=== PATIENT | female | born 1955 | race Caucasian/White ===

== ENCOUNTER 2018-10-25 20:56 | Inpatient (IN) | payer MEDICARE, MEDICAID ==
[~2018-10-25] VITALS: Ht 165.1 cm; Wt 103.0 kg
[~2018-10-25 20:56] MED LIST: AMLO5TAB4 PO; CALC-770 PO; CLOP75TA15 PO; ERGO500014 PO; LOSA25TA3 PO; METO25TA20 PO; MULT1CAP34 PO; NAPR250T4 PO; NYST15OI TP; RIFA600V4 IV; RISP2TAB5 PO; RIVA10TA PO; [UNRECOGNIZED DRUG - CODE] IV
--- NOTE | 2018-10-25 21:00 | NUR ---
Pt refused Vital Signs; refused placement of BP cuff, hitting staff with her hand.
--- NOTE | 2018-10-25 21:00 | NUR ---
Pt bibcayla from her facility on 5150 for DTO. She is here for psych eval. She is awake, hyperverbal, uncooperative, on RA. Pt reports pain on her right arm. Labs drawn, unable to provide urine at this time. Willl monitor patient.
[2018-10-25] MEDS ORDERED: IBUPROFEN 600 MG TABLET PO ONE ×2 (21:30→21:39)
[2018-10-25 21:40] LABS: BASOPHILS # (AUTO) 0.1 /CMM (0.0-0.2); BASOPHILS % (AUTO) 0.6 % (0.0-2.0); EOSINOPHILS % (AUTO) 1.2 % (0.0-6.0); HEMATOCRIT 42 % (33-45); HEMOGLOBIN 13.8 g/dL (11.5-14.8); LYMPHOCYTES # (AUTO) 2.2 /CMM (0.8-4.8); LYMPHOCYTES % (AUTO) 17.1 % (20.0-44.0); MEAN CORPUSCULAR HGB CONC 33 g/dl (31.0-36.0); MEAN CORPUSCULAR VOLUME 85 fL (82-100); MONOCYTES % (AUTO) 8.1 % (2.0-12.0); NEUTROPHILS # (AUTO) 9.4 /CMM (1.8-8.9); PLATELET COUNT (AUTO) 273 /CMM (150-450); RED BLOOD CELL COUNT(AUTO) 4.92 MIL/uL (4.0-5.2); WHITE BLOOD COUNT (AUTO) 12.9 K/uL (4.3-11.0)
[2018-10-25 21:59] LABS: CALCIUM, SERUM 8.7 mg/dL (8.5-10.1); CARBON DIOXIDE 25 mmol/L (21-32); CHLORIDE 91 mmol/L (98-107); CREATININE 0.6 mg/dL (0.6-1.3); GLUCOSE 135 mg/dL (74-106); POTASSIUM 4.1 mmol/L (3.5-5.1); SODIUM SERUM 124 mmol/L (136-145); UREA NITROGEN, BLOOD 10 mg/dL (7-18)
[2018-10-25 22:05] LABS: ALANINE AMINOTRANSFERASE 13 U/L (12-78); ALBUMIN 3.4 g/dL (3.4-5.0); ALCOHOL, BLOOD < 3 mg/dL (0-0); ALKALINE PHOSPHATASE 80 U/L (46-116); ASPARTATE AMINOTRANSFERASE 13 U/L (15-37); BILIRUBIN,DIRECT 0.1 mg/dL (0.0-0.2); BILIRUBIN,TOTAL 0.4 mg/dL (0.2-1.0); TOTAL PROTEIN, SERUM 7.7 g/dL (6.4-8.2)
--- NOTE | 2018-10-25 22:18 | NUR ---
Called nursing supervisor forming and tempering and notified her that this pt is now hyponatremic and requires a medical bed instead of GPS bed. Michael will call back.
--- NOTE | 2018-10-25 22:29 | NUR ---
Pt is assigned to med surg rm#: [id number], dx: hyponatremia, and accepting md: Dr Hurst.
[2018-10-25] MEDS ORDERED: IV NS 0.9% 1,000 ML BAG IV ONE (22:30)
--- NOTE | 2018-10-25 22:50 | NUR ---
Unable to inset F/C; pt is combative and aggresive; kicks staff and hits
[2018-10-25] MEDS ORDERED: MAGNESIUM HYDROXIDE 30 ML UDC PO PRN (23:00)
[2018-10-25] MEDS ORDERED: ZOLPIDEM TARTRATE 5 MG TABLET PO PRN (23:00)
[2018-10-25] MEDS ORDERED: ONDANSETRON HCL/PF 4 MG/2 ML VIAL IVP PRN (23:00)
[2018-10-25] MEDS ORDERED: HYDROCODONE/APAP 5/325MG 1 EACH TABLET PO PRN (23:00)
[2018-10-25] MEDS ORDERED: HALOPERIDOL LACTATE INJ 5 MG/ML VIAL IM ONE (23:00)
[2018-10-25] MEDS ORDERED: ACETAMINOPHEN 325 MG TABLET PO PRN (23:00)
[2018-10-25] MEDS ORDERED: Z GUARD REMEDY 2 OZ OINT TP PRN (23:00)
[2018-10-25] MEDS ORDERED: MAG HYDROX/AL HYDROX/SIMETH 30 ML UDC PO PRN (23:00)
[2018-10-25] MEDS ORDERED: HALOPERIDOL LACTATE INJ 5 MG/ML VIAL ONE (23:07)
--- NOTE | 2018-10-25 23:11 | NUR ---
administered Haldol 5mg IM on Lt deltoid
--- NOTE | 2018-10-26 | NUR ---
Pt continues to be aggressive, combative and uncooperative.
[2018-10-26] MEDS ORDERED: LORAZEPAM INJ 2 MG/ML VIAL ONE (00:16)
[2018-10-26] MEDS ORDERED: LORAZEPAM INJ 2 MG/ML VIAL IM PRN (00:30)
--- NOTE | 2018-10-26 01:28 | NUR ---
20G IV STARTED IN RUE/SHOULDER. IN AND OUT NOVAK DONE. APPROX 750ML PALE URINE OUTPUT NOTED. PT WAS CLEANED AND NEW LINENS APPLIED TO BED AND GOWN TO PT. DIAPER APPLIED TO PT.
--- NOTE | 2018-10-26 01:44 | NUR ---
CALLING REPORT TIMOTHY BATEMAN.
[2018-10-26 01:49] LABS: APPEARANCE,URINE SL CLOUDY (CLEAR); BILIRUBIN,URINE NEGATIVE (NEGATIVE); BLOOD, URINE TRACE-INTA Ery/uL (NEGATIVE); COLOR,URINE YELLOW (YELLOW); KETONES,URINE NEGATIVE (NEGATIVE); LEUKOCYTE ESTERASE ,URINE NEGATIVE (NEGATIVE); NITRITE, URINE NEGATIVE (NEGATIVE); PROTEIN,URINE NEGATIVE (NEGATIVE); UGLUCOSE NEGATIVE (NEGATIVE); UROBILINOGEN,URINE 0.2 EU/dL (0.2)
[2018-10-26 01:53] LABS: BACTERIA,URINE Moderate /HPF (None Seen); RBC,URINE 0-2 /HPF (0-2); SQUAMOUS EPITHELIAL CELL,UR Moderate /HPF (None Seen); WBC,URINE 0-2 /HPF (0-3)
[2018-10-26 02:05] VITALS: BP 104/61
--- NOTE | 2018-10-26 02:15 | NUR ---
MS COMMERCIAL HVAC SERVICE TECHNICIAN NOTES THE PATIENT IS BROUGHT TO THE UNIT ON A GURNEY AT 0205, TRANSFERRED THE PATIENT TO BED. PATIENT ALERT AND ORIENTED X2, CONFUSED, TALKATIVE, REDIRECTION AND REORIENTATION PROVIDED.THE PATIENT WAS BROUGHT IN ON A 5150 HOLD FOR MEDICAL CLEARANCE AND PSYCHIATRIC EVALUATION FOR INCREASED AGGRESSIVE BEHAVIOR TOWARDS STAFF AT HER LIVING FACILITY. ALL SAFETY MEASURES MAINTAINED, BED IN LOW LOCKED POSITION, BEDSIDE RAILS UP X4. SITTER AT BEDSIDE. INITIAL PHYSICAL ASSESSMENT DONE WITH PHOTOS TAKEN AND PLACED IN THE CHART RIGHT SHOULDER G 20 PATENT AND INTACT. NO SIGNS OF ACUTE RESPIRATORY DISTRESS NOTED DENIES ANY PAIN AT THIS TIME. WILL CONTINUE TO MONITOR ACCORDINGLY.
[2018-10-26 02:30] VITALS: BP 104/61
[2018-10-26] MEDS ORDERED: SENN-168 PO (02:49)
[2018-10-26] MEDS: IV NS 0.9% 1,000 ML IV PRN ×2 (04:48→23:02)
[2018-10-26 06:31] LABS: BASOPHILS % (AUTO) 0.4 % (0.0-2.0); EOSINOPHILS % (AUTO) 0.9 % (0.0-6.0); HEMATOCRIT 37 % (33-45); HEMOGLOBIN 12.3 g/dL (11.5-14.8); LYMPHOCYTES # (AUTO) 1.1 /CMM (0.8-4.8); LYMPHOCYTES % (AUTO) 13.1 % (20.0-44.0); MEAN CORPUSCULAR HGB CONC 33 g/dl (31.0-36.0); MEAN CORPUSCULAR VOLUME 85 fL (82-100); MONOCYTES # (AUTO) 0.6 /CMM (0.1-1.30); MONOCYTES % (AUTO) 6.9 % (2.0-12.0); NEUTROPHILS # (AUTO) 6.6 /CMM (1.8-8.9); NEUTROPHILS % (AUTO) 78.7 % (43.0-81.0); PLATELET COUNT (AUTO) 292 /CMM (150-450); RED BLOOD CELL COUNT(AUTO) 4.41 MIL/uL (4.0-5.2); WHITE BLOOD COUNT (AUTO) 8.4 K/uL (4.3-11.0)
[2018-10-26 06:37] LABS: BILIRUBIN,TOTAL 0.4 mg/dL (0.2-1.0); CALCIUM, SERUM 8.3 mg/dL (8.5-10.1); CREATININE 0.7 mg/dL (0.6-1.3); MAGNESIUM 1.7 mg/dL (1.8-2.4); PHOSPHORUS 3.8 mg/dL (2.5-4.9); TOTAL PROTEIN, SERUM 6.6 g/dL (6.4-8.2)
[2018-10-26 06:41] LABS: THYROID STIMULATING HORMONE 1.359 uIU/mL (0.358-3.74)
--- NOTE | 2018-10-26 06:57 | NUR ---
RN CLOSING NOTES PATIENT IN BED RESTING COMFORTABLY NO SOB OR ACUTE DISTRESS NOTED. PATIENT IS SLEEPING WITH SITTER AT BEDSIDE. PERIPHERAL IV INTACT PATENT. ALL NEEDS ATTENDED WILL ENDORSE TO AM NURSE FOR RICHARD.
--- NOTE | 2018-10-26 07:30 | NUR ---
RECEIVED PT. THIS AM ALERT AND ORIENTED X3.ON 191.HAS 1:1 SITTER. VS STABLE.YELLS OUT FROM TIME TO TIME AND TALKING TO SELF
[2018-10-26 08:00] VITALS: BP 131/61
[2018-10-26] MEDS ORDERED: ACET-868 PO (08:02)
[2018-10-26] MEDS ORDERED: CALC500T52 PO (08:02)
[2018-10-26] MEDS ORDERED: ACET-2605 PO (08:02)
[2018-10-26] MEDS ORDERED: MAGN400O6 PO (08:02)
[2018-10-26] MEDS ORDERED: AMLO5TAB4 PO (08:02)
[2018-10-26] MEDS ORDERED: BENZ0.5T43 PO (08:02)
[2018-10-26] MEDS ORDERED: RISP0.253 PO (08:02)
[2018-10-26] MEDS ORDERED: MULT-447 PO (08:02)
[2018-10-26] MEDS ORDERED: BISA10SU8 RC (08:02)
[2018-10-26] MEDS ORDERED: METO25TA20 PO (08:02)
[2018-10-26] MEDS ORDERED: NA P133E RC (08:02)
[2018-10-26] MEDS ORDERED: TRAZ-182 PO (08:02)
[2018-10-26] MEDS ORDERED: MAGNESIUM OXIDE 400 MG TABLET PO ONE (08:30)
--- NOTE | 2018-10-26 10:30 | NUR ---
TAKING MEDS,COMPLIANT.SIDE RAILS UP. MONITORING CLOSELY.
--- NOTE | 2018-10-26 11:30 | NUR ---
PHYSICAL TX IN TO SEE PT. AND SHE REFUSED TO COOPERATE.
--- NOTE | 2018-10-26 12:00 | NUR ---
ORAL MG REPLACEMENT DONE.
--- NOTE | 2018-10-26 12:50 | NUR ---
WOUND CARE CONSULT WOUND CARE RECEIVED CONSULT FOR RIGHT UNDER BREAST, ABDOMEN AND PERINEAL REDNESS. WOUND CARE WILL DEFER CONSULT AND TREATMENT PLANS TO PLASTIC SURGICAL TEAM WHO ARE CURRENTLY FOLLOWING THIS PATIENT. PATIENT WITH PAULETTE AT 16, ALL PRESSURE ULCER PREVENTION MEASURES ARE NOTED TO BE IN PLACE. WILL SEE PRN.
[2018-10-26] MEDS: NYSTATIN CREAM 15 GM TUBE TP SCH (14:46)
--- NOTE | 2018-10-26 15:30 | NUR ---
IN AND CUTTING PT'S TOENAILS.PT. TOLERATED WELL.
[2018-10-26 16:00] VITALS: BP 126/79
[2018-10-26] MEDS ORDERED: LORAZEPAM 0.5 MG TABLET PO PRN (17:00)
--- NOTE | 2018-10-26 17:30 | NUR ---
DR. FIGUEROA IN AND DID PSYCH EVAL. MEDS ORDERED.
[2018-10-26] MEDS: BENZTROPINE MESYLATE (1 MG) 1 MG TABLET PO SCH (18:08)
[2018-10-26] MEDS: risperiDONE-M 0.5 MG TAB.RAPDIS PO SCH (18:09)
[2018-10-26] MEDS: GABAPENTIN 100 MG CAPSULE PO SCH (18:09)
--- NOTE | 2018-10-26 19:20 | NUR ---
RN MS NOTES RECEIVED PT IN BED, ASLEEP BUT EASILY AROUSABLE, VERBALLY RESPONSIVE, NO SOB, IN NO ACUTE DISTRESS. PT CONTINUES TO RECEIVE IVF ORDERED, INFUSING WELL. PT WITH SITTER AT BEDSIDE, NO SI/HI AT THIS TIME. PLACED CALL LIGHT WITHIN EASY REACH, BED IN LOW POSITION AND LOCKED IN PLACE. WILL CONTINUE TO MONITOR PT.
[2018-10-27] MEDS: NYSTATIN CREAM 15 GM TUBE TP SCH ×2 (01:44→12:10)
--- NOTE | 2018-10-27 06:21 | NUR ---
CLOSING NOTES PT IN BED, ALERT AND ORIENTED X 2, VERBALLY RESPONSIVE. NOTED PT WITH EPISODES OF YELLING AND USING OFFENSIVE LANGUAGE TOWARDS STAFF. ADMINISTERED ATIVAN ORDERED, PT COMPLIANT WITH MEDICATION ADMINISTRATION. PT SLEPT INTERMITTENTLY THROUGHOUT THE REST OF THE SHIFT, ALL NEEDS ATTENDED TO, WOUND CARE DONE. TURNED AND REPOSITIONED Q2 HOURS. CALL LIGHT WITHIN EASY REACH. WILL ENDORSE TO AM SHIFT NURSE FOR CONTINUITY OF CARE.
--- NOTE | 2018-10-27 07:28 | NUR ---
MS RN OPENING NOTES RECEIVED PT AWAKE IN BED IN NO ACUTE SIGNS OF DISTRESS. A/O X2-3. VERBALLY RESPONSIVE WITH NO C/O PAIN OR DISCOMFORTS AT THIS TIME. PT WITH SITTER AT BEDSIDE, DENIES SI/HI. ON ROOM AIR, BREATHING EVEN AND UNLABORED. IV ACCESS ON RIGHT SHOULDER INTACT AND PATENT, IVF OF NS @ 75ML/HR INFUSING WELL. ALL SAFETY MEASURES IN PLACE. HOB ELEVATED. CALL LIGHT WITHIN EASY REACH, BED IN LOW LOCKED POSITION WITH SR UP APPROPRIATE. WILL CONTINUE TO MONITOR PT ACCORDINGLY.
[2018-10-27 08:00] VITALS: BP 144/78
[2018-10-27] MEDS: GABAPENTIN 100 MG CAPSULE PO SCH ×2 (08:06→12:10)
[2018-10-27] MEDS: risperiDONE-M 0.5 MG TAB.RAPDIS PO SCH ×2 (08:06→12:10)
[2018-10-27] MEDS: BENZTROPINE MESYLATE (1 MG) 1 MG TABLET PO SCH (08:06)
[2018-10-27 10:25] LABS: CALCIUM, SERUM 8.4 mg/dL (8.5-10.1); CREATININE 0.9 mg/dL (0.6-1.3); POTASSIUM 4.1 mmol/L (3.5-5.1)
--- NOTE | 2018-10-27 12:07 | NUR ---
RN NOTES PATIENT CONFUSED, EASILY IRRITATED AND REFUSED OT ASSESSMENT. WILL CONTINUE TO MONITOR
--- NOTE | 2018-10-27 14:45 | NUR ---
RADIO AERIAL INSTALLER NOTES PATIENT CLEARED FOR DISCHARGE TO GPS. A/O X3. VERBALLY RESPONSIVE WITH EPISODES OF CONFUSION NOTED. PT WITH STABLE V/S AND RECORDED. IV ACCESS REMOVED WITH NO BLEEDING NOTED. ALL BELONGINGS ACCOUNTED FOR. PT TRANSPORTED TO GPS VIA HER BED AT 1440 IN STABLE CONDITION AND WITHOUT PROBLEM. REPORT GIVEN TO NURSE WORKMAN.
== END 2018-10-27 14:15 | DRG 640 ==
LOC: ER 20:58 → MED 22:44
PROVIDERS: ADMIT Internal Medicine; ATTEND Nurse Practitioner Acute Care
DX: E87.1 Hypo-osmolality and hyponatremia (principal); G93.41 Metabolic encephalopathy; E44.0 Moderate protein-calorie malnutrition; E78.5 Hyperlipidemia, unspecified; I10 Essential (primary) hypertension; F25.0 Schizoaffective disorder, bipolar type; F29 Unspecified psychosis not due to a substance or known physiological condition; E83.42 Hypomagnesemia; F03.90 Unspecified dementia, unspecified severity, without behavioral disturbance, psychotic disturbance, mood disturbance, and anxiety; E66.01 Morbid (severe) obesity due to excess calories; Z68.37 Body mass index [BMI] 37.0-37.9, adult; E83.51 Hypocalcemia; L30.4 Erythema intertrigo; E86.1 Hypovolemia; L60.3 Nail dystrophy; M79.672 Pain in left foot; M79.671 Pain in right foot; Z96.641 Presence of right artificial hip joint
CPT/HCPCS: 36415; 80048-TC; 80053-TC; 80061-TC; 80076-TC; 80305; 81000-TC; 83735-TC; 84100-TC; 84443-TC; 85025-TC; 87081-TC; 87086-TC; A4606; G0378; G0480; J1630; J2060; J7030; Z7610

== ENCOUNTER 2018-10-27 13:28 | Inpatient (IN) | payer MEDICARE, MEDICAID ==
[~2018-10-27] VITALS: Ht 165.1 cm; Wt 104.3 kg
[~2018-10-27 13:28] MED LIST changes: +ACET-2605 PO; +ACET-868 PO; +BENZ0.5T43 PO; +BISA10SU8 RC; -CALC-770 PO; +CALC500T52 PO; +MAGN400O6 PO; +MULT-447 PO; -MULT1CAP34 PO; +NA P133E RC; -NAPR250T4 PO; -NYST15OI TP; -RIFA600V4 IV; +RISP0.253 PO; -RISP2TAB5 PO; -RIVA10TA PO; +SENN-168 PO; +TRAZ-182 PO; -[UNRECOGNIZED DRUG - CODE] IV
[2018-10-27] MEDS ORDERED: MAG HYDROX/AL HYDROX/SIMETH 30 ML UDC PO PRN (15:00)
--- NOTE | 2018-10-27 15:00 | NUR ---
GPS/RN RECEVID PT DIRECT ADMIT FROM MS ON 5150 HOLD. NO ACUTE DISTRESS NOTED. PT IS RESISITIVE TO CARE PER MS RN REPORT. PT REFUSED TO SIGN ADMITTING PAPERWORK AND TO ALLOW THE RN TO DO SKIN ASSESSMENT.ADMITTING ORDERS FROM DR FIGUEROA RECEIVED AND CARRIED OUT. KATERINA SINGH NP MADE AWARE OF ADMISSION WELL. PT REFUSED MRSA NARES SWAB.
[2018-10-27 16:00] VITALS: BP 149/62
[2018-10-27] MEDS ORDERED: BISACODYL SUPP (10 MG) 10 MG/SUPP.RECT SUPP.RECT RC PRN (18:00)
[2018-10-27] MEDS ORDERED: MISCELLANEOUS MED 1 EA EA PO PRN (18:00)
[2018-10-27] MEDS ORDERED: NA PHOS,M-B/NA PHOS,DI-BA 1 EA ENEMA RC PRN (18:00)
[2018-10-27] MEDS ORDERED: MAGNESIUM HYDROXIDE 30 ML UDC PO PRN (18:00)
[2018-10-27] MEDS ORDERED: ACETAMINOPHEN 325 MG TABLET PO PRN (18:00)
[2018-10-27] MEDS: ERGOCALCIFEROL (VITAMIN D 2) 50,000 UNIT CAPSULE PO SCH (18:00)
--- NOTE | 2018-10-27 18:52 | NUR ---
GPS/RN PT REFUSED 1800 MEDS, REFUSED MRSA SWAB. ENDORSED TO BETZAIDA AGUIRRE TO FOLLOW UP
--- NOTE | 2018-10-27 20:24 | NUR ---
PATIENT IS VERY UNCOOPERATIVE, REFUSED VITALS, HAS BP MEDS DUE. WILL TRY LATER. DR. BLANDON CAME AND SEEN PATIENT.
[2018-10-27] MEDS: METOPROLOL TARTRATE 25 MG TABLET PO SCH (21:00)
[2018-10-27] MEDS: SENNOSIDES 8.6 MG TABLET PO SCH (22:00)
[2018-10-28 08:00] VITALS: BP 139/69
[2018-10-28] MEDS: LOSARTAN POTASSIUM 25 MG TABLET PO SCH (09:00)
[2018-10-28] MEDS: MULTIVITAMINS,THERAGRAN 1 UDTAB TABLET PO SCH (09:00)
[2018-10-28] MEDS: CLOPIDOGREL BISULFATE 75 MG TABLET PO SCH (09:00)
[2018-10-28] MEDS: CALCIUM CARBONATE (1250) 500 MG TABLET PO SCH (09:00)
[2018-10-28] MEDS: METOPROLOL TARTRATE 25 MG TABLET PO SCH ×2 (09:00→21:00)
[2018-10-28] MEDS: AMLODIPINE BESYLATE 5 MG TABLET PO SCH (09:00)
[2018-10-28] MEDS: BENZTROPINE MESYLATE (1 MG) 1 MG TABLET PO SCH ×2 (11:00→17:31)
[2018-10-28] MEDS: GABAPENTIN 100 MG CAPSULE PO SCH ×3 (11:00→17:31)
[2018-10-28] MEDS: risperiDONE 1 MG TABLET PO SCH ×2 (12:00→17:31)
--- NOTE | 2018-10-28 12:27 | NUR ---
GPS/RN PT REFUSED MEDS IN AM , REFUSED 100 AND 1200 MEDS. OFFERED X3. STATES: " I ONLY BELIEVE [facility] DOCTOR.." DR ZAMORA AWARE OF PT BEING NOT COOPERATIVE WITH CARE
[2018-10-28] MEDS: HALOPERIDOL LACTATE INJ 5 MG/ML VIAL IM PRN (12:49)
[2018-10-28 16:05] VITALS: BP 147/53
--- NOTE | 2018-10-28 19:30 | NUR ---
GPS RN NOTE, RECEIVED PATIENT AWAKE AND IN BED, NO S/S OR COMPLAINTS OF PAIN AT THIS TIME. PATIENT IS DISPLAYING NO S/S OF APPARENT DISTRESS AT THIS TIME. PATIENT BREATHING IS UNLABORED WITH EQUAL RISE AND FALL OF THE CHEST. PATIENT IS ALERT AND ORIENTED X 1 ON ROOM AIR WITH A SPO2 OF 95%. PATIENT IS MED SELECTIVE, UNCOOPERATIVE, CONFUSED, ANXIOUS, DISORGANIZED, PARANOID, AND NEEDS REDIRECTION. PATIENT IS CONFUSED BUT DENIES SUICIDE IDEATIONS AND HOMICIDAL IDEATIONS AT THIS TIME. PATIENT ASSISTED WITH TURNING AND REPOSITIONING Q 2HRS AND PRN FOR COMFORT AND CIRCULATION. PATIENT HAS NO NEEDS AT THIS TIME. PATIENT EDUCATED ON THE USE OF THE CALL MARTINEZ. PATIENT BED SIDE RAILS UP X 2 FOR SAFETY, BED IS LOCKED, LOW, AND I WILL CONTINUE TO MONITOR AND MAINTAIN SAFETY Q15 MIN WITH THE HELP OF STAFF.
[2018-10-28 20:00] VITALS: BP 122/58
[2018-10-28] MEDS: SENNOSIDES 8.6 MG TABLET PO SCH (21:31)
--- NOTE | 2018-10-28 21:31 | NUR ---
GPS RN NOTE, PATIENT REFUSED TO TAKE SENOKOT 8.6 MG PO Q12HR AND LOPRESSOR 25MG PO Q12HR. OFFERED SENOKOT AND LOPRESSOR THREE TIMES AND STILL PATIENT REFUSED STATING, " I DON'T WON'T ANY MEDICATION TONIGHT GET OUT OF MY ROOM ". EDUCATED ON THE RISKS AND BENEFITS OF TAKING AND REFUSING AFOREMENTIONED MEDICATION. WILL CONTINUE TO MONITOR TIS PATIENT.
[2018-10-29 08:08] VITALS: BP 121/63
[2018-10-29] MEDS: LOSARTAN POTASSIUM 25 MG TABLET PO SCH (08:37)
[2018-10-29] MEDS: GABAPENTIN 100 MG CAPSULE PO SCH ×3 (08:37→17:41)
[2018-10-29] MEDS: BENZTROPINE MESYLATE (1 MG) 1 MG TABLET PO SCH ×2 (08:37→17:41)
[2018-10-29] MEDS: METOPROLOL TARTRATE 25 MG TABLET PO SCH ×2 (08:37→21:00)
[2018-10-29] MEDS: CLOPIDOGREL BISULFATE 75 MG TABLET PO SCH (08:38)
[2018-10-29] MEDS: risperiDONE 1 MG TABLET PO SCH ×2 (08:38→17:41)
[2018-10-29] MEDS: HALOPERIDOL LACTATE INJ 5 MG/ML VIAL IM PRN (08:38)
[2018-10-29] MEDS: CALCIUM CARBONATE (1250) 500 MG TABLET PO SCH (08:38)
[2018-10-29] MEDS: AMLODIPINE BESYLATE 5 MG TABLET PO SCH (08:38)
[2018-10-29] MEDS: MULTIVITAMINS,THERAGRAN 1 UDTAB TABLET PO SCH (08:38)
--- NOTE | 2018-10-29 08:39 | NUR ---
GPS/RN PT REFUSED ALL AM MEDS OFFERED X3. HALDOL 2MG IM ADMINISTERED ORDERED
--- NOTE | 2018-10-29 16:35 | NUR ---
GPS/RN PT AGREED TO TAKE NEURONTIN PO SCHEDULED FOR 1300
[2018-10-29 16:40] VITALS: BP 135/74
--- NOTE | 2018-10-29 19:30 | NUR ---
GPS RN NOTE, RECEIVED PATIENT AWAKE AND IN BED, NO S/S OR COMPLAINTS OF PAIN AT THIS TIME. PATIENT IS DISPLAYING NO S/S OF APPARENT DISTRESS AT THIS TIME. PATIENT BREATHING IS UNLABORED WITH EQUAL RISE AND FALL OF THE CHEST. PATIENT IS ALERT AND ORIENTED X 1 ON ROOM AIR WITH A SPO2 OF 99%. PATIENT IS MED SELECTIVE, UNCOOPERATIVE, CONFUSED, ANXIOUS, DISORGANIZED, PARANOID, AND NEEDS REDIRECTION. PATIENT IS CONFUSED BUT DENIES SUICIDE IDEATIONS AND HOMICIDAL IDEATIONS AT THIS TIME. PATIENT ASSISTED WITH TURNING AND REPOSITIONING Q 2HRS AND PRN FOR COMFORT AND CIRCULATION. PATIENT HAS NO NEEDS AT THIS TIME. PATIENT EDUCATED ON THE USE OF THE CALL MARTINEZ. PATIENT BED SIDE RAILS UP X 2 FOR SAFETY, BED IS LOCKED, LOW, AND I WILL CONTINUE TO MONITOR AND MAINTAIN SAFETY Q15 MIN WITH THE HELP OF STAFF.
[2018-10-29 20:00] VITALS: BP 147/69
--- NOTE | 2018-10-29 20:00 | NUR ---
GPS RN NOTE, PATIENT REFUSED TO HAVE PICTURES TAKEN TODAY. EXPLAINED PICTURE POLICY AND OFFERED TO TAKE PICTURES THREE TIMES AND STILL PATIENT REFUSED STATING, " I DON'T WANT PICTURES TAKEN OF MY BODY, LEAVE ME ALONE ". EDUCATED PATIENT ON THE RISKS AND BENEFITS OF TAKING AND REFUSING PICTURES. WILL CONTINUE TO MONITOR TIS PATIENT.
[2018-10-29] MEDS: SENNOSIDES 8.6 MG TABLET PO SCH (21:50)
--- NOTE | 2018-10-29 21:50 | NUR ---
GPS RN NOTE, PATIENT REFUSED TO TAKE SENOKOT 8.6 MG PO Q12HR AND LOPRESSOR 25MG PO Q12HR. OFFERED SENOKOT AND LOPRESSOR THREE TIMES AND STILL PATIENT REFUSED STATING, " I DON'T WON'T ANY MEDICATIONS ". EDUCATED ON THE RISKS AND BENEFITS OF TAKING AND REFUSING AFOREMENTIONED MEDICATION. WILL CONTINUE TO MONITOR TIS PATIENT.
[2018-10-30] MEDS: MAGNESIUM HYDROXIDE 30 ML UDC PO PRN (05:36)
[2018-10-30] MEDS: ACETAMINOPHEN 325 MG TABLET PO PRN (05:36)
--- NOTE | 2018-10-30 05:36 | NUR ---
GPS RN NOTE, PATIENT HAS A COMPLAINT OF HAVING CONSTIPATION AND IS REQUESTING MILK OF MAGNESIA AT THIS TIME. PATIENT VITAL SIGNS ARE STABLE. GAVE MILK OF MAGNESIA 30 ML Q6HR PRN ORDERED. WILL CONTINUE TO MONITOR THIS PATIENT.
--- NOTE | 2018-10-30 05:36 | NUR ---
GPS RN NOTE, PATIENT HAS A COMPLAINT OF HEADACHE AT 3 OUT 10 ON THE PAIN SCALE AND IS REQUESTING TYLENOL AT THIS TIME. PATIENT VITAL SIGNS ARE STABLE. GAVE TYLENOL 650 MG PO Q6HR PRN ORDERED. WILL REASSESS PAIN AND I WILL CONTINUE TO MONITOR THIS PATIENT.
[2018-10-30 08:00] VITALS: BP 146/71
[2018-10-30] MEDS: BENZTROPINE MESYLATE (1 MG) 1 MG TABLET PO SCH ×2 (08:42→17:00)
[2018-10-30] MEDS: LOSARTAN POTASSIUM 25 MG TABLET PO SCH (08:42)
[2018-10-30] MEDS: METOPROLOL TARTRATE 25 MG TABLET PO SCH ×2 (08:42→20:28)
[2018-10-30] MEDS: AMLODIPINE BESYLATE 5 MG TABLET PO SCH (08:42)
[2018-10-30] MEDS: GABAPENTIN 100 MG CAPSULE PO SCH ×3 (08:42→17:00)
[2018-10-30] MEDS: MULTIVITAMINS,THERAGRAN 1 UDTAB TABLET PO SCH (08:43)
[2018-10-30] MEDS: risperiDONE 1 MG TABLET PO SCH ×2 (08:43→17:00)
[2018-10-30] MEDS: CLOPIDOGREL BISULFATE 75 MG TABLET PO SCH (08:43)
[2018-10-30] MEDS: CALCIUM CARBONATE (1250) 500 MG TABLET PO SCH (08:43)
--- NOTE | 2018-10-30 10:54 | NUR ---
Initial discharge plan: The patient currently resides at [facility] ([address] [place] [address] ). Per the patient's conservator/sister Pamela Joseph [phone], she would like the patient to return there. SW spoke to Manley from [facility] who stated that the patient is able to return there once stable for discharge. She is being followed by Dr. Conner for psych and by Dr. Germain for medical. She will need smoking cessation resources prior to discharge.
[2018-10-30] MEDS: NYSTATIN TOP POWDER 15 GM BOTTLE TP SCH (15:48)
[2018-10-30 16:00] VITALS: BP 155/79
[2018-10-30] MEDS: HALOPERIDOL LACTATE INJ 5 MG/ML VIAL IM PRN (17:20)
--- NOTE | 2018-10-30 19:23 | NUR ---
RECEIVED IN BED, AWAKE, ALERT, A/O X1, CONFUSED, UNCOOPERATIVE. CALM, QUIET, INTERACTS WHEN ENGAGED. NO APPARENT DISTRESS NOTED.
[2018-10-30 20:08] VITALS: BP 136/73
[2018-10-30] MEDS: SENNOSIDES 8.6 MG TABLET PO SCH (20:30)
[2018-10-30] MEDS: TEMAZEPAM 7.5 MG CAPSULE PO PRN (20:32)
[2018-10-31] MEDS: NYSTATIN TOP POWDER 15 GM BOTTLE TP SCH ×3 (02:53→18:12)
[2018-10-31 08:00] VITALS: BP 150/72
[2018-10-31] MEDS: AMLODIPINE BESYLATE 5 MG TABLET PO SCH ×2 (09:00→18:11)
[2018-10-31] MEDS: BENZTROPINE MESYLATE (1 MG) 1 MG TABLET PO SCH ×3 (09:56→18:11)
[2018-10-31] MEDS: risperiDONE 1 MG TABLET PO SCH ×3 (09:56→18:11)
[2018-10-31] MEDS: GABAPENTIN 100 MG CAPSULE PO SCH ×5 (09:57→18:10)
[2018-10-31] MEDS: CALCIUM CARBONATE (1250) 500 MG TABLET PO SCH (09:57)
[2018-10-31] MEDS: CLOPIDOGREL BISULFATE 75 MG TABLET PO SCH (09:57)
[2018-10-31] MEDS: MULTIVITAMINS,THERAGRAN 1 UDTAB TABLET PO SCH (09:57)
[2018-10-31] MEDS: METOPROLOL TARTRATE 25 MG TABLET PO SCH ×2 (09:57→21:10)
[2018-10-31] MEDS: LOSARTAN POTASSIUM 25 MG TABLET PO SCH (09:57)
[2018-10-31] MEDS: Z GUARD REMEDY 2 OZ OINT TP SCH (09:58)
[2018-10-31] MEDS: MAGNESIUM HYDROXIDE 30 ML UDC PO PRN (10:18)
[2018-10-31] MEDS: ACETAMINOPHEN 325 MG TABLET PO PRN (10:18)
--- NOTE | 2018-10-31 10:18 | NUR ---
MED WITH MOM AND TYLENOL FOR AILYN. KNEE PAIN.
[2018-10-31 16:12] VITALS: BP 131/71
--- NOTE | 2018-10-31 18:18 | NUR ---
REFUSED ALL ADRIANA. MEDS INCLUDING MYCOSTATIN.
[2018-10-31] MEDS: HALOPERIDOL LACTATE INJ 5 MG/ML VIAL IM PRN (19:41)
--- NOTE | 2018-10-31 19:45 | NUR ---
HALDOL INJ. GIVEN IM AT THIS TIME PT. REFUSED 1700 RISPERDAL.
[2018-10-31 20:03] VITALS: BP 136/72
[2018-10-31] MEDS: SENNOSIDES 8.6 MG TABLET PO SCH (21:19)
--- NOTE | 2018-10-31 21:19 | NUR ---
GPS-RN PATIENT REFUSED SCHEDULED MED SENOKOT. OFFERED X3, EDUCATION GIVEN, BUT PATIENT STILL REFUSED.
[2018-11-01] MEDS: NYSTATIN TOP POWDER 15 GM BOTTLE TP SCH ×3 (02:00→14:02)
--- NOTE | 2018-11-01 07:07 | NUR ---
GPS RN INITIAL NOTES Report received at bedside. Patient received in bed, sleeping, easily aroused and verbally responsive. Not in any type of distress. No SOB noted or reported. Safety measures in place. Bed in locked and lowest position. Will continue to monitor and assess patient
[2018-11-01 08:00] VITALS: BP 141/74
[2018-11-01] MEDS: BENZTROPINE MESYLATE (1 MG) 1 MG TABLET PO SCH ×2 (08:15→16:56)
[2018-11-01] MEDS: MULTIVITAMINS,THERAGRAN 1 UDTAB TABLET PO SCH (08:16)
[2018-11-01] MEDS: LOSARTAN POTASSIUM 25 MG TABLET PO SCH (08:16)
[2018-11-01] MEDS: risperiDONE 1 MG TABLET PO SCH ×3 (08:16→16:56)
[2018-11-01] MEDS: CALCIUM CARBONATE (1250) 500 MG TABLET PO SCH (08:16)
[2018-11-01] MEDS: AMLODIPINE BESYLATE 5 MG TABLET PO SCH (08:17)
[2018-11-01] MEDS: METOPROLOL TARTRATE 25 MG TABLET PO SCH ×2 (08:17→21:15)
[2018-11-01] MEDS: CLOPIDOGREL BISULFATE 75 MG TABLET PO SCH (08:17)
[2018-11-01] MEDS: GABAPENTIN 100 MG CAPSULE PO SCH ×3 (08:17→16:58)
[2018-11-01] MEDS: Z GUARD REMEDY 2 OZ OINT TP SCH (11:13)
[2018-11-01 16:00] VITALS: BP 163/76
--- NOTE | 2018-11-01 18:26 | NUR ---
GPS RN CLOSING NOTES Patient remained in bed, awake and comfortable. No facial grimacing or moaning noted. Denies any pain. Had episodes of screaming with disturbing behavior towards room mate. No SOB/labored breathing noted. Not in any apparent distress. Dr. Duran came to visit and assess patient. All needs provided and met. Safety measures implemented and observed. Kept clean and dry. Patient refused to be turned and repositioned every two hours. Explained risks vs beenfits but continued to refuse. Skin treatment rendered as ordered. Bed in locked and lowest position with bed alarm on and call farah within reach. Will endorse to oncoming shift nurse
[2018-11-01 20:00] VITALS: BP 155/83
[2018-11-01] MEDS: SENNOSIDES 8.6 MG TABLET PO SCH (21:14)
[2018-11-01] MEDS: TEMAZEPAM 7.5 MG CAPSULE PO PRN (21:44)
[2018-11-01] MEDS: LORAZEPAM 0.5 MG TABLET PO PRN (23:36)
--- NOTE | 2018-11-01 23:36 | NUR ---
GPS RN PRN NOTES Patient is having an episode of restlessness and agitation. Administered Ativan 0.5mg PO as ordered. Will continue to monitor patient's safety and behavior.
[2018-11-02] MEDS: NYSTATIN TOP POWDER 15 GM BOTTLE TP SCH ×2 (01:33→14:00)
[2018-11-02 08:00] VITALS: BP 159/84
[2018-11-02] MEDS: LOSARTAN POTASSIUM 25 MG TABLET PO SCH (08:44)
[2018-11-02] MEDS: CLOPIDOGREL BISULFATE 75 MG TABLET PO SCH (08:44)
[2018-11-02] MEDS: risperiDONE 1 MG TABLET PO SCH ×3 (08:44→16:49)
[2018-11-02] MEDS: AMLODIPINE BESYLATE 5 MG TABLET PO SCH (08:44)
[2018-11-02] MEDS: BENZTROPINE MESYLATE (1 MG) 1 MG TABLET PO SCH ×2 (08:44→16:49)
[2018-11-02] MEDS: CALCIUM CARBONATE (1250) 500 MG TABLET PO SCH (08:44)
[2018-11-02] MEDS: MULTIVITAMINS,THERAGRAN 1 UDTAB TABLET PO SCH (08:44)
[2018-11-02] MEDS: GABAPENTIN 100 MG CAPSULE PO SCH ×3 (08:44→16:49)
[2018-11-02] MEDS: METOPROLOL TARTRATE 25 MG TABLET PO SCH ×2 (08:45→21:27)
[2018-11-02] MEDS: Z GUARD REMEDY 2 OZ OINT TP SCH (08:52)
--- NOTE | 2018-11-02 11:45 | NUR ---
Rodríguez, marketing automation analyst from [facility] [address] [place] [address] came to visit pt and speak to SW regarding pts progress and discharge date. SW informed him that she would notify him when MD has orders discharge.
[2018-11-02 16:07] VITALS: BP 142/69
[2018-11-02 20:00] VITALS: BP 129/79
[2018-11-02] MEDS: LORAZEPAM 0.5 MG TABLET PO PRN (21:27)
[2018-11-02] MEDS: SENNOSIDES 8.6 MG TABLET PO SCH (21:27)
--- NOTE | 2018-11-02 21:27 | NUR ---
GPS RN NOTE, PATIENT HAS A COMPLAINT OF FEELING ANXIOUS AND IS REQUESTING ATIVAN AT THIS TIME. PATIENT VITAL SIGNS ARE STABLE. GAVE ATIVAN 0.5MG PO Q6HR PRN ORDERED. WILL REASSESS FOR ANXIETY AND I WILL CONTINUE TO MONITOR THIS PATIENT.
[2018-11-02] MEDS: TEMAZEPAM 7.5 MG CAPSULE PO PRN (23:23)
--- NOTE | 2018-11-02 23:23 | NUR ---
GPS RN NOTE, PATIENT HAS A COMPLAINT OF NOT BEING ABLE TO SLEEP AND IS REQUESTING RESTORIL AT THIS TIME. PATIENT VITAL SIGNS ARE STABLE. GAVE RESTORIL 7.5MG PO HS PRN ORDERED. WILL REASSESS FOR INSOMNIA AND I WILL CONTINUE TO MONITOR THIS PATIENT.
[2018-11-03] MEDS: NYSTATIN TOP POWDER 15 GM BOTTLE TP SCH ×2 (02:16→14:28)
[2018-11-03 08:00] VITALS: BP 140/73
[2018-11-03] MEDS: LORAZEPAM 0.5 MG TABLET PO PRN (08:02)
--- NOTE | 2018-11-03 08:04 | NUR ---
GPS/RN-NOTES PATIENT LAYING IN BED SCREAMING AND YELLING THROWING TOWEL ON THE FLOOR. REDIRECTED AND ATIVAN GIVEN PRN ORDER. ALL NEEDS ATTENDED AND ANTICIPATED. WILL CONT. MONITORING FOR SAFETY AND BEHAVIOR.
[2018-11-03] MEDS: GABAPENTIN 100 MG CAPSULE PO SCH ×3 (08:49→17:04)
[2018-11-03] MEDS: risperiDONE 1 MG TABLET PO SCH ×4 (08:50→17:04)
[2018-11-03] MEDS: CALCIUM CARBONATE (1250) 500 MG TABLET PO SCH (08:50)
[2018-11-03] MEDS: BENZTROPINE MESYLATE (1 MG) 1 MG TABLET PO SCH ×3 (08:51→17:05)
[2018-11-03] MEDS: AMLODIPINE BESYLATE 5 MG TABLET PO SCH (08:51)
[2018-11-03] MEDS: METOPROLOL TARTRATE 25 MG TABLET PO SCH ×2 (08:51→21:33)
[2018-11-03] MEDS: LOSARTAN POTASSIUM 25 MG TABLET PO SCH (08:51)
[2018-11-03] MEDS: MULTIVITAMINS,THERAGRAN 1 UDTAB TABLET PO SCH (08:51)
[2018-11-03] MEDS: CLOPIDOGREL BISULFATE 75 MG TABLET PO SCH (08:51)
[2018-11-03] MEDS: Z GUARD REMEDY 2 OZ OINT TP SCH (08:54)
--- NOTE | 2018-11-03 13:14 | NUR ---
GPS/RN-NOTES DID NOT ADMINISTER RISPERDAL 2MG P.O DUE TO RISPERDAL 1.5MG P.O WAS JUST ADMINISTERED AT 1222.
[2018-11-03 16:00] VITALS: BP 122/69
[2018-11-03] MEDS: ERGOCALCIFEROL (VITAMIN D 2) 50,000 UNIT CAPSULE PO SCH (17:54)
[2018-11-03] MEDS: SENNOSIDES 8.6 MG TABLET PO SCH (21:33)
[2018-11-04] MEDS: TEMAZEPAM 7.5 MG CAPSULE PO PRN ×2 (01:11→21:13)
[2018-11-04] MEDS: NYSTATIN TOP POWDER 15 GM BOTTLE TP SCH ×2 (01:12→16:18)
[2018-11-04] MEDS: LORAZEPAM 0.5 MG TABLET PO PRN (03:53)
[2018-11-04 08:27] VITALS: BP 158/100
[2018-11-04] MEDS: CALCIUM CARBONATE (1250) 500 MG TABLET PO SCH (08:56)
[2018-11-04] MEDS: BENZTROPINE MESYLATE (1 MG) 1 MG TABLET PO SCH ×3 (08:56→16:21)
[2018-11-04] MEDS: MULTIVITAMINS,THERAGRAN 1 UDTAB TABLET PO SCH (08:56)
[2018-11-04] MEDS: GABAPENTIN 100 MG CAPSULE PO SCH ×3 (08:56→16:20)
[2018-11-04] MEDS: METOPROLOL TARTRATE 25 MG TABLET PO SCH ×2 (08:57→20:43)
[2018-11-04] MEDS: risperiDONE 1 MG TABLET PO SCH ×3 (08:57→16:20)
[2018-11-04] MEDS: LOSARTAN POTASSIUM 25 MG TABLET PO SCH (08:57)
[2018-11-04] MEDS: AMLODIPINE BESYLATE 5 MG TABLET PO SCH (08:57)
[2018-11-04] MEDS: Z GUARD REMEDY 2 OZ OINT TP SCH (08:58)
[2018-11-04] MEDS: CLOPIDOGREL BISULFATE 75 MG TABLET PO SCH (08:58)
[2018-11-04 16:00] VITALS: BP 118/56
[2018-11-04 20:00] VITALS: BP 154/74
[2018-11-04] MEDS: SENNOSIDES 8.6 MG TABLET PO SCH (21:13)
[2018-11-05] MEDS: NYSTATIN TOP POWDER 15 GM BOTTLE TP SCH ×2 (03:03→16:44)
[2018-11-05 08:00] VITALS: BP 139/72
[2018-11-05] MEDS: MULTIVITAMINS,THERAGRAN 1 UDTAB TABLET PO SCH (09:45)
[2018-11-05] MEDS: risperiDONE 1 MG TABLET PO SCH ×3 (09:45→16:58)
[2018-11-05] MEDS: CALCIUM CARBONATE (1250) 500 MG TABLET PO SCH (09:45)
[2018-11-05] MEDS: GABAPENTIN 100 MG CAPSULE PO SCH ×3 (09:45→16:58)
[2018-11-05] MEDS: AMLODIPINE BESYLATE 5 MG TABLET PO SCH (09:46)
[2018-11-05] MEDS: LOSARTAN POTASSIUM 25 MG TABLET PO SCH (09:46)
[2018-11-05] MEDS: BENZTROPINE MESYLATE (1 MG) 1 MG TABLET PO SCH ×3 (09:46→16:58)
[2018-11-05] MEDS: Z GUARD REMEDY 2 OZ OINT TP SCH (09:47)
[2018-11-05] MEDS: METOPROLOL TARTRATE 25 MG TABLET PO SCH ×2 (09:47→21:33)
[2018-11-05] MEDS: CLOPIDOGREL BISULFATE 75 MG TABLET PO SCH (09:48)
[2018-11-05 16:00] VITALS: BP 110/58
[2018-11-05 20:21] VITALS: BP 121/84
[2018-11-05] MEDS: SENNOSIDES 8.6 MG TABLET PO SCH (21:32)
[2018-11-05] MEDS: ACETAMINOPHEN 325 MG TABLET PO PRN (22:22)
[2018-11-05] MEDS: TEMAZEPAM 7.5 MG CAPSULE PO PRN (22:22)
[2018-11-06] MEDS: NYSTATIN TOP POWDER 15 GM BOTTLE TP SCH ×2 (04:14→14:02)
[2018-11-06 08:00] VITALS: BP 141/65
[2018-11-06] MEDS: LOSARTAN POTASSIUM 25 MG TABLET PO SCH (10:10)
[2018-11-06] MEDS: CALCIUM CARBONATE (1250) 500 MG TABLET PO SCH (10:11)
[2018-11-06] MEDS: risperiDONE 1 MG TABLET PO SCH ×3 (10:11→17:08)
[2018-11-06] MEDS: BENZTROPINE MESYLATE (1 MG) 1 MG TABLET PO SCH ×3 (10:11→17:08)
[2018-11-06] MEDS: MULTIVITAMINS,THERAGRAN 1 UDTAB TABLET PO SCH (10:11)
[2018-11-06] MEDS: METOPROLOL TARTRATE 25 MG TABLET PO SCH ×2 (10:11→21:09)
[2018-11-06] MEDS: LORAZEPAM 0.5 MG TABLET PO PRN (10:11)
[2018-11-06] MEDS: AMLODIPINE BESYLATE 5 MG TABLET PO SCH (10:12)
[2018-11-06] MEDS: GABAPENTIN 100 MG CAPSULE PO SCH ×3 (10:12→17:08)
[2018-11-06] MEDS: CLOPIDOGREL BISULFATE 75 MG TABLET PO SCH (10:12)
[2018-11-06] MEDS: Z GUARD REMEDY 2 OZ OINT TP SCH (10:13)
[2018-11-06] MEDS: MAGNESIUM HYDROXIDE 30 ML UDC PO PRN (10:14)
--- NOTE | 2018-11-06 10:14 | NUR ---
rn notes administered Ativan 0.5 mg po prn and milk of magnesia 30 ml po per patient request, continued monitoring.
--- NOTE | 2018-11-06 13:30 | NUR ---
SW contacted patient's conservator/sister Pamela Joseph [phone] to inform her Psychiatrist has increased medication due to pts agitation and verbal aggressive behavior. Pamela agrees with medication increase.
[2018-11-06 16:00] VITALS: BP 144/74
[2018-11-06 20:28] VITALS: BP 134/78
[2018-11-06] MEDS: SENNOSIDES 8.6 MG TABLET PO SCH (21:10)
[2018-11-06] MEDS: TEMAZEPAM 7.5 MG CAPSULE PO PRN (23:51)
[2018-11-07] MEDS: NYSTATIN TOP POWDER 15 GM BOTTLE TP SCH ×2 (03:31→13:16)
[2018-11-07 08:00] VITALS: BP 124/57
--- NOTE | 2018-11-07 09:36 | NUR ---
INITIAL PT RESTING IN BED HOB ELEVATED OFFERED MEDICATIONS STARTING TALKING IN RAMBLING MANNER WANTS TO KNOW DOCTOR TAKING CARE OF HER WHEN NOTIFIED ANSWERED IN ILLOGICAL MANNER. MEDICATIONS OFFERED AND PT REFUSED STATING SHE HAS NO MONEY WHEN NOTIFIED THE MEDICATIONS WERE FREE SHE AGAIN RESPONDED IN ILLOGICAL ANSWER REFUSING MEDICATIONS PT C/O VARIOUS SOMATIC PAINS.
[2018-11-07] MEDS: GABAPENTIN 100 MG CAPSULE PO SCH ×3 (09:50→16:26)
[2018-11-07] MEDS: LORAZEPAM 0.5 MG TABLET PO SCH ×3 (09:51→16:12)
[2018-11-07] MEDS: CLOPIDOGREL BISULFATE 75 MG TABLET PO SCH (09:51)
[2018-11-07] MEDS: MULTIVITAMINS,THERAGRAN 1 UDTAB TABLET PO SCH (09:51)
[2018-11-07] MEDS: BENZTROPINE MESYLATE (1 MG) 1 MG TABLET PO SCH ×3 (09:51→16:12)
[2018-11-07] MEDS: CALCIUM CARBONATE (1250) 500 MG TABLET PO SCH (09:51)
[2018-11-07] MEDS: LOSARTAN POTASSIUM 25 MG TABLET PO SCH (09:51)
[2018-11-07] MEDS: METOPROLOL TARTRATE 25 MG TABLET PO SCH ×2 (09:52→21:39)
[2018-11-07] MEDS: AMLODIPINE BESYLATE 5 MG TABLET PO SCH (09:56)
[2018-11-07] MEDS: risperiDONE 1 MG TABLET PO SCH ×4 (09:56→21:39)
[2018-11-07] MEDS: Z GUARD REMEDY 2 OZ OINT TP SCH (09:58)
[2018-11-07 16:00] VITALS: BP 136/64
[2018-11-07 20:00] VITALS: BP 140/75
[2018-11-07] MEDS: SENNOSIDES 8.6 MG TABLET PO SCH (21:39)
[2018-11-07] MEDS: GABAPENTIN 300 MG CAPSULE PO SCH (21:45)
[2018-11-07] MEDS: TEMAZEPAM 7.5 MG CAPSULE PO PRN (23:28)
[2018-11-08] MEDS: NYSTATIN TOP POWDER 15 GM BOTTLE TP SCH ×2 (02:00→14:36)
[2018-11-08] MEDS: LORAZEPAM 0.5 MG TABLET PO PRN (04:15)
[2018-11-08 08:00] VITALS: BP 154/72
[2018-11-08] MEDS: risperiDONE 1 MG TABLET PO SCH ×4 (09:00→21:11)
[2018-11-08] MEDS: CALCIUM CARBONATE (1250) 500 MG TABLET PO SCH (09:00)
[2018-11-08] MEDS: LOSARTAN POTASSIUM 25 MG TABLET PO SCH (09:00)
[2018-11-08] MEDS: GABAPENTIN 100 MG CAPSULE PO SCH ×3 (09:00→17:49)
[2018-11-08] MEDS: MULTIVITAMINS,THERAGRAN 1 UDTAB TABLET PO SCH (09:00)
[2018-11-08] MEDS: CLOPIDOGREL BISULFATE 75 MG TABLET PO SCH (09:00)
[2018-11-08] MEDS: METOPROLOL TARTRATE 25 MG TABLET PO SCH ×2 (09:00→21:09)
[2018-11-08] MEDS: LORAZEPAM 0.5 MG TABLET PO SCH ×3 (09:00→17:49)
[2018-11-08] MEDS: BENZTROPINE MESYLATE (1 MG) 1 MG TABLET PO SCH ×4 (09:00→21:09)
[2018-11-08] MEDS: AMLODIPINE BESYLATE 5 MG TABLET PO SCH (09:00)
--- NOTE | 2018-11-08 09:30 | NUR ---
RN NOTES ATIVAN 0.5 MG PO WASTED, BUT NOT GET OPTION FOR WITNESS IN THE OMNICELL, PHARMACIST NATALLY NOTIFIED.
[2018-11-08] MEDS: HALOPERIDOL LACTATE INJ 5 MG/ML VIAL IM PRN (09:37)
[2018-11-08] MEDS: Z GUARD REMEDY 2 OZ OINT TP SCH (09:37)
--- NOTE | 2018-11-08 09:37 | NUR ---
RN NOTES PATIENT REFUSED ALL MEDICATION YELLING, SCREAMING, PARANOID, VERBALLY ABUSIVE. OFFERED MEDICATION X3, BUT PREFERRED TO GET SHUT. ADMINISTERED HALOPERIDOL LACTATE 2 ML/MG IM UPPER DELTOID AREA PER REFUSAL MEDICATION. CONTINUED MONITORING.
[2018-11-08 10:05] LABS: BASOPHILS # (AUTO) 0.1 /CMM (0.0-0.2); BASOPHILS % (AUTO) 0.7 % (0.0-2.0); EOSINOPHILS % (AUTO) 1.4 % (0.0-6.0); HEMATOCRIT 39 % (33-45); LYMPHOCYTES # (AUTO) 1.2 /CMM (0.8-4.8); LYMPHOCYTES % (AUTO) 15.8 % (20.0-44.0); MEAN CORPUSCULAR HGB CONC 33 g/dl (31.0-36.0); MEAN CORPUSCULAR VOLUME 85 fL (82-100); MONOCYTES # (AUTO) 0.6 /CMM (0.1-1.30); MONOCYTES % (AUTO) 7.5 % (2.0-12.0); NEUTROPHILS # (AUTO) 5.6 /CMM (1.8-8.9); NEUTROPHILS % (AUTO) 74.6 % (43.0-81.0); PLATELET COUNT (AUTO) 289 /CMM (150-450); RED BLOOD CELL COUNT(AUTO) 4.62 MIL/uL (4.0-5.2); WHITE BLOOD COUNT (AUTO) 7.5 K/uL (4.3-11.0)
[2018-11-08 10:27] LABS: ALBUMIN 3.2 g/dL (3.4-5.0); BILIRUBIN,TOTAL 0.5 mg/dL (0.2-1.0); CREATININE 0.8 mg/dL (0.6-1.3); MAGNESIUM 2.2 mg/dL (1.8-2.4); PHOSPHORUS 3.2 mg/dL (2.5-4.9); POTASSIUM 3.9 mmol/L (3.5-5.1); TOTAL PROTEIN, SERUM 7.9 g/dL (6.4-8.2)
[2018-11-08 16:00] VITALS: BP 148/84
[2018-11-08 20:00] VITALS: BP 119/70
[2018-11-08] MEDS: SENNOSIDES 8.6 MG TABLET PO SCH (21:11)
[2018-11-08] MEDS: GABAPENTIN 300 MG CAPSULE PO SCH (21:44)
[2018-11-09] MEDS: NYSTATIN TOP POWDER 15 GM BOTTLE TP SCH ×3 (02:00→13:15)
--- NOTE | 2018-11-09 04:27 | NUR ---
NYSTATIN POWDER ADMINISTERED @0425, PATIENT ASLEEP AROUND 0200.
[2018-11-09 08:00] VITALS: BP 156/79
[2018-11-09] MEDS: Z GUARD REMEDY 2 OZ OINT TP SCH (09:00)
[2018-11-09] MEDS: GABAPENTIN 100 MG CAPSULE PO SCH ×3 (09:47→17:06)
[2018-11-09] MEDS: CALCIUM CARBONATE (1250) 500 MG TABLET PO SCH (09:48)
[2018-11-09] MEDS: LOSARTAN POTASSIUM 25 MG TABLET PO SCH (09:49)
[2018-11-09] MEDS: AMLODIPINE BESYLATE 5 MG TABLET PO SCH (09:49)
[2018-11-09] MEDS: CLOPIDOGREL BISULFATE 75 MG TABLET PO SCH (09:50)
[2018-11-09] MEDS: BENZTROPINE MESYLATE (1 MG) 1 MG TABLET PO SCH ×4 (09:50→21:47)
[2018-11-09] MEDS: risperiDONE 1 MG TABLET PO SCH ×3 (09:50→17:06)
[2018-11-09] MEDS: MULTIVITAMINS,THERAGRAN 1 UDTAB TABLET PO SCH (09:50)
[2018-11-09] MEDS: METOPROLOL TARTRATE 25 MG TABLET PO SCH ×2 (09:51→21:48)
[2018-11-09] MEDS: LORAZEPAM 0.5 MG TABLET PO SCH ×3 (10:33→17:06)
[2018-11-09 16:00] VITALS: BP 141/95
[2018-11-09 20:09] VITALS: BP 110/58
[2018-11-09] MEDS: GABAPENTIN 300 MG CAPSULE PO SCH (21:47)
[2018-11-09] MEDS: SENNOSIDES 8.6 MG TABLET PO SCH (21:47)
[2018-11-09] MEDS ORDERED: risperiDONE 1 MG TABLET PO SCH (22:00)
[2018-11-10] MEDS: NYSTATIN TOP POWDER 15 GM BOTTLE TP SCH (02:00)
[2018-11-10 08:00] VITALS: BP 152/77
[2018-11-10] MEDS: CLOPIDOGREL BISULFATE 75 MG TABLET PO SCH (08:27)
[2018-11-10] MEDS: GABAPENTIN 100 MG CAPSULE PO SCH (08:27)
[2018-11-10] MEDS: BENZTROPINE MESYLATE (1 MG) 1 MG TABLET PO SCH (08:27)
[2018-11-10] MEDS: LOSARTAN POTASSIUM 25 MG TABLET PO SCH (08:27)
[2018-11-10] MEDS: LORAZEPAM 0.5 MG TABLET PO SCH (08:27)
[2018-11-10] MEDS: CALCIUM CARBONATE (1250) 500 MG TABLET PO SCH (08:27)
[2018-11-10 08:28] VITALS: BP 152/77
[2018-11-10] MEDS: METOPROLOL TARTRATE 25 MG TABLET PO SCH (08:28)
[2018-11-10] MEDS: MULTIVITAMINS,THERAGRAN 1 UDTAB TABLET PO SCH (08:28)
[2018-11-10] MEDS: AMLODIPINE BESYLATE 5 MG TABLET PO SCH (08:28)
[2018-11-10] MEDS: risperiDONE 1 MG TABLET PO SCH (08:28)
[2018-11-10] MEDS: Z GUARD REMEDY 2 OZ OINT TP SCH (08:33)
--- NOTE | 2018-11-10 10:42 | NUR ---
DR. FIGUEROA GAVE AN ORDER TO D/C TO [facility] AND [facility], TO FOLLOW UP WITH PSYCH AND MEDICAL DOCTORS AND SHE RECONCILED THE MEDS TO CONTINUE AT THE FACILITY.
--- NOTE | 2018-11-10 12:12 | NUR ---
GPS/RN-NOTES PATIENT WAS DISCHARGE TO [facility] TODAY . DR. COOK AND MAINE SNYDER MADE AWARE AND AGREES OF PATIENT DISCHARGE WITH ORDERS. REPORT WAS GIVEN TO DANILO( LEATHER BELT SHAPER). PATIENT DID NOT VERBALIZE SI/HI,DENIES VISUAL/AUDITORY HALLUCINATIONS AT THE TIME OF DISCHARGE . PATIENT WAS DIGITAL ACCOUNT DIRECTOR BY AMBULANCE VIA GURNEY WITH TWO STAFF ASSIST. PATIENT LEFT THE UNIT IN STABLE CONDITION AWAKE,ALERT,NO ACUTE DISTRESS NOTED WITH ALL BELONGINGS. PER PATIENT CONSERVATOR WAS AWARE OF THE DISCHARGE. Addendum: 11/10/18 at 1325 by KAVITHA WATERS RN IN ADDITION TO MY ABOVE NOTES EARLIER PATIENT STRONGLY REFUSED FULL BODY ASSESSMENT DESPITE EXPLANATIONS OF THE HOSPITAL POLICIES. Addendum: 11/10/18 at 1450 by KAVITHA WATERS RN CORRECTION ON THE DISCHARGE PSYCHIATRIST. IT WAS DISCHARGE BY DR. FIGUEROA.
--- NOTE | 2018-11-10 12:37 | NUR ---
DISCHARGE NOTE: Pt was discharged at 12:00pm via [facility] ambulance trip#[id number] to [facility] ([facility]) Address: [address] [place] [place] [address] . Pts sister Nicki [phone] has been notified and agreed with discharge plan. Pts mood was euthymic with congruent affect. Pt denied suicidal/homicidal ideations and denied visual/auditory hallucinations. For smoking cessation, patient was referred to the [employer] and [employer] [id number]. Pt will also participate in a telephone meeting with [employer] [phone] on Tuesday, November 11, 2018 at 8:00am. Pt will be under the care of Psychiatrist: Dr. Irma Duran [facility] [address] [address] [phone] and Elevator Repairer: Dr. Eva Casey Address: [address] [place] [id number] Phone: . The multidisciplinary exitcare form was done, printed, signed, and given to the patient.
== END 2018-11-10 12:15 | DRG 885 ==
LOC: GPS 13:28
PROVIDERS: ADMIT Psychiatry & Neurology Psychiatry; ATTEND Psychiatry & Neurology Psychosomatic Medicine
DX: F29 Unspecified psychosis not due to a substance or known physiological condition (principal); G93.41 Metabolic encephalopathy; E87.1 Hypo-osmolality and hyponatremia; D68.59 Other primary thrombophilia; F39 Unspecified mood [affective] disorder; E83.42 Hypomagnesemia; F20.9 Schizophrenia, unspecified; E78.5 Hyperlipidemia, unspecified; E83.51 Hypocalcemia; E88.09 Other disorders of plasma-protein metabolism, not elsewhere classified; F03.90 Unspecified dementia, unspecified severity, without behavioral disturbance, psychotic disturbance, mood disturbance, and anxiety; I10 Essential (primary) hypertension; L30.4 Erythema intertrigo; Z68.38 Body mass index [BMI] 38.0-38.9, adult; E66.01 Morbid (severe) obesity due to excess calories; Z96.641 Presence of right artificial hip joint; M62.50 Muscle wasting and atrophy, not elsewhere classified, unspecified site; B36.9 Superficial mycosis, unspecified
CPT/HCPCS: 36415; 80053-TC; 83735-TC; 84100-TC; 85025-TC; J1630

== ENCOUNTER 2020-04-04 13:26 | Inpatient (IN) | payer MEDICARE, OTHER ==
[~2020-04-04] VITALS: Ht 167.6 cm; Wt 117.0 kg
[~2020-04-04 13:26] MED LIST changes: -BENZ0.5T43 PO; +BISA10SU11 RC; -BISA10SU8 RC; -RISP0.253 PO; -SENN-168 PO; +SENN-261 PO
[2020-04-04] MEDS ORDERED: TOPI100T PO (13:57)
[2020-04-04] MEDS ORDERED: SODI1TAB66 PO (13:57)
[2020-04-04] MEDS ORDERED: CRAN450C PO (13:57)
[2020-04-04] MEDS ORDERED: LORA-259 PO (13:57)
[2020-04-04] MEDS ORDERED: BENZ0.5T43 PO (13:57)
[2020-04-04] MEDS ORDERED: RISP0.2515 PO (13:57)
--- NOTE | 2020-04-04 14:03 | NUR ---
bib ra frm snf c/o tachycardia and fever 103.5. On 02 @ 2lpm via NC. connected to the monitor and pulse ox. kept comfortable, will continue to monitor accordingly.
--- NOTE | 2020-04-04 14:04 | NUR ---
urine collected and sent to lab. Covid 19 swab collected and sent to lab
[2020-04-04 14:13] LABS: BASOPHILS % (AUTO) 0.3 % (0.0-2.0); HEMATOCRIT 38 % (33-45); HEMOGLOBIN 11.9 g/dL (11.5-14.8); LYMPHOCYTES # (AUTO) 0.4 /CMM (0.8-4.8); LYMPHOCYTES % (AUTO) 4.8 % (20.0-44.0); MEAN CORPUSCULAR HGB CONC 32 g/dl (31.0-36.0); MEAN CORPUSCULAR VOLUME 84 fL (82-100); MONOCYTES # (AUTO) 0.7 /CMM (0.1-1.30); MONOCYTES % (AUTO) 8.8 % (2.0-12.0); NEUTROPHILS # (AUTO) 6.6 /CMM (1.8-8.9); NEUTROPHILS % (AUTO) 86.1 % (43.0-81.0); PLATELET COUNT (AUTO) 115 /CMM (150-450); RED BLOOD CELL COUNT(AUTO) 4.51 MIL/uL (4.0-5.2); WHITE BLOOD COUNT (AUTO) 7.7 K/uL (4.3-11.0)
[2020-04-04 14:19] LABS: CALCIUM, SERUM 8.2 mg/dL (8.5-10.1); CARBON DIOXIDE 21 mmol/L (21-32); CHLORIDE 94 mmol/L (98-107); CREATININE 0.9 mg/dL (0.6-1.3); GLUCOSE 167 mg/dL (74-106); POTASSIUM 4.3 mmol/L (3.5-5.1); SODIUM SERUM 125 mmol/L (136-145); UREA NITROGEN, BLOOD 24 mg/dL (7-18)
[2020-04-04 14:28] LABS: APPEARANCE,URINE Slightly Cloudy (CLEAR); BILIRUBIN,URINE SMALL (NEGATIVE); BLOOD, URINE Negative Ery/uL (NEGATIVE); KETONES,URINE Negative (NEGATIVE); LEUKOCYTE ESTERASE ,URINE Negative (NEGATIVE); NITRITE, URINE Negative (NEGATIVE); PROTEIN,URINE 100 mg/dl (NEGATIVE); UGLUCOSE Negative (NEGATIVE)
[2020-04-04 14:29] LABS: COLOR,URINE DARK YELLOW (YELLOW)
[2020-04-04 14:32] LABS: ALANINE AMINOTRANSFERASE 17 U/L (12-78); ALKALINE PHOSPHATASE 47 U/L (46-116); ASPARTATE AMINOTRANSFERASE 43 U/L (15-37); B-TYPE NATRIURETIC PEPTIDE 2575 PG/ML (0-125)
[2020-04-04 14:33] LABS: RBC,URINE 0-2 /HPF (0-2)
[2020-04-04 14:34] LABS: BACTERIA,URINE Few /HPF (None Seen)
[2020-04-04 14:35] LABS: SQUAMOUS EPITHELIAL CELL,UR Many /HPF (None Seen)
[2020-04-04] MEDS ORDERED: METOPROLOL TARTRATE INJ 5 MG/5 ML AMPUL ONE (14:48)
[2020-04-04] MEDS ORDERED: LEVOFLOXACIN 750 MG /D5W 150ML 150 ML IV ONE (15:29)
[2020-04-04] MEDS ORDERED: LEVOFLOXACIN 750 MG /D5W 150ML PIGGYBACK IV ONE (15:30)
[2020-04-04 15:38] LABS: D-DIMER 0.74 mg/L(FEU (0.17-0.50)
[2020-04-04 15:42] LABS: CREATINE KINASE, TOTAL 284 U/L (26-192); FERRITIN 226 ng/mL (8-388)
[2020-04-04 16:01] LABS: C-REACTIVE PROTEIN 20.4 mg/dL (0.0-0.9)
[2020-04-04] MEDS: METOPROLOL TARTRATE INJ 5 MG/5 ML AMPUL IVP PRN (16:18)
[2020-04-04 16:40] LABS: ABG BASE EXCESS -2.5 mmol/L; ABG OXYGEN SATURATION 97.2 % (92.0-98.5); ABG PCO2 46.4 mmHg (35.0-45.0); ABG PH 7.326 (7.350-7.450); ABG PO2 103.6 mmHg (75.0-100.0); AaDO2 99.3 mmHg; MetHb 0.3 % (0.0-1.5); O2Hb 95.9 % (94.0-97.0); SITE, ABG Right Radial; VENT MODE, BG 4L NASAL CANULA
--- NOTE | 2020-04-04 16:55 | NUR ---
wheeled patient via gurney accompanied by RN and emt in no distress. RN at bedside to assume care.
[2020-04-04 17:00] VITALS: BP 117/76
--- NOTE | 2020-04-04 17:00 | NUR ---
MELON PACKER OPENING NOTES RECEIVED PATIENT FROM E.R. IN BED, AWAKE, CONFUSED, 02 @ 4LPM VIA NASAL CANNULA, UNLABORED BREATHING, SIDE RAILS UP.
[2020-04-04] MEDS ORDERED: ZOLPIDEM TARTRATE 5 MG TABLET PO PRN (18:00)
[2020-04-04] MEDS ORDERED: ONDANSETRON HCL/PF 4 MG/2 ML VIAL IVP PRN (18:00)
[2020-04-04] MEDS ORDERED: HYDROCODONE/APAP 5/325MG 1 EACH TABLET PO PRN (18:00)
[2020-04-04] MEDS ORDERED: risperiDONE 0.25 MG TABLET PO SCH (18:30)
[2020-04-04] MEDS: LORAZEPAM 1 MG TABLET PO SCH (18:50)
[2020-04-04] MEDS: ERGOCALCIFEROL (VITAMIN D 2) 50,000 UNIT CAPSULE PO SCH (18:50)
[2020-04-04] MEDS: TOPIRAMATE 100 MG TABLET PO SCH (18:51)
--- NOTE | 2020-04-04 19:28 | NUR ---
HYDROELECTRIC STATION OPERATOR CHIEF CLOSING NOTES ENDORSED PATIENT TO BELLMAN NURSE IN BED, AWAKE, CONFUSED, 02 @ 4LPM VIA NASAL CANNULA, UNLABORED BREATHING, NOS SIGNS OF RESPIRATORY DISTRESS, SIDE RAILS UP FOR SAFETY.
[2020-04-04 20:00] VITALS: BP 141/78
--- NOTE | 2020-04-04 20:00 | NUR ---
supervisor telephone clerks notes RECEIVED PTS IN BED AWAKE AND RESPONSIVE WITH PERIOD OF CONFUSION, ON TELE UNCONTROLLED AFIB 105, NO SOB NO DISTRESS NOTED NOTED ON 2LITERS OF 02 VIA NC [id number]% V/S STABLE AFEBRILE ALL DUE MEDS GIVEN ORDERED ALL NEEDS ATTENDED TOO ,CALL LIGHT WITH IN REACH ,WITH RIGHT HAND g#22 INTACT AND PATENT , HOB ELEVATED AT ALL TIMES FOR ASPIRATION PRECAUTION ,PTS IS PENDING COVID PRECAUTIONARY MEASURES OBSERVED AT ALL TIMES ,TURNED AND REPOSITION . KEPT PTS CLEAN DRY AND COMFORTABLE WILL CONTINUE TO MONITOR PTS.
[2020-04-04] MEDS: METOPROLOL TARTRATE 25 MG TABLET PO SCH (20:58)
[2020-04-04] MEDS: BENZTROPINE MESYLATE (1 MG) 1 MG TABLET PO SCH (20:58)
[2020-04-04] MEDS: SENNOSIDES 8.6 MG TABLET PO SCH (22:34)
[2020-04-05] VITALS: BP 123/85
--- NOTE | 2020-04-05 | NUR ---
radio television announcer notes Hr 140 Lopressor 5mg iv given prn for >110 as ordered
[2020-04-05] MEDS: METOPROLOL TARTRATE INJ 5 MG/5 ML AMPUL IVP PRN ×2 (01:06→02:35)
--- NOTE | 2020-04-05 01:36 | NUR ---
TEACHER OF THE VISUALLY IMPAIRED NOTES PTS C/O SHE CANT SLEEP ,AMBIEN 5MG VIA PO GIVEN ORDERED.
--- NOTE | 2020-04-05 02:36 | NUR ---
telephony engineer notes Hr 0f 160 ,Lopressor 5mg iv given as prn as ordered.
[2020-04-05 04:00] VITALS: BP 132/95
--- NOTE | 2020-04-05 04:00 | NUR ---
TRAFFIC CONTROL FLAGGER NOTES PTS STILL NOTED UNCONTROLLED AFIB HR 150-160 SATING 96% ON O2 AT 2LITERS VIA NC . V/S RELAYED TO MANAGER GRANT ERWIN EISENBERG WITH ORDER AMIODARONE 150 MG BOLUS AND DRIP PER PROTOCOL , CALLED MANAGER GRANT PHARMACIST FROM [place] WILL VERIFY THE ORDER. Addendum: 04/05/20 at 0441 by GUERITA BERUMEN RN PTS ON 4LITERS OF 02 NOT 2LITERS
--- NOTE | 2020-04-05 04:05 | NUR ---
AL RN NOTES SPOKE TO ON SANA KEMP TO TRANSFER TO AL STATUS.
[2020-04-05] MEDS ORDERED: AMIODARONE 150 MG in IV D5W 100 ML IV ONE (04:30)
[2020-04-05] MEDS ORDERED: AMIODARONE 150 MG/3 ML VIAL IV ONE (04:39)
--- NOTE | 2020-04-05 04:39 | NUR ---
AL RN NOTES AMIODARONE BOLUS (150mg ) given as order with no ase noted .HR-150 at this time.
[2020-04-05] MEDS: AMIODARONE 450 MG in IV D5W 250 ML IV PRN ×2 (05:22→13:02)
--- NOTE | 2020-04-05 05:22 | NUR ---
marielle rn notes amiodarone drip started per protocol ,amiodarone 1mg /33.3 ml /hr x 6hrs due at 1122hrs then 0.5 mg x 18 hrs.
[2020-04-05] MEDS: ACETAMINOPHEN 325 MG TABLET PO PRN (05:26)
--- NOTE | 2020-04-05 06:32 | NUR ---
marielle rn notes pts continue on amiodarone drip as ordered , pts in bed with v/s stable afbrile , on 4 liters of 02 via nc , pts noted with lung sound wheezing all needs attended too hr 110-130 still uncontrolled afib , will endorsed to rn day shift for continuity of care.
--- NOTE | 2020-04-05 07:28 | NUR ---
RN OPENING NOTES RECEIVED PATIENT SLEEPING IN BED COMFORTABLY, EASILY AROUSED. PT IS AOX1-2, WITH CONFUSION, VERBAL, AND ON BED REST. SHE IS ON 4L OF OXYGEN VIA NC, TOLERATING WELL, NO SOB OR RESP DISTRESS. TELE MONITOR SHOWING UNCONTROLLED A FIB WITH HR AT 116. PT IS ON AMIO DRIP @ 1 MG/MIN, WILL TITRATE DOWN PER PROTOCOL. MULTIPLE RASHES PRESENT, WOUND CONSULT PENDING. IV SITE ON R HAND 22 G AND L HAND 22 G IS PATENT AND INTACT. SAFETY MEASURES HAVE BEEN IMPLEMENTED, CALL LIGHT IS WITHIN REACH, BED IS IN LOWEST AND LOCKED POSITION, SIDE RAILS UP X2, WILL CONTINUE TO MONITOR FOR ANY CHANGES.
[2020-04-05 08:00] VITALS: BP 98/65
[2020-04-05] MEDS: CLOPIDOGREL BISULFATE 75 MG TABLET PO SCH (08:16)
[2020-04-05] MEDS: CALCIUM CARBONATE (1250) 500 MG TABLET PO SCH (08:16)
[2020-04-05 08:18] LABS: BASOPHILS % (AUTO) 0.1 % (0.0-2.0); HEMATOCRIT 36 % (33-45); HEMOGLOBIN 11.6 g/dL (11.5-14.8); LYMPHOCYTES # (AUTO) 0.3 /CMM (0.8-4.8); LYMPHOCYTES % (AUTO) 3.8 % (20.0-44.0); MEAN CORPUSCULAR HGB CONC 32 g/dl (31.0-36.0); MEAN CORPUSCULAR VOLUME 83 fL (82-100); MONOCYTES # (AUTO) 0.6 /CMM (0.1-1.30); MONOCYTES % (AUTO) 6.3 % (2.0-12.0); NEUTROPHILS # (AUTO) 8.2 /CMM (1.8-8.9); NEUTROPHILS % (AUTO) 89.8 % (43.0-81.0); PLATELET COUNT (AUTO) 121 /CMM (150-450); RED BLOOD CELL COUNT(AUTO) 4.37 MIL/uL (4.0-5.2); WHITE BLOOD COUNT (AUTO) 9.1 K/uL (4.3-11.0)
[2020-04-05] MEDS: METOPROLOL TARTRATE 25 MG TABLET PO SCH ×2 (08:18→21:32)
[2020-04-05] MEDS: MULTIVITAMINS,THERAGRAN 1 UDTAB TABLET PO SCH (08:19)
[2020-04-05] MEDS: LORAZEPAM 1 MG TABLET PO SCH ×2 (08:20→17:40)
[2020-04-05] MEDS: TOPIRAMATE 100 MG TABLET PO SCH ×2 (08:20→17:37)
[2020-04-05] MEDS: BENZTROPINE MESYLATE (1 MG) 1 MG TABLET PO SCH ×4 (08:20→21:31)
[2020-04-05 09:05] LABS: CALCIUM, SERUM 7.7 mg/dL (8.5-10.1); CREATININE 0.9 mg/dL (0.6-1.3); MAGNESIUM 2.3 mg/dL (1.8-2.4); PHOSPHORUS 3.2 mg/dL (2.5-4.9); POTASSIUM 4.3 mmol/L (3.5-5.1)
[2020-04-05] MEDS: RIVAROXABAN 10 MG TABLET PO SCH (10:10)
[2020-04-05 12:00] VITALS: BP 100/63
[2020-04-05 16:00] VITALS: BP 110/65
[2020-04-05] MEDS: risperiDONE 1 MG TABLET PO SCH (17:41)
--- NOTE | 2020-04-05 18:53 | NUR ---
RN CLOSING NOTES PATIENT IS RESTING IN BED COMFORTABLY, NO S/SX OF DISTRESS. PT IS ON 4L OF OXYGEN VIA NC, TOLERATING WELL. COVID ISO HAS BEEN IMPLEMENTED AND ENFORCED. PT NEEDS HAVE BEEN MET, VITAL SIGNS ARE STABLE, NO ACUTE CHANGES OCCURRED THROUGHOUT THE SHIFT. SAFETY MEASURES HAVE BEEN IMPLEMENTED, CALL LIGHT IS WITHIN REACH, BED IS IN LOWEST AND LOCKED POSITION, SIDE RAILS UP X2, PT WILL BE ENDORSED TO NIGHTSHIFT RN FOR RICHARD.
[2020-04-05 20:00] VITALS: BP 117/71
[2020-04-05] MEDS: SENNOSIDES 8.6 MG TABLET PO SCH (21:31)
[2020-04-06] VITALS: BP 114/69
[2020-04-06 04:00] VITALS: BP 137/92
[2020-04-06] MEDS: ACETAMINOPHEN 325 MG TABLET PO PRN (04:30)
--- NOTE | 2020-04-06 05:28 | NUR ---
RN notes In bed sleeeping with no distress noted, breathing even and unlabored. On 4lpm O2 via nasal cannula, tolerating well. Alert with confusion. Able to verbally communicate needs. No complaint of pain as of this time. Temp is a slightly elevated at 99.6, noted with chills and compaining of cold. Gave tylenol with help. Lab call at about 05:30 confirming positive serology result for covid. Called MD, no answer will endorse to next shift.
[2020-04-06 07:31] LABS: BASOPHILS % (AUTO) 0.2 % (0.0-2.0); EOSINOPHILS % (AUTO) 0.1 % (0.0-6.0); HEMATOCRIT 41 % (33-45); HEMOGLOBIN 12.4 g/dL (11.5-14.8); LYMPHOCYTES # (AUTO) 0.5 /CMM (0.8-4.8); LYMPHOCYTES % (AUTO) 7.2 % (20.0-44.0); MEAN CORPUSCULAR HGB CONC 30 g/dl (31.0-36.0); MEAN CORPUSCULAR VOLUME 87 fL (82-100); MONOCYTES # (AUTO) 0.7 /CMM (0.1-1.30); MONOCYTES % (AUTO) 11.1 % (2.0-12.0); NEUTROPHILS # (AUTO) 5.3 /CMM (1.8-8.9); NEUTROPHILS % (AUTO) 81.4 % (43.0-81.0); PLATELET COUNT (AUTO) 123 /CMM (150-450); RED BLOOD CELL COUNT(AUTO) 4.69 MIL/uL (4.0-5.2); WHITE BLOOD COUNT (AUTO) 6.5 K/uL (4.3-11.0)
[2020-04-06 07:46] LABS: CREATININE 0.8 mg/dL (0.6-1.3); MAGNESIUM 2.4 mg/dL (1.8-2.4); PHOSPHORUS 3.5 mg/dL (2.5-4.9); POTASSIUM 4.6 mmol/L (3.5-5.1)
[2020-04-06 08:00] VITALS: BP 116/80
--- NOTE | 2020-04-06 08:00 | NUR ---
AL RN NOTE PATIENT IN BED AWAKE ,ALERT WITH CONFUSION ,ON 4L NC OF O2 NO SOB NOTED LT HAND HL INTACT FLASHED WELL , BED IN LOWEST AND LOCKED POSITION, ON TELE MONITOR AFIB HR 118 , FED BY EVENT ATTENDANT ABLE TO EAT 75% , WILL CONT TO MONITOR ,PLAN OF CAR DISCUSSED WITH PATIENT
[2020-04-06] MEDS: MULTIVITAMINS,THERAGRAN 1 UDTAB TABLET PO SCH (08:39)
[2020-04-06] MEDS: CLOPIDOGREL BISULFATE 75 MG TABLET PO SCH (08:39)
[2020-04-06] MEDS: LORAZEPAM 1 MG TABLET PO SCH ×2 (08:42→16:12)
[2020-04-06] MEDS: CALCIUM CARBONATE (1250) 500 MG TABLET PO SCH (08:43)
[2020-04-06] MEDS: METOPROLOL TARTRATE 25 MG TABLET PO SCH ×2 (08:43→21:29)
[2020-04-06] MEDS: risperiDONE 1 MG TABLET PO SCH ×2 (08:52→16:09)
[2020-04-06] MEDS: TOPIRAMATE 100 MG TABLET PO SCH ×2 (08:52→16:11)
[2020-04-06] MEDS: BENZTROPINE MESYLATE (1 MG) 1 MG TABLET PO SCH ×4 (08:53→21:30)
--- NOTE | 2020-04-06 09:53 | NUR ---
DRIVER COURIER NOTE DR CARVALHO MEDICAL REFERRAL COORDINATOR AT BEDSIDE ,AWARE NA 126 WITH ORDER TO COLLECT URINE SPECIMEN. WILL F\U
--- NOTE | 2020-04-06 10:16 | NUR ---
AL RN NOTE DR JASMINE AWARE THAT AMIODARONE DRIP COMPLETED ORDERED AMIODARONE PO. WILL F\U
[2020-04-06] MEDS: AMIODARONE HCL 200 MG TABLET PO SCH ×2 (11:04→16:09)
--- NOTE | 2020-04-06 11:19 | NUR ---
AL RN NOTES URINE CULTURE WAS TAKEN BY RN
[2020-04-06 12:00] VITALS: BP 152/82
[2020-04-06 12:31] LABS: ALBUMIN 2.7 g/dL (3.4-5.0); BILIRUBIN,DIRECT 0.6 mg/dL (0.0-0.2); BILIRUBIN,TOTAL 1.1 mg/dL (0.2-1.0); TOTAL PROTEIN, SERUM 7.1 g/dL (6.4-8.2)
--- NOTE | 2020-04-06 13:48 | NUR ---
AL HEALTH ACTUARY NOTES PT HAS LOW SODIUM [address] DEWITT IS AWARE
[2020-04-06 14:46] LABS: URINE SODIUM, RANDOM < 5 mmol/l (40-220)
--- NOTE | 2020-04-06 15:19 | NUR ---
AL RN NOTE DR JASMINE NOTIFIED THAT HR AFIB 145-156 STATED THAT WLL CHECK IT OUT, NO NEW ORDER GIVEN AT THIS TIME WILL CONT TO MONITOR
[2020-04-06 16:00] VITALS: BP 121/77
[2020-04-06] MEDS: RIVAROXABAN 10 MG TABLET PO SCH (16:10)
[2020-04-06] MEDS: SODIUM CHLORIDE 1000 MG TABLET PO SCH (16:15)
[2020-04-06 17:12] LABS: OSMOLALITY,URINE 631 mOS/kg (340-1090)
--- NOTE | 2020-04-06 18:20 | NUR ---
SOLUTION DIRECTOR NOTE ALL NEEDS ATTENDED ,HAVING DINNER , KEEP CLEAN,ON TELEMONIOTR ST 150 DR JASMINE IS AWARE , NO C\O CHEST PAIN , WILL CONT TO MONITOR
[2020-04-06 20:00] VITALS: BP 105/62
[2020-04-06] MEDS: SENNOSIDES 8.6 MG TABLET PO SCH (23:02)
[2020-04-07] VITALS: BP 122/88
--- NOTE | 2020-04-07 04:09 | NUR ---
RN notes In bed resting comfortably with occasional aggitation and shouting. Most of the time forgets what she is about to say. No complaint of pain or discomfort. Heart rate remains tachycardic in 150's, goes down to 100's. needs attended. Alert with confusion, covid positive. Needs attended. Kept clean and dry. Will endorse to next shift for continuity of care.
[2020-04-07 06:52] LABS: CALCIUM, SERUM 8.1 mg/dL (8.5-10.1); CREATININE 0.8 mg/dL (0.6-1.3); MAGNESIUM 2.2 mg/dL (1.8-2.4); PHOSPHORUS 2.7 mg/dL (2.5-4.9); POTASSIUM 4.5 mmol/L (3.5-5.1)
[2020-04-07 06:55] LABS: THYROID STIMULATING HORMONE 0.593 uIU/mL (0.358-3.74); URIC ACID 3.8 mg/dL (2.6-7.2)
[2020-04-07 07:04] LABS: C-REACTIVE PROTEIN 12.1 mg/dL (0.0-0.9)
--- NOTE | 2020-04-07 07:05 | NUR ---
RN NOTES RECEIVED PT ON BED, ALERT/ CONFUSED, ON 3L 02 N/C , O2 SAT WNL, NO SOB NOTED, ON TELE A.FIB, HR IN 130'S .LEFT HAND IV SITE G 22 CLEAN, DRY AND INTACT, SR UP x3, CALL LIGHT WITHIN EASY REACH, BED LOCKED AND IN LOWEST POSITION, CONTINUE TO MONITOR .
[2020-04-07 08:00] VITALS: BP 126/88
[2020-04-07] MEDS: TOPIRAMATE 100 MG TABLET PO SCH ×2 (08:45→16:28)
[2020-04-07] MEDS: MULTIVITAMINS,THERAGRAN 1 UDTAB TABLET PO SCH (08:45)
[2020-04-07] MEDS: LORAZEPAM 1 MG TABLET PO SCH ×2 (08:45→18:19)
[2020-04-07] MEDS: CLOPIDOGREL BISULFATE 75 MG TABLET PO SCH (08:45)
[2020-04-07] MEDS: AMIODARONE HCL 200 MG TABLET PO SCH ×3 (08:45→16:28)
[2020-04-07] MEDS: risperiDONE 1 MG TABLET PO SCH ×2 (08:45→16:27)
[2020-04-07] MEDS: BENZTROPINE MESYLATE (1 MG) 1 MG TABLET PO SCH ×4 (08:45→21:14)
[2020-04-07] MEDS: SODIUM CHLORIDE 1000 MG TABLET PO SCH (08:46)
[2020-04-07] MEDS: METOPROLOL TARTRATE 25 MG TABLET PO SCH ×4 (08:46→23:56)
[2020-04-07] MEDS: CALCIUM CARBONATE (1250) 500 MG TABLET PO SCH (08:46)
[2020-04-07] MEDS: ACETAMINOPHEN 325 MG TABLET PO PRN (09:01)
[2020-04-07 09:37] LABS: BASOPHILS % (AUTO) 0.4 % (0.0-2.0); EOSINOPHILS % (AUTO) 0.1 % (0.0-6.0); HEMATOCRIT 39 % (33-45); HEMOGLOBIN 12.5 g/dL (11.5-14.8); LYMPHOCYTES # (AUTO) 0.5 /CMM (0.8-4.8); LYMPHOCYTES % (AUTO) 7.4 % (20.0-44.0); MEAN CORPUSCULAR HGB CONC 32 g/dl (31.0-36.0); MEAN CORPUSCULAR VOLUME 83 fL (82-100); MONOCYTES # (AUTO) 0.9 /CMM (0.1-1.30); MONOCYTES % (AUTO) 12.3 % (2.0-12.0); NEUTROPHILS # (AUTO) 5.7 /CMM (1.8-8.9); NEUTROPHILS % (AUTO) 79.8 % (43.0-81.0); PLATELET COUNT (AUTO) 199 /CMM (150-450); RED BLOOD CELL COUNT(AUTO) 4.73 MIL/uL (4.0-5.2); WHITE BLOOD COUNT (AUTO) 7.1 K/uL (4.3-11.0)
--- NOTE | 2020-04-07 11:00 | NUR ---
RN NOTES URINE SAMPLE SENT TO LAB PER SUPERVISOR [employer] ORDER .
[2020-04-07] MEDS: DIGOXIN INJ 0.5 MG/2 ML AMPUL IV SCH ×3 (11:20→23:55)
[2020-04-07 12:00] VITALS: BP_SYST 117; BP_SYST 120; BP_DIAS 59; BP_DIAS 60
--- NOTE | 2020-04-07 14:00 | NUR ---
RN NOTES PT STABLE, CONTINUE TO MONITOR .
[2020-04-07] MEDS: Z GUARD REMEDY 2 OZ OINT TP SCH (14:26)
[2020-04-07 16:00] VITALS: BP 117/79
[2020-04-07] MEDS: RIVAROXABAN 10 MG TABLET PO SCH (16:29)
[2020-04-07 17:12] LABS: APPEARANCE,URINE CLOUDY (CLEAR); BILIRUBIN,URINE SMALL (NEGATIVE); BLOOD, URINE TRACE-INTA Ery/uL (NEGATIVE); COLOR,URINE YELLOW (YELLOW); KETONES,URINE TRACE (NEGATIVE); LEUKOCYTE ESTERASE ,URINE NEGATIVE (NEGATIVE); NITRITE, URINE POSITIVE (NEGATIVE); PROTEIN,URINE TRACE mg/dl (NEGATIVE); UGLUCOSE NEGATIVE (NEGATIVE)
[2020-04-07 17:49] LABS: BACTERIA,URINE Rare /HPF (None Seen); RBC,URINE 0-2 /HPF (0-2); WBC,URINE 0-2 /HPF (0-3)
[2020-04-07 17:50] LABS: SQUAMOUS EPITHELIAL CELL,UR 0-2 /HPF (None Seen); URINE AMORPHOUS URATE Moderate /HPF (None Seen)
--- NOTE | 2020-04-07 18:20 | NUR ---
RN NOTES PT STABLE , HR IN 110'S, A.FIB, NO SIGNIFICANT CHANGES NOTED ON THIS SHIFT, SR UP x3, CALL LIGHT WITHIN EASY REACH, WILL ENDOSE TO CEO [place] NURSE FOR CONTINUITY OF CARE .
[2020-04-07 20:00] VITALS: BP 111/74
--- NOTE | 2020-04-07 20:16 | NUR ---
RN NOTE NOTED WITH TEMP OF 101.5. CHECKED X 2. APPLIED COOLING MEASURES.
[2020-04-07] MEDS: SENNOSIDES 8.6 MG TABLET PO SCH (21:14)
--- NOTE | 2020-04-07 22:03 | NUR ---
RN NOTE ENDORSED TO WINNIE AGUIRRE FOR CONTINUATION OF CARE.
[2020-04-08] VITALS (10 sets, daily range): BP systolic 91–137; BP diastolic 22–89
[2020-04-08] MEDS: ACETAMINOPHEN 325 MG TABLET PO PRN ×2 (01:16→12:37)
[2020-04-08] MEDS: METOPROLOL TARTRATE 25 MG TABLET PO SCH ×3 (06:00→18:00)
--- NOTE | 2020-04-08 06:19 | NUR ---
HELD METOPROLOL SCHEDULED AT 0600. BP 102/67. WILL CONTINUE TO MONITOR PATIENT
[2020-04-08 06:39] LABS: BASOPHILS % (AUTO) 0.5 % (0.0-2.0); EOSINOPHILS % (AUTO) 0.5 % (0.0-6.0); HEMATOCRIT 41 % (33-45); LYMPHOCYTES # (AUTO) 0.8 /CMM (0.8-4.8); LYMPHOCYTES % (AUTO) 9.8 % (20.0-44.0); MEAN CORPUSCULAR HGB CONC 32 g/dl (31.0-36.0); MEAN CORPUSCULAR VOLUME 84 fL (82-100); MONOCYTES % (AUTO) 12.4 % (2.0-12.0); NEUTROPHILS # (AUTO) 5.9 /CMM (1.8-8.9); NEUTROPHILS % (AUTO) 76.8 % (43.0-81.0); PLATELET COUNT (AUTO) 220 /CMM (150-450); RED BLOOD CELL COUNT(AUTO) 4.83 MIL/uL (4.0-5.2); WHITE BLOOD COUNT (AUTO) 7.7 K/uL (4.3-11.0)
[2020-04-08 06:57] LABS: MAGNESIUM 2.2 mg/dL (1.8-2.4); PHOSPHORUS 3.2 mg/dL (2.5-4.9); POTASSIUM 4.5 mmol/L (3.5-5.1)
--- NOTE | 2020-04-08 07:02 | NUR ---
TELE/RN CLOSING PATIENT IN BED ASLEEP. CURRENTLY WITHOUG ANY DISTRESS ON 3L OF 02 NC SATURATING AT 99% WITH NO COMPLAINTS OF SOB. ALL MEDS GIVEN ALL NEEDS MET. WILL ENDORSE TO MORNING NURSE FOR RICHARD.
--- NOTE | 2020-04-08 08:00 | NUR ---
ROUTING CLERK NOTE PATIENT IN BED AWAK ALERT WITH SOME CONFUSION, ON TELE MONITOR AFIB HR 129 , DR JASIMNE NOTIFIED , LT HAND IS SLIGHTLY SWOLLEN HL FLUSHED WELL , BED IN LOWEST AND LOCKED POSITION , REFUSING TO EAT ,ENCOURAGE ,BUT STILL REFUSING , ALL NEEDS ATTENDED WILL CONT TO MONITOR
[2020-04-08] MEDS: SODIUM CHLORIDE 1000 MG TABLET PO SCH (08:57)
[2020-04-08] MEDS: LORAZEPAM 1 MG TABLET PO SCH ×2 (08:58→17:29)
[2020-04-08] MEDS: CALCIUM CARBONATE (1250) 500 MG TABLET PO SCH (08:58)
[2020-04-08] MEDS: TOPIRAMATE 100 MG TABLET PO SCH ×2 (08:58→17:20)
[2020-04-08] MEDS: AMIODARONE HCL 200 MG TABLET PO SCH ×3 (08:58→17:20)
[2020-04-08] MEDS: BENZTROPINE MESYLATE (1 MG) 1 MG TABLET PO SCH ×4 (08:59→21:20)
[2020-04-08] MEDS: CLOPIDOGREL BISULFATE 75 MG TABLET PO SCH (08:59)
[2020-04-08] MEDS: risperiDONE 1 MG TABLET PO SCH ×2 (08:59→17:20)
[2020-04-08] MEDS: Z GUARD REMEDY 2 OZ OINT TP SCH (09:00)
[2020-04-08] MEDS: MULTIVITAMINS,THERAGRAN 1 UDTAB TABLET PO SCH (09:00)
--- NOTE | 2020-04-08 09:48 | NUR ---
WOUND CARE CONSULT: REVIEWED CHART, NURSING DOCUMENTATION AND PHOTOS WHICH SHOW RASHES AND SOME IRRITATION OF BUTTOCKS SKIN, PRESENT ON ADMISSION. RECOMMENDATIONS MADE FOR SKIN PROTECTION. DISCUSSED WITH NURSING STAFF. DR KUMAR NOTIFIED OF SURGICAL CONSULT FOR WOUND/SKIN TREATMENT PLAN. WILL SEE PRN. RIVERO IN AGREEMENT WITH PLAN OF CARE.
--- NOTE | 2020-04-08 11:21 | NUR ---
CRISIS MANAGER NOTE KEEP CLEAN DRY , TURN REPOSITION Q2 HOUR , CALL LIGHT WITHIN REACH
[2020-04-08] MEDS: ENSURE ENLIVE 237 ML LIQUID (VANILLA) PO SCH ×2 (12:35→17:21)
[2020-04-08] MEDS: DILTIAZEM HCL CD 240 MG PO SCH (12:39)
--- NOTE | 2020-04-08 14:59 | NUR ---
patient family notified pt. tranesferred to another unit rm [id number].
[2020-04-08] MEDS: NYSTATIN TOP POWDER 15 GM BOTTLE TP SCH ×2 (16:15→17:21)
[2020-04-08] MEDS: RIVAROXABAN 10 MG TABLET PO SCH ×2 (17:00→18:44)
[2020-04-08] MEDS ORDERED: FEE PK DOSING 1 MIN EA MC ONE (17:15)
--- NOTE | 2020-04-08 17:44 | NUR ---
ASSOCIATE PROFESSOR OF VIOLIN NOTE MID LINE ON RT UPPER ARM INSERTED VALENTIN 18 BY PICC LINE NURSE
[2020-04-08] MEDS ORDERED: MEROPENEM 1 G in IV NS 0.9% 100 ML IV ONE (18:00)
--- NOTE | 2020-04-08 18:24 | NUR ---
HOCKEY PLAYER NOTE ALL NEEDS ATTENDED, CONT ON O2, BUT RESTLESS AND AGITATED, KEEP CLEAN DRY ,CALL LIGHT WITHIN REACH , WILL MONITOR
[2020-04-08] MEDS: VANCOMYCIN 1.5 GM in IV D5W 500 ML IV SCH (18:56)
[2020-04-08] MEDS ORDERED: VANCOMYCIN 1.25 GM in IV D5W 250 ML IV SCH (19:00)
--- NOTE | 2020-04-08 19:55 | NUR ---
CLINICAL PSYCHIATRIST OPENING NOTE, PATIENT IN BED AWAKE ALERT/ORIENTED TO SELF, WITH SOME CONFUSION, ON TELE MONITOR AFIB HR 120S AT THIS TIME, ON NC 3LPM BREATHING EVEN AND UNLABORED, NO SOB/ACUTE DISTRESS NOTED AT THIS TIME, CASSIDY MIDLINE IN PLACED PATENT AND INTACT, BED LOCKED AND LOWEST POSITION , 2 1/2 S/R OF BED UP PROTOCOL, CALL LIGHT W/I REACH, ALL NEEDS ATTENDED, WILL CONTINUE TO MONITOR CLOSELY.
[2020-04-08] MEDS: SENNOSIDES 8.6 MG TABLET PO SCH (21:20)
--- NOTE | 2020-04-08 23:00 | NUR ---
RN NOTE PATIENT IN STABLE CONDITION. ENDORSED TO WINNIE AGUIRRE FOR CONTINUATION OF CARE.
[2020-04-09] VITALS (10 sets, daily range): BP systolic 100–147; BP diastolic 50–104
--- NOTE | 2020-04-09 | NUR ---
RN NOTE HELD METOPROLOL 50 MG AT 0000 AM DUE TO SBP<110 CONTINUE TO MONITOR.
[2020-04-09] MEDS: MEROPENEM 1 G in IV NS 0.9% 100 ML IV SCH ×3 (01:06→16:33)
[2020-04-09 04:29] LABS: BASOPHILS % (AUTO) 0.3 % (0.0-2.0); EOSINOPHILS % (AUTO) 0.9 % (0.0-6.0); HEMATOCRIT 40 % (33-45); HEMOGLOBIN 12.8 g/dL (11.5-14.8); LYMPHOCYTES # (AUTO) 0.4 /CMM (0.8-4.8); LYMPHOCYTES % (AUTO) 4.9 % (20.0-44.0); MEAN CORPUSCULAR HGB CONC 32 g/dl (31.0-36.0); MEAN CORPUSCULAR VOLUME 83 fL (82-100); MONOCYTES # (AUTO) 0.8 /CMM (0.1-1.30); MONOCYTES % (AUTO) 9.6 % (2.0-12.0); NEUTROPHILS # (AUTO) 6.8 /CMM (1.8-8.9); NEUTROPHILS % (AUTO) 84.3 % (43.0-81.0); PLATELET COUNT (AUTO) 220 /CMM (150-450); RED BLOOD CELL COUNT(AUTO) 4.82 MIL/uL (4.0-5.2); WHITE BLOOD COUNT (AUTO) 8.1 K/uL (4.3-11.0)
[2020-04-09 04:38] LABS: CALCIUM, SERUM 8.1 mg/dL (8.5-10.1); CREATININE 0.7 mg/dL (0.6-1.3); POTASSIUM 4.2 mmol/L (3.5-5.1)
[2020-04-09] MEDS: METOPROLOL TARTRATE 25 MG TABLET PO SCH ×5 (05:01→16:59)
--- NOTE | 2020-04-09 05:07 | NUR ---
RN NOTES HELD METOPROLOL 50 MG AT 0500 DUE TO SBP<110 CONTINUE TO MONITOR
--- NOTE | 2020-04-09 06:45 | NUR ---
RN CLOSING NOTE PATIENT IS ALERT ORIENTED X1,CONFUSED,VERBALLY RESPONSIVE,BREATHING IS EVEN AND UNLABORED NO SOB NOT ACUTE DISTRESS NOTED,SHE IS ON OXYGEN 3L/HR VIA NASAL CANNULA,ALL DUE MEDS GIVEN MD ORDERED, TOLERATED,KEPT CLEAN AND DRY ALL THE TIME,KEPT CALL LIGHT WITHIN REACH,ALL NEEDS ATTENDED.WILL ENDORSE TO COMING SHIFT FOR CONTINUATION OF CARE.
--- NOTE | 2020-04-09 08:00 | NUR ---
RN OPENING NOTES receive the patient resting in bed with a HR of 100 - 120; the patient is on external telemonitor; patient is Afib. O2 saturation is 98% on 3L NC. The patient has no visible respiratory distress. Patient gets agitated from increased stimulus. The patient remains stable at this time. The patient has a CASSIDY midline, flushing well, cleaned, and patent. All safety mechanism have been taken at this time. The bed is in the lowest position. Call light within reach, will continue to monitor
[2020-04-09] MEDS: risperiDONE 1 MG TABLET PO SCH ×2 (08:17→16:35)
[2020-04-09] MEDS: CALCIUM CARBONATE (1250) 500 MG TABLET PO SCH (08:17)
[2020-04-09] MEDS: DILTIAZEM HCL CD 240 MG PO SCH (08:18)
[2020-04-09] MEDS: TOPIRAMATE 100 MG TABLET PO SCH ×2 (08:19→16:35)
[2020-04-09] MEDS: LORAZEPAM 1 MG TABLET PO SCH ×2 (08:19→16:36)
[2020-04-09] MEDS: MULTIVITAMINS,THERAGRAN 1 UDTAB TABLET PO SCH (08:19)
[2020-04-09] MEDS: BENZTROPINE MESYLATE (1 MG) 1 MG TABLET PO SCH ×4 (08:19→20:36)
[2020-04-09] MEDS: SODIUM CHLORIDE 1000 MG TABLET PO SCH (08:19)
[2020-04-09] MEDS: ENSURE ENLIVE 237 ML LIQUID (VANILLA) PO SCH ×2 (08:20→16:38)
[2020-04-09] MEDS: CLOPIDOGREL BISULFATE 75 MG TABLET PO SCH (08:24)
[2020-04-09] MEDS: AMIODARONE HCL 200 MG TABLET PO SCH ×3 (08:36→16:35)
[2020-04-09] MEDS: Z GUARD REMEDY 2 OZ OINT TP SCH (08:53)
[2020-04-09] MEDS: NYSTATIN TOP POWDER 15 GM BOTTLE TP SCH ×2 (08:53→16:38)
[2020-04-09 13:59] LABS: APPEARANCE,URINE SL CLOUDY (CLEAR); BILIRUBIN,URINE NEGATIVE (NEGATIVE); BLOOD, URINE SMALL Ery/uL (NEGATIVE); COLOR,URINE YELLOW (YELLOW); KETONES,URINE NEGATIVE (NEGATIVE); NITRITE, URINE NEGATIVE (NEGATIVE); PROTEIN,URINE NEGATIVE (NEGATIVE); UGLUCOSE NEGATIVE (NEGATIVE)
[2020-04-09] MEDS: VANCOMYCIN 1.5 GM in IV D5W 500 ML IV SCH (14:07)
[2020-04-09] MEDS: DIGOXIN 0.125 MG TABLET PO SCH (14:07)
[2020-04-09 14:41] LABS: LEUKOCYTE ESTERASE ,URINE TRACE (NEGATIVE)
[2020-04-09 14:42] LABS: BACTERIA,URINE 1+ /HPF (None Seen); SQUAMOUS EPITHELIAL CELL,UR Few /HPF (None Seen)
[2020-04-09] MEDS: RIVAROXABAN 10 MG TABLET PO SCH (16:37)
--- NOTE | 2020-04-09 19:30 | NUR ---
STEM MAKER NOTE RECEIVED PATIENT IN BED ALERT AWAKE WITH PERIODS OF CONFUSION. BREATHING NORMAL NO SOB NOTED, RESPIRATION EVEN NON LABORED. NO S/S OF DISTRESS NOTED. TELE MONITOR READING A-FIB HR IN 90'S TO 110. CONTINUES ON 3L NC SATURATING 98%. IV SITE CASSIDY MIDLINE PATENT INTACT FLUSHED WELL. SKIN WARM AND DRY TO TOUCH. ALL SAFETY MEASURES IN PLACE, BED IN LOW AND LOCKED POSITION. CALL LIGHT WITHIN REACH. WILL CONT TO MONITOR.
[2020-04-09] MEDS: SENNOSIDES 8.6 MG TABLET PO SCH (21:08)
[2020-04-10] VITALS (7 sets, daily range): BP systolic 105–148; BP diastolic 58–83
[2020-04-10] MEDS: MEROPENEM 1 G in IV NS 0.9% 100 ML IV SCH ×3 (00:14→16:16)
[2020-04-10] MEDS: METOPROLOL TARTRATE 25 MG TABLET PO SCH ×4 (00:24→18:30)
[2020-04-10] MEDS: VANCOMYCIN 1.5 GM in IV D5W 500 ML IV SCH ×2 (05:59→18:14)
--- NOTE | 2020-04-10 06:25 | NUR ---
DIRECTOR OF LITIGATION NOTES PATENT RESTED NO S/S OF DISTRESS NOTED. BREATHING NORMAL NO SOB NOTED. ROUTINE MEDICATIONS WERE GIVEN ORDERED TOLERATED WELL. CASSIDY MIDLINE PATENT INTACT FLUSHED WELL. BED BATH RENDERED PATENT TOLERATED WELL. ALL NEEDS ARE ATTENDED. SAFETY MEASURES IN PLACE, CALL LIGHT WITHIN REACH. WILL ENDORSE TO AM NURSE FOR RICHARD.
[2020-04-10 06:56] LABS: BASOPHILS % (AUTO) 0.7 % (0.0-2.0); EOSINOPHILS % (AUTO) 1.3 % (0.0-6.0); HEMATOCRIT 36 % (33-45); HEMOGLOBIN 11.7 g/dL (11.5-14.8); LYMPHOCYTES # (AUTO) 0.4 /CMM (0.8-4.8); LYMPHOCYTES % (AUTO) 6.2 % (20.0-44.0); MEAN CORPUSCULAR HGB CONC 32 g/dl (31.0-36.0); MEAN CORPUSCULAR VOLUME 83 fL (82-100); MONOCYTES # (AUTO) 0.6 /CMM (0.1-1.30); MONOCYTES % (AUTO) 9.6 % (2.0-12.0); NEUTROPHILS # (AUTO) 5.5 /CMM (1.8-8.9); NEUTROPHILS % (AUTO) 82.2 % (43.0-81.0); PLATELET COUNT (AUTO) 229 /CMM (150-450); RED BLOOD CELL COUNT(AUTO) 4.36 MIL/uL (4.0-5.2); WHITE BLOOD COUNT (AUTO) 6.7 K/uL (4.3-11.0)
--- NOTE | 2020-04-10 07:30 | NUR ---
CARRIER OPERATOR OPENING NOTE Received patient asleep in bed appears calm and relaxed no signs of distress. Patient on NC 3L tolerating well O2 sat 98%. Patient is alert oriented x1 with confusion and restlessness. Tele reading A-fib 80s. Patient is on a diaper. Has CASSIDY midline flushed well and dressing intact. No co pain or discomfort. Bilateral soft restraints on wrist applied and with good circulation. Safety measures reinforced. Call light within reach. Bed locked and on lowest position. Siderails up x2. Will cont to monitor.
[2020-04-10 07:39] LABS: CALCIUM, SERUM 7.7 mg/dL (8.5-10.1); CREATININE 0.9 mg/dL (0.6-1.3); MAGNESIUM 1.9 mg/dL (1.8-2.4); PHOSPHORUS 2.7 mg/dL (2.5-4.9); POTASSIUM 3.5 mmol/L (3.5-5.1)
[2020-04-10 07:42] LABS: URIC ACID 2.9 mg/dL (2.6-7.2)
[2020-04-10] MEDS: DILTIAZEM HCL CD 240 MG PO SCH (08:18)
[2020-04-10] MEDS: SODIUM CHLORIDE 1000 MG TABLET PO SCH (08:19)
[2020-04-10] MEDS: TOPIRAMATE 100 MG TABLET PO SCH ×2 (08:19→16:17)
[2020-04-10] MEDS: LORAZEPAM 1 MG TABLET PO SCH ×2 (08:19→16:18)
[2020-04-10] MEDS: AMIODARONE HCL 200 MG TABLET PO SCH ×3 (08:19→16:18)
[2020-04-10] MEDS: MULTIVITAMINS,THERAGRAN 1 UDTAB TABLET PO SCH (08:19)
[2020-04-10] MEDS: BENZTROPINE MESYLATE (1 MG) 1 MG TABLET PO SCH ×4 (08:19→21:14)
[2020-04-10] MEDS: CALCIUM CARBONATE (1250) 500 MG TABLET PO SCH (08:19)
[2020-04-10] MEDS: CLOPIDOGREL BISULFATE 75 MG TABLET PO SCH (08:20)
[2020-04-10] MEDS: risperiDONE 1 MG TABLET PO SCH ×2 (08:20→16:19)
[2020-04-10] MEDS: NYSTATIN TOP POWDER 15 GM BOTTLE TP SCH ×2 (08:20→16:20)
[2020-04-10] MEDS: ENSURE ENLIVE 237 ML LIQUID (VANILLA) PO SCH ×2 (08:20→17:30)
[2020-04-10] MEDS: Z GUARD REMEDY 2 OZ OINT TP SCH (08:21)
[2020-04-10] MEDS: DIGOXIN 0.125 MG TABLET PO SCH (12:26)
--- NOTE | 2020-04-10 13:00 | NUR ---
EARTHMOVING PLANT OPERATOR NOTE Patient's telemonitor reading became aflutter. Informed Dr. Tribmle with no new orders.
[2020-04-10 14:49] LABS: C-REACTIVE PROTEIN 4.1 mg/dL (0.0-0.9)
[2020-04-10] MEDS: RIVAROXABAN 10 MG TABLET PO SCH (16:19)
--- NOTE | 2020-04-10 18:00 | NUR ---
ACID STRENGTH INSPECTOR NOTE covid swab done to patient collected from throat tolerated well. Swab specimen sent to laboratory.
--- NOTE | 2020-04-10 18:46 | NUR ---
FURNACE HAND CLOSING NOTE Patient in bed asleep calm and relaxed no signs of distress. On NC 3L tolerating well no signs of distress. Tele reading Afib controlled 70bpm. No co pain or discomfort. Vital signs within normal limits. CASSIDY midline running Merrem and Vancomycin. Kept pt clean and dry repositioned q2h. Safety measures reinforced. Call light within reach. Bed locked and on lowest position. Vital signs within normal limits. Will endorse to retail shift leader nurse for krunal.
--- NOTE | 2020-04-10 19:00 | NUR ---
TEST RACK OPERATOR OPENING NOTE Received patient in bed appears calm and sleepy,no signs of distress. v/s stable afebrile.Patient on NC 3L tolerating well O2 sat 98%. Patient is alert oriented x1 with confusion and restlessness. Tele reading bev 47. Patient is on a diaper. Has CASSIDY midline flushed well and dressing intact. No co pain or discomfort. Bilateral soft wrist restraints to prevent from pulling invasive tubing . Safety measures implemented. Call light within reach. Bed locked and on lowest position. Siderails up x2. Will cont to monitor.
[2020-04-10] MEDS: SENNOSIDES 8.6 MG TABLET PO SCH (21:15)
--- NOTE | 2020-04-10 22:00 | NUR ---
television camera operator notes Seen by Dr guerra ID doctor with order made and carried out , blood culture x2 and labs in am .continue on vanco for bacteremia and merrem for uti,all needs attended too .
[2020-04-11] VITALS: BP 110/57
--- NOTE | 2020-04-11 | NUR ---
telephoner notes Lopressor dose for 12mn not administered d/t heart rate 57 .
[2020-04-11] MEDS: MEROPENEM 1 G in IV NS 0.9% 100 ML IV SCH ×2 (01:28→09:10)
[2020-04-11 04:00] VITALS: BP 137/67
--- NOTE | 2020-04-11 05:31 | NUR ---
television journalist notes Pts at this time awake and screaming , morning cared rendered bed bath done.ask her to calm down , kept pts clean dry and comfortable.will endorse to rn day shift for continuity of care.
[2020-04-11] MEDS: METOPROLOL TARTRATE 25 MG TABLET PO SCH ×4 (05:41→18:02)
--- NOTE | 2020-04-11 05:45 | NUR ---
telephone claims representative notes Lopressor not administered for 6am dose d/t heart rate 57-59
[2020-04-11] MEDS: VANCOMYCIN 1.5 GM in IV D5W 500 ML IV SCH ×3 (05:56→21:36)
[2020-04-11 06:25] LABS: BASOPHILS % (AUTO) 0.5 % (0.0-2.0); EOSINOPHILS % (AUTO) 1.1 % (0.0-6.0); HEMATOCRIT 39 % (33-45); HEMOGLOBIN 12.6 g/dL (11.5-14.8); LYMPHOCYTES # (AUTO) 0.4 /CMM (0.8-4.8); LYMPHOCYTES % (AUTO) 6.4 % (20.0-44.0); MEAN CORPUSCULAR HGB CONC 32 g/dl (31.0-36.0); MEAN CORPUSCULAR VOLUME 83 fL (82-100); MONOCYTES # (AUTO) 0.6 /CMM (0.1-1.30); MONOCYTES % (AUTO) 10.7 % (2.0-12.0); NEUTROPHILS # (AUTO) 4.9 /CMM (1.8-8.9); NEUTROPHILS % (AUTO) 81.3 % (43.0-81.0); PLATELET COUNT (AUTO) 274 /CMM (150-450); RED BLOOD CELL COUNT(AUTO) 4.72 MIL/uL (4.0-5.2)
[2020-04-11 07:03] LABS: CALCIUM, SERUM 8.1 mg/dL (8.5-10.1); CREATININE 0.9 mg/dL (0.6-1.3); MAGNESIUM 2.1 mg/dL (1.8-2.4); PHOSPHORUS 3.1 mg/dL (2.5-4.9); POTASSIUM 4.1 mmol/L (3.5-5.1)
[2020-04-11 08:00] VITALS: BP 135/65
[2020-04-11] MEDS: MULTIVITAMINS,THERAGRAN 1 UDTAB TABLET PO SCH (09:07)
[2020-04-11] MEDS: DILTIAZEM HCL CD 240 MG PO SCH (09:07)
[2020-04-11] MEDS: SODIUM CHLORIDE 1000 MG TABLET PO SCH (09:07)
[2020-04-11] MEDS: AMIODARONE HCL 200 MG TABLET PO SCH ×3 (09:07→18:01)
[2020-04-11] MEDS: CALCIUM CARBONATE (1250) 500 MG TABLET PO SCH (09:08)
[2020-04-11] MEDS: LORAZEPAM 1 MG TABLET PO SCH ×2 (09:08→18:00)
[2020-04-11] MEDS: CLOPIDOGREL BISULFATE 75 MG TABLET PO SCH (09:08)
[2020-04-11] MEDS: BENZTROPINE MESYLATE (1 MG) 1 MG TABLET PO SCH ×4 (09:08→21:33)
[2020-04-11] MEDS: risperiDONE 1 MG TABLET PO SCH ×2 (09:08→18:02)
[2020-04-11] MEDS: NYSTATIN TOP POWDER 15 GM BOTTLE TP SCH ×2 (09:08→18:03)
[2020-04-11] MEDS: TOPIRAMATE 100 MG TABLET PO SCH ×2 (09:08→18:02)
[2020-04-11] MEDS: Z GUARD REMEDY 2 OZ OINT TP SCH (09:09)
[2020-04-11] MEDS: ENSURE ENLIVE 237 ML LIQUID (VANILLA) PO SCH ×2 (09:10→18:04)
--- NOTE | 2020-04-11 10:39 | NUR ---
received pt from shift stacker, alert, confused, A fib controlled, on 3L 02 sat well, tolerates diet, v/s stable, no pain, pt cleaned and changed, repositioned.
[2020-04-11 12:00] VITALS: BP_SYST 131; BP_SYST 136; BP_DIAS 67; BP_DIAS 94
[2020-04-11] MEDS: DIGOXIN 0.125 MG TABLET PO SCH (12:35)
[2020-04-11 16:00] VITALS: BP 122/56
--- NOTE | 2020-04-11 17:30 | NUR ---
pt refused straight cath.
[2020-04-11] MEDS: RIVAROXABAN 10 MG TABLET PO SCH (17:59)
--- NOTE | 2020-04-11 18:00 | NUR ---
vanco not given because pt refused blood draw for vanco trough.
[2020-04-11] MEDS: ERGOCALCIFEROL (VITAMIN D 2) 50,000 UNIT CAPSULE PO SCH (18:04)
--- NOTE | 2020-04-11 19:13 | NUR ---
RN OPENING NOTE RECEIVED PT IN BED AWAKE, IN SEMI-FOWLERS POSITION, A/O X 1, ON O2 VIA NC AT 3 L/MIN. PT IN NO DISTRESS, DENIES ANY PAIN AT THIS TIME. ON BILATERAL SOFT RESTRAINTS, SINUS TOÑO ON MONITOR. CASSIDY MIDLINE PATENT, INTACT AND FLUSHING WELL. BED LOCKED AND IN LOWEST POSITION, SIDE RAILS UP X 2, CALL LIGHT WITHIN REACH WILL CONTINUE TO MONITOR PT.
[2020-04-11 20:00] VITALS: BP 132/78
[2020-04-11] MEDS: SENNOSIDES 8.6 MG TABLET PO SCH (21:33)
[2020-04-12] VITALS: BP 99/51
[2020-04-12 04:00] VITALS: BP 103/57
[2020-04-12] MEDS: METOPROLOL TARTRATE 25 MG TABLET PO SCH ×3 (06:34→12:07)
--- NOTE | 2020-04-12 06:50 | NUR ---
RN CLOSING NOTE PT IN BED AWAKE, IN SEMI-FOWLERS POSITION, A/O X 1, ON O2 VIA NC AT 3 L/MIN. PT IN NO DISTRESS, ON BILATERAL SOFT RESTRAINTS SKIN INTACT, A FIB ON MONITOR ON MONITOR. CASSIDY MIDLINE PATENT, INTACT AND FLUSHING WELL. BED LOCKED AND IN LOWEST POSITION, SIDE RAILS UP X 2, CALL LIGHT WITHIN REACH. ENDORSED TO AM RN FOR RICHARD
--- NOTE | 2020-04-12 07:00 | NUR ---
patient in bed, not in acute distress. CASSIDY Midline intact. Oxygen at 3 L via N/C. Denies any pain or discomfort. All needs attended. Safety measures provided. Will cont to monitor
[2020-04-12 08:00] VITALS: BP 137/70
[2020-04-12] MEDS: LORAZEPAM 1 MG TABLET PO SCH (09:38)
[2020-04-12] MEDS: DILTIAZEM HCL CD 240 MG PO SCH (09:39)
[2020-04-12] MEDS: BENZTROPINE MESYLATE (1 MG) 1 MG TABLET PO SCH (09:39)
[2020-04-12] MEDS: AMIODARONE HCL 200 MG TABLET PO SCH (09:40)
[2020-04-12] MEDS: ENSURE ENLIVE 237 ML LIQUID (VANILLA) PO SCH (09:41)
[2020-04-12] MEDS: CALCIUM CARBONATE (1250) 500 MG TABLET PO SCH (09:41)
[2020-04-12] MEDS: CLOPIDOGREL BISULFATE 75 MG TABLET PO SCH (09:41)
[2020-04-12] MEDS: risperiDONE 1 MG TABLET PO SCH (09:42)
[2020-04-12] MEDS: MULTIVITAMINS,THERAGRAN 1 UDTAB TABLET PO SCH (09:42)
[2020-04-12] MEDS: SODIUM CHLORIDE 1000 MG TABLET PO SCH (09:42)
[2020-04-12] MEDS: TOPIRAMATE 100 MG TABLET PO SCH (09:43)
[2020-04-12] MEDS: NYSTATIN TOP POWDER 15 GM BOTTLE TP SCH (09:50)
[2020-04-12] MEDS: Z GUARD REMEDY 2 OZ OINT TP SCH (09:51)
[2020-04-12 11:35] LABS: CALCIUM, SERUM 8.4 mg/dL (8.5-10.1); CREATININE 0.9 mg/dL (0.6-1.3); POTASSIUM 3.9 mmol/L (3.5-5.1)
[2020-04-12 12:00] VITALS: BP 120/83
[2020-04-12 12:07] VITALS: BP 137/70
--- NOTE | 2020-04-12 12:10 | NUR ---
PATIENT REFUSED TO HAVE PHOTO TAKEN AGAIN ,PATIENT GOT AGITATED.
--- NOTE | 2020-04-12 12:30 | NUR ---
Discharge note Patient refused photo taken. CASSIDY midline intact. Sister Opal Santiago notified. Report given to nursing steam station supervisor Venice Quintanilla at [facility] . All prescriptions given.
[2020-04-12] MEDS ORDERED: VANCOMYCIN 1.5 GM in IV D5W 500 ML IV SCH (13:00)
== END 2020-04-12 13:09 | DRG 177 ==
LOC: ER 13:27 → TELE1 15:49 → TELE-TD 04-05 04:10 → TELE1 04-07 16:07 → ICU 04-08 14:02 → TELE1 04-09 22:26 → MEDSG1 04-12 11:33
PROVIDERS: ADMIT Nurse Practitioner Acute Care
PROC: 05H933Z Insertion of Infusion Device into Right Brachial Vein, Percutaneous Approach (ICD-10-PCS; principal; 2020-04-08)
DX: U07.1 COVID-19 (principal); J12.89 Other viral pneumonia; G93.41 Metabolic encephalopathy; N17.0 Acute kidney failure with tubular necrosis; J96.01 Acute respiratory failure with hypoxia; J44.0 Chronic obstructive pulmonary disease with (acute) lower respiratory infection; D68.59 Other primary thrombophilia; Z68.41 Body mass index [BMI] 40.0-44.9, adult; E22.2 Syndrome of inappropriate secretion of antidiuretic hormone; N39.0 Urinary tract infection, site not specified; E87.2 Acidosis; I48.91 Unspecified atrial fibrillation; D69.6 Thrombocytopenia, unspecified; G40.909 Epilepsy, unspecified, not intractable, without status epilepticus; E83.51 Hypocalcemia; F20.9 Schizophrenia, unspecified; G20 Parkinson's disease; F02.80 Dementia in other diseases classified elsewhere, unspecified severity, without behavioral disturbance, psychotic disturbance, mood disturbance, and anxiety; E78.5 Hyperlipidemia, unspecified; E66.9 Obesity, unspecified; Z96.641 Presence of right artificial hip joint; I11.0 Hypertensive heart disease with heart failure; I50.9 Heart failure, unspecified; R73.9 Hyperglycemia, unspecified; B96.20 Unspecified Escherichia coli [E. coli] as the cause of diseases classified elsewhere; L30.4 Erythema intertrigo; E86.0 Dehydration
CPT/HCPCS: 36415; 36600; 71045-TC; 80048-TC; 80053-TC; 80061-TC; 80076-TC; 80162-TC; 80202-TC; 81000-TC; 82550-TC; 82553; 82728-TC; 82803-TC; 83605-TC; 83615-TC; 83735-TC; 83880; 83935-TC; 84100-TC; 84300-TC; 84439-TC; 84443-TC; 84484-TC; 84550-TC; 85025-TC; 85378-TC; 85385-TC; 85730-TC; 86140-TC; 87040-TC; 87070-TC; 87081-TC; 87086-TC; 87186-TC; G0378; J0282; J1160; J1956; J2185; J3370; J3490; J7030; J7050; J7060; U0003-CS

== ENCOUNTER 2020-06-19 11:12 | Inpatient (IN) | payer MEDICARE, OTHER ==
[~2020-06-19] VITALS: Ht 165.1 cm; Wt 105.7 kg
[~2020-06-19 11:12] MED LIST changes: -ACET-2605 PO; +BENZ0.5T43 PO; +CRAN450C PO; +LORA-259 PO; +RISP0.2515 PO; +SODI1TAB66 PO; +TOPI100T PO; -TRAZ-182 PO
--- NOTE | 2020-06-19 11:17 | NUR ---
REFUGIO Antonio FROM [facility] C/O LOW HR , PER REPORT 30-34BPM, ON BETA-GABE AND XARELTO, NOTED W BRUISE AND BUMP ON R SIDE OF FOREHEAD, PER REPORT, FELL YESTERDAY. TO ER BED 8, HOOKED TO PANEL MACHINE TENDER, CHANGED TO HOSP GOWN, WARM BLANKET PROVIDED, PATIENT AAO X 2. BREATHING EVEN AND UNLABORED. NAD NOTED. AWAITING MD ONEAL.
--- NOTE | 2020-06-19 11:19 | NUR ---
DR MCCOY AT BEDSIDE
[2020-06-19] MEDS ORDERED: IV NS 0.9% 500 ML BAG IV ONE (11:30)
[2020-06-19] MEDS ORDERED: GLUCAGON,HUMAN RECOMBINANT 1 MG/VIAL VIAL IV ONE ×2 (11:30→14:30)
[2020-06-19] MEDS ORDERED: GLUCAGON,HUMAN RECOMBINANT 1 MG/VIAL VIAL ONE ×2 (11:35→13:59)
[2020-06-19] MEDS ORDERED: HYDR-4384 PO (11:44)
[2020-06-19] MEDS ORDERED: DILT-4 PO (11:44)
[2020-06-19] MEDS ORDERED: AMIN30LI2 PO (11:44)
[2020-06-19] MEDS ORDERED: ASCO-352 PO (11:44)
[2020-06-19] MEDS ORDERED: CRAN3875 PO (11:44)
[2020-06-19] MEDS ORDERED: DIGO250T PO (11:44)
[2020-06-19] MEDS ORDERED: CALC1TAB30 PO (11:44)
[2020-06-19] MEDS ORDERED: RIVA10TA PO (11:44)
[2020-06-19] MEDS ORDERED: AMIO200T4 PO (11:44)
[2020-06-19 12:03] LABS: BASOPHILS % (AUTO) 0.5 % (0.0-2.0); EOSINOPHILS % (AUTO) 1.1 % (0.0-6.0); HEMATOCRIT 37 % (33-45); HEMOGLOBIN 12.1 g/dL (11.5-14.8); LYMPHOCYTES # (AUTO) 0.5 /CMM (0.8-4.8); LYMPHOCYTES % (AUTO) 5.3 % (20.0-44.0); MEAN CORPUSCULAR HGB CONC 33 g/dl (31.0-36.0); MEAN CORPUSCULAR VOLUME 89 fL (82-100); MONOCYTES # (AUTO) 0.6 /CMM (0.1-1.30); NEUTROPHILS % (AUTO) 86.1 % (43.0-81.0); PLATELET COUNT (AUTO) 158 /CMM (150-450); RED BLOOD CELL COUNT(AUTO) 4.16 MIL/uL (4.0-5.2); WHITE BLOOD COUNT (AUTO) 9.3 K/uL (4.3-11.0)
--- NOTE | 2020-06-19 12:09 | NUR ---
PICKED UP BY TECHNICAL PROGRAM MANAGER FOR HEAD CT
[2020-06-19 12:11] LABS: CARBON DIOXIDE 23 mmol/L (21-32); CHLORIDE 93 mmol/L (98-107); CREATININE 0.9 mg/dL (0.6-1.3); GLUCOSE 135 mg/dL (74-106); POTASSIUM 4.2 mmol/L (3.5-5.1); SODIUM SERUM 125 mmol/L (136-145); UREA NITROGEN, BLOOD 12 mg/dL (7-18)
[2020-06-19 12:24] LABS: ALANINE AMINOTRANSFERASE 40 U/L (12-78); ALBUMIN 3.3 g/dL (3.4-5.0); ALKALINE PHOSPHATASE 64 U/L (46-116); ASPARTATE AMINOTRANSFERASE 22 U/L (15-37); B-TYPE NATRIURETIC PEPTIDE 1905 PG/ML (0-125); BILIRUBIN,DIRECT 0.2 mg/dL (0.0-0.2); BILIRUBIN,TOTAL 0.7 mg/dL (0.2-1.0); TOTAL PROTEIN, SERUM 7.4 g/dL (6.4-8.2)
[2020-06-19] MEDS ORDERED: ATROPINE SULFATE 1 MG/10 ML DISP.SYRIN ONE (12:50)
[2020-06-19] MEDS ORDERED: ATROPINE SULFATE 1 MG/10 ML DISP.SYRIN IV ONE (13:00)
--- NOTE | 2020-06-19 13:00 | NUR ---
RAPID COVID AND PCR SWAB DONE AND SENT TO LAB
--- NOTE | 2020-06-19 13:57 | NUR ---
MADE MD AWARE OF PATIENTS CURRENT HEART RATE. RECEIVED VERBAL ORDER OF GLUCAGON 2MG IVP. CARRIED OUT
[2020-06-19] MEDS ORDERED: HYDROCODONE/APAP 5/325MG TABLET PO PRN ×2 (14:00)
[2020-06-19] MEDS ORDERED: NA PHOS,M-B/NA PHOS,DI-BA 1 EA ENEMA RC PRN (14:00)
[2020-06-19] MEDS ORDERED: MAG HYDROX/AL HYDROX/SIMETH 30 ML UDC PO PRN (14:00)
[2020-06-19] MEDS ORDERED: MAGNESIUM HYDROXIDE 30 ML UDC PO PRN (14:00)
[2020-06-19] MEDS ORDERED: Z GUARD REMEDY 2 OZ OINT TP PRN (14:00)
[2020-06-19] MEDS ORDERED: ONDANSETRON HCL/PF 4 MG/2 ML VIAL IVP PRN (14:00)
[2020-06-19] MEDS ORDERED: ZOLPIDEM TARTRATE 5 MG TABLET PO PRN (14:00)
--- NOTE | 2020-06-19 14:42 | NUR ---
COVID RESULT: NEGATIVE
--- NOTE | 2020-06-19 14:44 | NUR ---
DR WEINSTEIN INFORMED OF THE CHANGE IN HEART RATE AFTER ADMINISTRATION OF GLUCAGON 2MG IV.
--- NOTE | 2020-06-19 14:58 | NUR ---
BED 105
--- NOTE | 2020-06-19 15:19 | NUR ---
REPORT GIVEN TO [place] AGUIRRE OF TELE UNIT
--- NOTE | 2020-06-19 15:38 | NUR ---
CAKE KNOCKER AT BEDSIDE FOR ECHOCARDIOGRAM
--- NOTE | 2020-06-19 16:10 | NUR ---
AL RN NOTES GOT REPORT FROM DONTA FROM ER. PT FROM [facility] .PT IS HR BETWEEN 30-34 ON BETA GABE. PT IS ON RA SAT 98.HAS BRUISE ON THE FOREHEAD. ALERT AND ORIENTED X2. AFIB/ TOÑO. CCHO DIET. LAC#20 .SAFETY MEASUREMENTS ARE IMPLEMENTED .CALL LIGHT WITHIN REACH. BED IS IN THE LOWEST POSITION AND BED LOCKED X2.WILL CONTINUE TO MONITOR
--- NOTE | 2020-06-19 16:21 | NUR ---
TRANSFERRED TO AL UNIT VIA ACLS PROTOCOL
[2020-06-19] MEDS ORDERED: RIVAROXABAN 10 MG TABLET PO SCH (17:00)
[2020-06-19] MEDS: LORAZEPAM 1 MG TABLET PO SCH (17:15)
[2020-06-19] MEDS: TOPIRAMATE 100 MG TABLET PO SCH (17:15)
[2020-06-19 19:18] VITALS: BP 136/56
--- NOTE | 2020-06-19 19:27 | NUR ---
AL CLOSING RN NOTES GOT REPORT FROM DONTA FROM ER. PT FROM [facility] .PT IS HR BETWEEN 30-34 ON BETA GABE. PT IS ON RA SAT 98.HAS BRUISE ON THE FOREHEAD. ALERT AND ORIENTED X2. AFIB/ TOÑO WITH PVC. CCHO DIET. LAC#20 .SAFETY MEASUREMENTS ARE IMPLEMENTED .CALL LIGHT WITHIN REACH. BED IS IN THE LOWEST POSITION AND BED LOCKED X2.WILL ENDORSE TO NIGHTSHIFT FOR RICHARD
[2020-06-19 20:00] VITALS: BP 133/74
[2020-06-19] MEDS: SENNOSIDES 8.6 MG TABLET PO SCH (21:54)
--- NOTE | 2020-06-19 23:57 | NUR ---
RN NOTE PATIENT ALERT AND ORIENTED X 1 WITH CONFUSION AND AGITATION. PT STRONGLY REFUSED TO HAVE MIDNIGHT VITAL SIGNS TAKEN DESPITE EXPLANATION OF RISKS AND BENEFITS. WILL MONITOR PATIENT.
[2020-06-20 04:00] VITALS: BP 117/60
--- NOTE | 2020-06-20 04:00 | NUR ---
RN NOTES PT REFUSED TO HAVE PHYSICAL ASSESSMENT DONE INCLUDING AUSCULTATION PF BOWEL, BREATH, OR CARDIAC SOUNDS. SHE ALSO CONTINUOUSLY REFUSED TO BE REPOSITED Q 2 HOURS DESPITE EXPLAINING THE RISKS AND/OR BENEFITS. WILL CONTINUE TO MONITOR.
--- NOTE | 2020-06-20 05:32 | NUR ---
RN NOTES PT REFUSED TO HAVE LABS DRAWN AFTER SECOND ATTEMPT EVEN AFTER EXPLAINING RISKS AND/OR BENEFITS.
--- NOTE | 2020-06-20 06:01 | NUR ---
RN NOTES PLACED 12 LEAD EKG ORDER PER DR OSCAR FOR EKG CHANGES.
--- NOTE | 2020-06-20 07:30 | NUR ---
RN NOTES RECEIVED PATIENT AWAKE, ON HIGH FOWLERS POSITION. SCREAMING FOR "HELP" IV ACCESS WAS PULLED OUT, WITH BLEADING AT THE SIDE NOTED. PATIENT ABLE TO RESPOND TO SOME QUESTIONS APPROPRIATELY, ORIENTED X1-2 BUT WITH FLIGHT OF IDEAS. ON ROOM AIR, NO SHORTNESS OF BREATH NOTED. SATING FINE. SINUS TOÑO ON THE MONITOR WITH HR ON THE 50s, MD AWARE. PATIENT ABLE TO MOVE LIMBS BUT CLAIMS TO BE "PARALYZE". SAFETY MEASURES OBSERVED AND MAINTAINED, SRX2 UP, BED IN LOW AND LOCKED POSITIONED. BED ALARM ON. CALL LIGHT PLACED WITHIN REACH. ENCOURAGE TO VERBALIZE NEEDS AND CONCERNS. TO CALL FOR HELP/ASSISTANCE. WILL CONTINUE TO MONITOR PATIENT ACCORDINGLY
[2020-06-20 08:00] VITALS: BP 142/47
[2020-06-20] MEDS: PANTOPRAZOLE 40 MG TABLET.DR PO SCH (08:11)
[2020-06-20] MEDS: ASCORBIC ACID 500 MG TABLET PO SCH (08:12)
[2020-06-20] MEDS: LORAZEPAM 1 MG TABLET PO SCH ×2 (08:12→16:57)
[2020-06-20] MEDS: TOPIRAMATE 100 MG TABLET PO SCH ×2 (08:12→16:57)
[2020-06-20] MEDS ORDERED: ERGOCALCIFEROL (VITAMIN D 2) 50,000 UNIT CAPSULE PO SCH (09:00)
[2020-06-20 10:14] LABS: BASOPHILS % (AUTO) 0.6 % (0.0-2.0); EOSINOPHILS % (AUTO) 1.2 % (0.0-6.0); HEMATOCRIT 38 % (33-45); HEMOGLOBIN 12.2 g/dL (11.5-14.8); LYMPHOCYTES # (AUTO) 0.5 /CMM (0.8-4.8); LYMPHOCYTES % (AUTO) 6.3 % (20.0-44.0); MEAN CORPUSCULAR HGB CONC 33 g/dl (31.0-36.0); MEAN CORPUSCULAR VOLUME 89 fL (82-100); MONOCYTES # (AUTO) 0.7 /CMM (0.1-1.30); NEUTROPHILS # (AUTO) 6.8 /CMM (1.8-8.9); NEUTROPHILS % (AUTO) 83.9 % (43.0-81.0); PLATELET COUNT (AUTO) 173 /CMM (150-450); RED BLOOD CELL COUNT(AUTO) 4.23 MIL/uL (4.0-5.2); WHITE BLOOD COUNT (AUTO) 8.1 K/uL (4.3-11.0)
[2020-06-20 10:25] LABS: CHOLESTEROL 129 mg/dL (<200); HDL CHOLESTEROL 56 mg/dL (40-60); LDL 67 mg/dL (0-99); THYROID STIMULATING HORMONE 3.139 uIU/mL (0.358-3.74); TRIGLYCERIDES 61 mg/dL (30-150)
[2020-06-20 10:26] LABS: B-TYPE NATRIURETIC PEPTIDE 1326 PG/ML (0-125); CALCIUM, SERUM 8.5 mg/dL (8.5-10.1); CARBON DIOXIDE 22 mmol/L (21-32); CHLORIDE 98 mmol/L (98-107); CREATININE 0.7 mg/dL (0.6-1.3); GLUCOSE 161 mg/dL (74-106); MAGNESIUM 2.3 mg/dL (1.8-2.4); PHOSPHORUS 3.7 mg/dL (2.5-4.9); POTASSIUM 4.1 mmol/L (3.5-5.1); SODIUM SERUM 130 mmol/L (136-145); UREA NITROGEN, BLOOD 10 mg/dL (7-18)
--- NOTE | 2020-06-20 10:43 | NUR ---
WOUND CARE CONSULT: REVIEWED CHART, NURSING DOCUMENTATION AND PHOTOS WHICH INDICATE RT FOOT WOUND, MULTIPLE AREAS OF DISCOLORATION/BRUISING AND RASHES TO BUTTOCKS, PRESENT ON ADMISSION. RECOMMEND DPM AND SURGICAL CONSULTS. DR FABIAN AND DR KUMAR NOTIFIED OF CONSULT REQUESTS. RECOMMENDATIONS MADE FOR SKIN PROTECTION. DISCUSSED WITH NURSING STAFF. WILL SEE PRN. RIVERO IN AGREEMENT WITH PLAN OF CARE.
[2020-06-20 12:00] VITALS: BP 149/68
[2020-06-20] MEDS: CLOTRIMAZOLE/BETAMETASONE DIPROPIONATE 15 GM TUBE TP SCH ×2 (12:29→16:57)
--- NOTE | 2020-06-20 15:09 | NUR ---
Covid with PCR Test shows iindeterminate left message to Dr Reinaldo chong; results waithing for returning call back
--- NOTE | 2020-06-20 15:19 | NUR ---
called back and orders obtained covid test with PCR and carried out
[2020-06-20 16:00] VITALS: BP 130/61
--- NOTE | 2020-06-20 18:59 | NUR ---
RN NOTES PATIENT REMAINED STABLE WITHIN THE SHIFT. NOT ON ANY FORM OF DISTRESS. TOLERATING ROOM AIR. NO ACUTE CHANGES WITHIN THE SHIFT. ALL NURSING NEEDS ATTENDED AND MET. ALL SAFETY MEASURES IN PLACE AT ALL TIMES.ISOLATION PRECAUTION IMPLEMENTED ALL TIME. WILL ENDORSE FOR CONTINUITY OF CARE
--- NOTE | 2020-06-20 19:20 | NUR ---
RN OPENING NOTES: RECEIVED PT A/OX2; CONFUSED IN BED RESTING COMFORTABLY. PATIENT IN NO S/SX OF ACUTE DISTRESS AT THIS TIME. NO SOB NOTED. PATIENT'S BREATHING IS EVEN AND UNLABORED. PATIENT IS ON RA, TOLERATING WELL. PATIENT ON TELE MONITORING READING SINUS TOÑO WITH HR 0F 54 AT TIME OF RECEIVED. PATIENT ON CARDIAC DIET. NOTED IV SITE ON L AC MIDLINE #20 ; PATENT IN INTACT,NO S/S OF INFECTION OR INFILTRATION. SAFETY MEASURES HAVE BEEN PROVIDED AND IMPLEMENTED. PATIENT BED ALARM IS ON. HEAD OF BED ELEVATED. BED IS LOCKED, IN LOWEST POSITION AND SIDE RAILS UP. CALL LIGHT WITHIN REACH OF THE PATIENT. ISOLATION PRECAUTIONS IN PLACE. WILL CONTINUE TO MONITOR AND REASSESS FOR ANY CHANGES.
[2020-06-20 20:00] VITALS: BP 145/65
[2020-06-20] MEDS: SENNOSIDES 8.6 MG TABLET PO SCH (21:02)
--- NOTE | 2020-06-21 00:05 | NUR ---
RN NOTES PER COLLAR RUNNER, PATIENT REFUSED VITAL SIGNS FOR 0000, SPOKE WITH PATIENT AND EXPLAINED RISKS AND BENEFITS. PATIENT STILL REFUSED AND SAID SHE WANTS IT TO BE DONE BY THE MORNING. BUSINESS PROJECT MANAGER MADE AWARE. WILL CONTINUE TO MONITOR.
[2020-06-21 04:00] VITALS: BP 142/64
--- NOTE | 2020-06-21 06:41 | NUR ---
RN CLOSING NOTES PATIENT REMAINS IN ROOM IN NO SIGNS OF RESPIRATORY DISTRESS. PATIENT SATURATING >95%. VITAL SIGNS WNL. SAFETY PRECAUTIONS IN PLACE AND COMFORT MEASURES RENDERED. BED IN LOWEST POSITION, CALL LIGHT WITHIN REACH, BREAKS ON, SIDE RAILS UP. ALL NEEDS ATTENDED, MEDICATIONS GIVEN SCHEDULED AND ORDERED ; SHIFT ASSESSMENT/BEDBATH/SKIN CARE DONE. PATIENT KEPT CLEAN AND DRY. WILL ENDORSE TO INCOMING SHIFT FOR RICHARD.
[2020-06-21 06:52] LABS: CALCIUM, SERUM 8.8 mg/dL (8.5-10.1); CREATININE 0.7 mg/dL (0.6-1.3); MAGNESIUM 2.1 mg/dL (1.8-2.4); PHOSPHORUS 3.2 mg/dL (2.5-4.9); POTASSIUM 3.9 mmol/L (3.5-5.1)
[2020-06-21 07:01] LABS: THYROID STIMULATING HORMONE 4.163 uIU/mL (0.358-3.74); URIC ACID 2.6 mg/dL (2.6-7.2)
--- NOTE | 2020-06-21 07:30 | NUR ---
RN OPENING NOTESRN OPENING NOTES: RECEIVED PT A/OX2; GERMAN SPEAKER, ON RA, NO SOB OF RESP DISTRESS NOTED, SPO2 IS 98%, TELE-MONITOR READINGS SHOWS SR IN 58, SKIN IS INTACT, IV ON L AC NOTED, INTACT AND FLUSHED, SAFETY MEASURES IMPLEMENTED, CALL LIGHT IN REACH, BED IN LOWEST POSITION, WILL CONT TO MONITOR
[2020-06-21] MEDS: PANTOPRAZOLE 40 MG TABLET.DR PO SCH (07:33)
[2020-06-21 08:00] VITALS: BP 138/60
[2020-06-21] MEDS: TOPIRAMATE 100 MG TABLET PO SCH ×2 (08:51→17:00)
[2020-06-21] MEDS: LORAZEPAM 1 MG TABLET PO SCH ×2 (08:51→17:00)
[2020-06-21] MEDS: ASCORBIC ACID 500 MG TABLET PO SCH (08:51)
[2020-06-21] MEDS: CLOTRIMAZOLE/BETAMETASONE DIPROPIONATE 15 GM TUBE TP SCH ×2 (08:52→17:00)
[2020-06-21] MEDS: ACETAMINOPHEN 325 MG TABLET PO PRN (09:48)
--- NOTE | 2020-06-21 11:04 | NUR ---
received a call from lab taryn pt. covid negative result will be entered later,dr. beltran notified and ok pt to noncovid floor nursing sup made aware awaits bed.
[2020-06-21 12:00] VITALS: BP 146/60
--- NOTE | 2020-06-21 12:00 | NUR ---
Trevin Jean from [facility] gave report on patient, ready to transfer
[2020-06-21 12:20] VITALS: BP 174/77
--- NOTE | 2020-06-21 12:20 | NUR ---
Transfer patient to [facility] via bed
--- NOTE | 2020-06-21 12:20 | NUR ---
TELE/REACTOR OPERATOR NOTE Received patient in bed, A&O x 2-3, confused, frequently reoriented. Received patient from Lissa AGUIRRE. Breathing even and non-labored on RA. No respiratory or cardiac distress noted. Midline access located on L AC #20, patent and intact, and flushing well. Bruises on groin, buttocks, and forehead noted. L ankle blister noted, left open to air. Redness on perineal area noted. Sensation from all peripheral extremities intact. Fall precautions maintained. Will continue to monitor patient for any changes of condition. Addendum: 06/21/20 at 1608 by LOVELY MERCHANT RN Vitals taken, on tele monitor reading SB 56
--- NOTE | 2020-06-21 18:52 | NUR ---
TELE/RN CLOSING NOTES Patient resting in bed, A&O x 2-3, remains confused and frequently reoriented throughout shift. Denies any pain/discomfort throughout shift. Breathing even and non-labored on RA, saturating well on RA. No cardiac distress noted. On tele monitor, reading SB 56. Patient kept moving leads throughout shift. Midline access located on L AC #20, patent and intact, and flushing well. No s/s of infection, bleeding, or infiltration noted on site. Sensation from all peripheral extremities intact. Fall precautions maintained. Will endorse to shift mgr nurse.
--- NOTE | 2020-06-21 19:05 | NUR ---
SPORTS PSYCHOLOGIST OPENING NOTES RECEIVED PATIENT IN ROOM, AWAKE ALERT AND ORIENTED X2, NOTED WITH EPISODES OF CONFUSION, RESPIRATIONS EVEN AND UNLABORED WITH EQUAL RISE AND FALL OF CHEST, ON CARDIAC TELE MONITOR NOTED SB 55, NO DISTRESS NOTED. LEFT AC MIDLINE INTACT AND PATENT, DENIES ANY PAIN OR DISCOMFORT, ORIENTED TO STAFF AND CALL LIGHT AND KEPT WITHIN REACH, LOW BED AND LOCKED, SAFETY PRECAUTIONS IN PLACE, ALL NEEDS ATTENDED AT THIS TIME, WILL CONTINUE TO MONITOR AND ATTEND TO NEEDS.
[2020-06-21 20:00] VITALS: BP 140/75
[2020-06-21 20:24] VITALS: BP 140/75
[2020-06-21] MEDS: SENNOSIDES 8.6 MG TABLET PO SCH (21:00)
[2020-06-22] VITALS (8 sets, daily range): BP systolic 106–191; BP diastolic 60–80
[2020-06-22] MEDS: ACETAMINOPHEN 325 MG TABLET PO PRN (06:17)
--- NOTE | 2020-06-22 06:18 | NUR ---
staff attorney notes patient stated " i have a headache can i have tylenol" tylenol prn given as ordered, will continue to monitor for effectiveness.
--- NOTE | 2020-06-22 06:19 | NUR ---
BRUSHING MACHINE OPERATOR CLOSING NOTES PATIENT IN ROOM, AWAKE ALERT AND ORIENTED X2, NOTED WITH EPISODES OF CONFUSION, RESPIRATIONS EVEN AND UNLABORED WITH EQUAL RISE AND FALL OF CHEST, ON CARDIAC TELE MONITOR NOTED SB 57 NO DISTRESS NOTED. LEFT AC MIDLINE INTACT AND PATENT, DENIES ANY PAIN OR DISCOMFORT, CALL LIGHT KEPT WITHIN REACH, LOW BED AND LOCKED, BED ALARM IN PLACE, KEPT CLEAN AND DRY, WOUND TREATMENT PROVIDED ORDERED,SACRAL AND HEELS INTACT AND OFFLOADED.SAFETY PRECAUTIONS IN PLACE, ALL NEEDS ATTENDED AT THIS TIME, WILL CONTINUE TO MONITOR AND ATTEND TO NEEDS. AND ENDORSE TO NEXT SHIFT.
--- NOTE | 2020-06-22 07:03 | NUR ---
UPPER CUTTER MACHINE OPENING NOTE RECEIVED PT AWAKE IN BED AT THIS TIME. A/O X 2-3 WITH PERIODS OF CONFUSION/FORGETFULNESS, NO SOB NOTED, NO S/S OF ANY ACUTE DISTRESS NOTED. NO C/O PAIN AT THIS TIME. RESPIRATIONS ARE EVEN AND UNLABORED WITH EQUAL RISE AND FALL IN CHEST. EXTERNAL TELE SLUDGE MILL OPERATOR READING SB IN THE 50s. LAC G# 20 SL MIDLINE NOTED, PATENT, INTACT AND FLUSHING WELL. ASPIRATION AND SAFETY PRECAUTION IN PLACE AND MAINTAINED AT ALL TIMES. BED IN LOWEST LOCKED POSITION, HOB ELEVATED, RAILS UP X 2, CALL LIGHT WITHIN REACH. WILL CONTINUE TO MONITOR
[2020-06-22] MEDS: PANTOPRAZOLE 40 MG TABLET.DR PO SCH (07:41)
[2020-06-22] MEDS: CLOTRIMAZOLE/BETAMETASONE DIPROPIONATE 15 GM TUBE TP SCH ×2 (09:46→16:44)
[2020-06-22] MEDS: LORAZEPAM 1 MG TABLET PO SCH ×2 (09:47→16:42)
[2020-06-22] MEDS: TOPIRAMATE 100 MG TABLET PO SCH ×2 (09:47→16:44)
[2020-06-22] MEDS: ASCORBIC ACID 500 MG TABLET PO SCH (09:47)
[2020-06-22] MEDS ORDERED: VALSARTAN 80 MG TABLET PO SCH ×2 (10:00→17:00)
[2020-06-22] MEDS ORDERED: RIVAROXABAN 10 MG TABLET PO SCH (17:00)
--- NOTE | 2020-06-22 18:57 | NUR ---
FOREST FIRE FIGHTERS DISPATCHER CLOSING NOTES PT AWAKE IN BED AT THIS TIME. PT REMAINED STABLE THROUGHOUT SHIFT. PT KEPT CLEAN AND DRY. ALL CARE, NEEDS, MEDICATION AND TREATMENT ADMINISTERED ANTICIPATED PER ORDER. PT REPOSITIONED Q2HR, PRN AND PER PROTOCOL. ASPIRATION AND SAFETY PRECAUTION IN PLACE. BED IN LOWEST LOCKED POSITION, HOB ELEVATED, RAILS UP X 2, CALL LIGHT WITHIN REACH. WILL ENDORSE TO FUNDRAISING OFFICER NURSE FOR RICHARD
--- NOTE | 2020-06-22 19:49 | NUR ---
GALLERY OR MUSEUM ATTENDANT OPENING NOTES: PATIENT IN BED, AWAKE, A/O X3. NO SOB NOTED. NO COMPLAIN OF PAIN. LEFT UPPER ARM MID-LINE REMOVED, TIP IS INTACT, NO BLEEDING NOTED, COVERED WITH GAUZE. D/C PACKET PREPARED AND PRINTED BY TIMOTHY HCETOR AND GIVEN TO THE AMBULANCE PERSONNEL AND REPORTS GIVEN. PER TIMOTHY HECTOR, REPORTS ALREADY GIVEN TO THE FACILITY EARLIER.
--- NOTE | 2020-06-22 19:53 | NUR ---
PICTURES ALREADY TAKEN BY TIMOTHY HECTOR AND ATTACHED TO THE CHART.
--- NOTE | 2020-06-22 20:11 | NUR ---
CALLED THE [facility] AND DR OSCAR WILL BE PAGED RE: BP-191/74 HR=61. WAITING FOR THE RESPONSE.
[2020-06-22] MEDS ORDERED: hydrALAZINE HCL 25 MG TABLET PO ONE (21:00)
--- NOTE | 2020-06-22 21:19 | NUR ---
CALLED THE [facility] RE: BP 191/74 HR 61, HYDRALAZINE 25 MG PO X1 GIVEN, AND THE LATEST BP WAS 179/80 HR 56. SPOKE TO MERT AND RN MOTO MIX OPERATOR ONEIDA. AND ONEIDA SAID THAT THEY CAN NOT ACCEPT THE PATIENT UNTIL THE BP IS AT 160'S, CHARGE NURSE CAITLIN MADE AWARE.
[2020-06-23 04:30] LABS: URINE SODIUM, RANDOM 72 mmol/l (40-220)
[2020-06-23 04:52] LABS: OSMOLALITY,URINE 226 mOS/kg (340-1090)
== END 2020-06-22 22:03 | DRG 309 ==
LOC: ER 11:14 → TELE1 15:51 → TELE-TD 18:01 → TELE1 06-20 16:14 → TELE 06-21 12:40
PROC: 05H633Z Insertion of Infusion Device into Left Subclavian Vein, Percutaneous Approach (ICD-10-PCS; principal; 2020-06-20)
PROC: B547ZZA Ultrasonography of Left Subclavian Vein, Guidance (ICD-10-PCS; 2020-06-20)
DX: R00.1 Bradycardia, unspecified (principal); D68.69 Other thrombophilia; E22.2 Syndrome of inappropriate secretion of antidiuretic hormone; E66.9 Obesity, unspecified; E83.51 Hypocalcemia; F20.9 Schizophrenia, unspecified; G20 Parkinson's disease; J44.9 Chronic obstructive pulmonary disease, unspecified; E78.5 Hyperlipidemia, unspecified; S00.03XA Contusion of scalp, initial encounter; W19.XXXA Unspecified fall, initial encounter; Y93.9 Activity, unspecified; Z96.641 Presence of right artificial hip joint; Z79.01 Long term (current) use of anticoagulants; L30.4 Erythema intertrigo; I48.91 Unspecified atrial fibrillation; I10 Essential (primary) hypertension; F02.80 Dementia in other diseases classified elsewhere, unspecified severity, without behavioral disturbance, psychotic disturbance, mood disturbance, and anxiety; S90.522A Blister (nonthermal), left ankle, initial encounter; X58.XXXA Exposure to other specified factors, initial encounter; Z68.38 Body mass index [BMI] 38.0-38.9, adult; T46.2X5A Adverse effect of other antidysrhythmic drugs, initial encounter; T48.295A Adverse effect of other drugs acting on muscles, initial encounter; T46.0X5A Adverse effect of cardiac-stimulant glycosides and drugs of similar action, initial encounter; Y92.129 Unspecified place in nursing home as the place of occurrence of the external cause
CPT/HCPCS: 36415; 70450-TC; 71045-TC; 80048-TC; 80061-TC; 80076-TC; 82533; 83605-TC; 83735-TC; 83880; 83935-TC; 84100-TC; 84300-TC; 84443-TC; 84484-TC; 84550-TC; 85025-TC; 85730-TC; 87081-TC; 93307-TC; C9803-CS; G0378; J0461; J1610; J7040; U0003-CS

== ENCOUNTER 2020-07-07 13:10 | Inpatient (IN) | payer MEDICARE, OTHER ==
[2020-07-07] VITALS (11 sets, daily range): BP systolic 114–148; BP diastolic 46–82
[~2020-07-07] VITALS: Ht 167.6 cm; Wt 101.2 kg
[~2020-07-07 13:10] MED LIST changes: +AMIN30LI2 PO; +AMIO200T4 PO; -AMLO5TAB4 PO; +ASCO-352 PO; -BISA10SU11 RC; +CALC1TAB30 PO; -CALC500T52 PO; -CLOP75TA15 PO; +CRAN3875 PO; -CRAN450C PO; +DIGO250T PO; +DILT-4 PO; +HYDR-4384 PO; -LOSA25TA3 PO; -RISP0.2515 PO; +RIVA10TA PO
--- NOTE | 2020-07-07 13:10 | NUR ---
REFUGIO Antonio FROM [facility], SENT BY PMD FOR BRADYCARDIA HR OF 33BPM. TO ER BED 8. HOOKED TO PACKAGING SALES AND POX, CHANGED TO HOSP GOWN, WARM BLANKET PROVIDED, PATIENT AAO x 1, BREATHING EVEN AND UNLABORED, NOT IN RESPIRATORY DISTRESS. DR CARNEY AT BEDSIDE FOR EVAL.
[2020-07-07] MEDS ORDERED: DIGOXIN IMMUNE FAB 40 MG in IV NS 0.9% 36 ML, IV TOTAL VOLUME 40 ML IV PRN ×3 (13:30)
[2020-07-07 13:39] LABS: BASOPHILS # (AUTO) 0.1 /CMM (0.0-0.2); BASOPHILS % (AUTO) 0.5 % (0.0-2.0); EOSINOPHILS % (AUTO) 0.6 % (0.0-6.0); HEMATOCRIT 36 % (33-45); HEMOGLOBIN 11.9 g/dL (11.5-14.8); LYMPHOCYTES # (AUTO) 0.5 /CMM (0.8-4.8); LYMPHOCYTES % (AUTO) 4.4 % (20.0-44.0); MEAN CORPUSCULAR HGB CONC 33 g/dl (31.0-36.0); MEAN CORPUSCULAR VOLUME 88 fL (82-100); MONOCYTES # (AUTO) 0.7 /CMM (0.1-1.30); MONOCYTES % (AUTO) 6.8 % (2.0-12.0); NEUTROPHILS # (AUTO) 9.5 /CMM (1.8-8.9); NEUTROPHILS % (AUTO) 87.7 % (43.0-81.0); PLATELET COUNT (AUTO) 216 /CMM (150-450); RED BLOOD CELL COUNT(AUTO) 4.04 MIL/uL (4.0-5.2); WHITE BLOOD COUNT (AUTO) 10.9 K/uL (4.3-11.0)
[2020-07-07] MEDS ORDERED: PANT40TA2 PO (13:51)
[2020-07-07] MEDS ORDERED: ZOLP5TAB2 PO (13:51)
[2020-07-07] MEDS ORDERED: NS 0.9% IV ONE ×4 (14:00)
[2020-07-07] MEDS ORDERED: TOTAL VOLUME IV ONE ×3 (14:00)
[2020-07-07] MEDS ORDERED: DIGOXIN IMMUNE FAB IV ONE ×4 (14:00)
[2020-07-07 14:03] LABS: ALANINE AMINOTRANSFERASE 53 U/L (12-78); ALBUMIN 3.5 g/dL (3.4-5.0); ALKALINE PHOSPHATASE 63 U/L (46-116); ASPARTATE AMINOTRANSFERASE 40 U/L (15-37); BILIRUBIN,DIRECT 0.2 mg/dL (0.0-0.2); BILIRUBIN,TOTAL 0.5 mg/dL (0.2-1.0); CALCIUM, SERUM 8.4 mg/dL (8.5-10.1); CARBON DIOXIDE 25 mmol/L (21-32); CHLORIDE 86 mmol/L (98-107); CREATININE 0.9 mg/dL (0.6-1.3); GLUCOSE 137 mg/dL (74-106); POTASSIUM 4.3 mmol/L (3.5-5.1); TOTAL PROTEIN, SERUM 6.9 g/dL (6.4-8.2); UREA NITROGEN, BLOOD 10 mg/dL (7-18)
--- NOTE | 2020-07-07 14:09 | NUR ---
CALLED NURSING SUPP FOR TELE BED.
[2020-07-07 14:10] LABS: SODIUM SERUM 117 mmol/L (136-145)
--- NOTE | 2020-07-07 14:10 | NUR ---
MOVE SHEET SUBMITTED TO ADMITTING AND CALLED FOR ICU BED.
--- NOTE | 2020-07-07 14:14 | NUR ---
GOT BED 254
--- NOTE | 2020-07-07 14:30 | NUR ---
REPORT GIVEN TO RICHIE AGUIRRE OF ICU
--- NOTE | 2020-07-07 14:54 | NUR ---
MORRIS VIRUS PCR DONE AND SENT TO LAB.
--- NOTE | 2020-07-07 15:13 | NUR ---
RN NOTES RECEIVED PT IN ROOM 254 FROM ER, PT IS A/O x2-3, ON RA , NO SOB NOTED, BRADYCARDIC , HR IN HIGH 30'S , R AC IV SITE G #20 CLEAN ,DRY AND INTACT, RASHES AND REDNESS AREA NOTED TO PERINEAL AND L AXILLARY AREA , PICTURES TAKE AND PLACED IN CHART, WOUND CONSULT ORDERED, SR UP X3, CALL LIGHT WITHIN EASY REACH, BED LOCKED AND IN LOWEST POSITION, CONTINUE TO MONITOR .
[2020-07-07] MEDS ORDERED: NA PHOS,M-B/NA PHOS,DI-BA 1 EA ENEMA RC PRN (16:30)
[2020-07-07] MEDS ORDERED: ZOLPIDEM TARTRATE 5 MG TABLET PO PRN (16:30)
[2020-07-07] MEDS: LORAZEPAM 1 MG TABLET PO SCH (16:41)
[2020-07-07] MEDS: TOPIRAMATE 100 MG TABLET PO SCH (16:44)
[2020-07-07] MEDS: BENZTROPINE MESYLATE (1 MG) 1 MG TABLET PO SCH ×2 (16:45→20:10)
[2020-07-07] MEDS ORDERED: RIVAROXABAN 10 MG TABLET PO SCH (17:00)
--- NOTE | 2020-07-07 18:36 | NUR ---
RN NOTES PT'S HR IN LOW 40'S , ON RA, NO DISTRESS NOTED, SR UP X3, CALL LIGHT WITHIN EASY REACH, BED LOCKED AND IN LOWEST POSITION, WILL ENDORSE TO SOFTWARE ENGINEER ADVISOR NURSE FOR CONTINUITY OF CARE
[2020-07-07] MEDS: Z GUARD REMEDY 2 OZ OINT TP SCH (18:49)
--- NOTE | 2020-07-07 19:30 | NUR ---
RN NOTES RECEIVED PATIENT IN BED ALERT AWAKE AOX2. ON RA SATURATING 98%, BREATHING NORMAL NO SOB NOTED. RESPIRATION EVEN NON LABORED. BRADYCARDIC HR IN 48'S. IV SITE RAC G#20 INTACT PATENT FLUSHES WELL. ABD SOFT AND NON DISTENDED. ALL SAFETY MEASURES IN PLACE, CALL LIGHT WITHIN REACH. WILL CONT TO MONITOR FOR RICHARD.
--- NOTE | 2020-07-07 20:00 | NUR ---
LATE ENTRY PATIENT'S VTE SCORE IS 5 AND CURRENTLY RECEIVING XARELTO SCD ON. Addendum: 07/09/20 at 0136 by PA REYNOLDS RN Amended: Links added.
[2020-07-07] MEDS: SENNOSIDES 8.6 MG TABLET PO SCH (21:15)
[2020-07-08] VITALS (31 sets, daily range): BP systolic 105–152; BP diastolic 45–97
--- NOTE | 2020-07-08 04:00 | NUR ---
BED BATH GIVEN PATIENT TOLERATED WELL.
--- NOTE | 2020-07-08 07:00 | NUR ---
RN NOTES DURING SHIFT PATIENT'S COVID RESULTS CAME OUT NEGATIVE AND PATIENT STARTED ON BIPAP PER MD, PATIENT TOLERATED WELL. DUE MEDICATIONS WERE GIVEN PATIENT TOLERATED WELL. NO S/S OF ACUTE DISTRESS NOTED. F/C INTACT YELLOW URINE RUNNING TO GRAVITY. KEPT CLEAN DRY AND COMFORTABLE. ALL NEEDS ATTENDED. SAFETY MEASURES IN PLACE, CALL LIGHT WITHIN REACH. ENDORSE TO NIGHT NURSE FOR RICHARD. Addendum: 07/08/20 at 0703 by PA REYNOLDS RN ERROR IN CHARTING WRONG PATIENT.
--- NOTE | 2020-07-08 07:03 | NUR ---
RN NOTES NO CHANGES NOTED DURING SHIFT, DUE MEDICATIONS WERE GIVEN PATIENT TOLERATED WELL. NO S/S OF ACUTE DISTRESS NOTED. PATIENT REMAINED BRADYCARDIC HR REMAINS BETWEEN 37 TO 61'S. KEPT CLEAN DRY AND COMFORTABLE. ALL NEEDS ATTENDED. SAFETY MEASURES IN PLACE, CALL LIGHT WITHIN REACH. ENDORSE TO NIGHT NURSE FOR RICHARD.
--- NOTE | 2020-07-08 07:05 | NUR ---
RN NOTES RECEIVED PATIENT ON BED A/Ox2 , ON RA 92 SAT 99%, NO SOB NOTED, RESPIRATION EVEN AND UNLABORED, BRADYCARDIC HR IN 40'S , IV SITE RAC G#20 INTACT PATENT FLUSHES WELL. SR UP x3, CALL LIGHT WITHIN EASY REACH, BED LOCKED AND IN LOWEST POSITION, WILL CONT. TO MONITOR .
--- NOTE | 2020-07-08 08:26 | NUR ---
WOUND CARE CONSULT: REVIEWED CHART, NURSING DOCUMENTATION AND PHOTOS WHICH INDICATE FOREHEAD DISCOLORATION, RASHES WELL WOUND TO LEFT ANKLE, PRESENT ON ADMISSION. PT FOLLOWED BY SURGICAL AND PODIATRY TEAMS FOR WOUND CARE. DR KUMAR AND DR FABIAN NOTIFIED OF READMISSION. RECOMMENDATIONS MADE FOR SKIN PROTECTION AND DISCUSSED WITH NURSING STAFF. PT IS ON [place] ISOFLEX LOW AIRLOSS BED. MD IN AGREEMENT WITH PLAN OF CARE.
[2020-07-08 08:27] LABS: BASOPHILS # (AUTO) 0.1 /CMM (0.0-0.2); BASOPHILS % (AUTO) 0.5 % (0.0-2.0); EOSINOPHILS % (AUTO) 1.3 % (0.0-6.0); HEMATOCRIT 38 % (33-45); HEMOGLOBIN 12.6 g/dL (11.5-14.8); LYMPHOCYTES # (AUTO) 0.8 /CMM (0.8-4.8); LYMPHOCYTES % (AUTO) 8.4 % (20.0-44.0); MEAN CORPUSCULAR HGB CONC 33 g/dl (31.0-36.0); MEAN CORPUSCULAR VOLUME 89 fL (82-100); MONOCYTES % (AUTO) 10.6 % (2.0-12.0); NEUTROPHILS # (AUTO) 7.6 /CMM (1.8-8.9); NEUTROPHILS % (AUTO) 79.2 % (43.0-81.0); PLATELET COUNT (AUTO) 209 /CMM (150-450); RED BLOOD CELL COUNT(AUTO) 4.27 MIL/uL (4.0-5.2); WHITE BLOOD COUNT (AUTO) 9.6 K/uL (4.3-11.0)
[2020-07-08] MEDS: BENZTROPINE MESYLATE (1 MG) 1 MG TABLET PO SCH ×4 (08:30→20:21)
[2020-07-08] MEDS: ASCORBIC ACID 500 MG TABLET PO SCH (08:30)
[2020-07-08] MEDS: PANTOPRAZOLE 40 MG TABLET.DR PO SCH (08:30)
[2020-07-08] MEDS: TOPIRAMATE 100 MG TABLET PO SCH ×2 (08:31→16:15)
[2020-07-08] MEDS: Z GUARD REMEDY 2 OZ OINT TP SCH (08:31)
[2020-07-08] MEDS: LORAZEPAM 1 MG TABLET PO SCH ×2 (09:00→16:16)
--- NOTE | 2020-07-08 09:01 | NUR ---
RN NOTES HR IN LOW 40'S, ATIVAN HELD PER MD ORDER
[2020-07-08 09:46] LABS: CALCIUM, SERUM 8.7 mg/dL (8.5-10.1); CREATININE 0.8 mg/dL (0.6-1.3); POTASSIUM 4.1 mmol/L (3.5-5.1)
--- NOTE | 2020-07-08 10:00 | NUR ---
RN NOTES PT HAS PERINEAL EXCORIATION , INCONTINENT AND VOIDING LARGE AMOUNT , NOVAK INSERTED PER FISHERIES DIRECTOR ORDER.
[2020-07-08 10:07] LABS: IRON, SERUM 59 ug/dl (50-175); TOTAL IRON BINDING CAPACITY 892 ug/dl (250-450)
--- NOTE | 2020-07-08 12:00 | NUR ---
RN NOTES HR IN LOW 40'S , PT STABLE , CONTINUE TO MONITOR.
[2020-07-08 15:06] LABS: FERRITIN 322 ng/mL (8-388)
[2020-07-08 15:26] LABS: COLOR,URINE YELLOW (YELLOW); PH,URINE 7.5 (5.0-8.0); PROTEIN,URINE TRACE mg/dl (NEGATIVE); UGLUCOSE NEGATIVE (NEGATIVE)
[2020-07-08 15:27] LABS: BILIRUBIN,URINE NEGATIVE (NEGATIVE); BLOOD, URINE 1+ Ery/uL (NEGATIVE); KETONES,URINE NEGATIVE (NEGATIVE)
[2020-07-08 15:28] LABS: LEUKOCYTE ESTERASE ,URINE 2+ (NEGATIVE); NITRITE, URINE NEGATIVE (NEGATIVE); UROBILINOGEN,URINE 0.2 EU/dL (0.2)
[2020-07-08 15:39] LABS: APPEARANCE,URINE TURBID (CLEAR)
[2020-07-08 15:40] LABS: BACTERIA,URINE Moderate /HPF (None Seen); SQUAMOUS EPITHELIAL CELL,UR Few /HPF (None Seen); WBC,URINE TOO NUMEROUS TO COUN /HPF (0-3)
[2020-07-08] MEDS: MENTHOL/CETYLPYRD (CEPACOL) 1 LOZ LOZENGE PO PRN (16:15)
--- NOTE | 2020-07-08 18:00 | NUR ---
RN NOTES NO SIGNIFICANT CHANGES NOTED ON THIS SHIFT, PT IS A/Ox2 , HR IN LOW 40'S , PT DENIES ANY DISTRESS , SR UP X3, CALL LIGHT WITHIN EASY REACH, BED LOCKED AND IN LOWEST POSITION, WILL ENDOSE TO PRINCIPAL QUALITY ENGINEER NURSE FOR CONTINUITY OF CARE .
--- NOTE | 2020-07-08 19:30 | NUR ---
RN NOTES RECEIVED PATIENT IN BED AOX3. BREATHING NORMAL NO SOB NOTED, NO RESPIRATORY DISTRESS NOTED. ON RA SATURATING WELL 98% TO 99%. HR IN 46'S. RAC IV INTACT FLUSHES WELL. F/C INTACT YELLOW URINE RUNNING TO GRAVITY. SAFETY MEASURES INN PLACE, CALL LIGHT WITHIN REACH. WILL CONT TO MONITOR FOR RICHARD.
[2020-07-08] MEDS: CLOTRIMAZOLE 1% 15 GM TUBE TP SCH (20:50)
[2020-07-08] MEDS: SENNOSIDES 8.6 MG TABLET PO SCH (21:05)
[2020-07-09] VITALS (16 sets, daily range): BP systolic 135–168; BP diastolic 52–89
[2020-07-09] MEDS: ACETAMINOPHEN 325 MG TABLET PO PRN ×2 (01:46→19:49)
[2020-07-09] MEDS: MENTHOL/CETYLPYRD (CEPACOL) 1 LOZ LOZENGE PO PRN ×2 (02:27→21:42)
[2020-07-09 04:46] LABS: THYROID STIMULATING HORMONE 3.369 uIU/mL (0.358-3.74); URIC ACID 1.8 mg/dL (2.6-7.2)
[2020-07-09 04:58] LABS: ALANINE AMINOTRANSFERASE 62 U/L (12-78); ALBUMIN 3.4 g/dL (3.4-5.0); ALKALINE PHOSPHATASE 67 U/L (46-116); ASPARTATE AMINOTRANSFERASE 35 U/L (15-37); BILIRUBIN,TOTAL 0.5 mg/dL (0.2-1.0); CALCIUM, SERUM 8.8 mg/dL (8.5-10.1); CARBON DIOXIDE 23 mmol/L (21-32); CHLORIDE 94 mmol/L (98-107); CREATININE 0.8 mg/dL (0.6-1.3); GLUCOSE 114 mg/dL (74-106); MAGNESIUM 2.2 mg/dL (1.8-2.4); PHOSPHORUS 3.4 mg/dL (2.5-4.9); POTASSIUM 3.9 mmol/L (3.5-5.1); SODIUM SERUM 127 mmol/L (136-145); UREA NITROGEN, BLOOD 6 mg/dL (7-18)
[2020-07-09 05:09] LABS: BASOPHILS # (AUTO) 0.1 /CMM (0.0-0.2); BASOPHILS % (AUTO) 0.9 % (0.0-2.0); EOSINOPHILS % (AUTO) 1.7 % (0.0-6.0); HEMATOCRIT 38 % (33-45); HEMOGLOBIN 12.9 g/dL (11.5-14.8); LYMPHOCYTES # (AUTO) 0.7 /CMM (0.8-4.8); LYMPHOCYTES % (AUTO) 8.3 % (20.0-44.0); MEAN CORPUSCULAR HGB CONC 34 g/dl (31.0-36.0); MEAN CORPUSCULAR VOLUME 89 fL (82-100); MONOCYTES # (AUTO) 0.9 /CMM (0.1-1.30); MONOCYTES % (AUTO) 9.9 % (2.0-12.0); NEUTROPHILS % (AUTO) 79.2 % (43.0-81.0); PLATELET COUNT (AUTO) 225 /CMM (150-450); RED BLOOD CELL COUNT(AUTO) 4.31 MIL/uL (4.0-5.2); WHITE BLOOD COUNT (AUTO) 8.9 K/uL (4.3-11.0)
--- NOTE | 2020-07-09 05:38 | NUR ---
PT REFUSED EKG.
--- NOTE | 2020-07-09 07:08 | NUR ---
RN NOTES NO CHANGES NOTED DURING SHIFT. NO S/S OF ACUTE DISTRESS NOTED. ROUTINE MEDICATIONS WERE GIVEN ALONG WITH PRN NOTED TO BE EFFECTIVE TOLERATED WELL. IV'S INTACT FLUSHES WELL. F/C INTACT YELLOW URINE DARNING TO GRAVITY. ALL NEEDS ATTENDED. KEPT CLEAN AND DRY. WILL ENDORSE TO AM NURSE FOR RICHARD.
--- NOTE | 2020-07-09 07:30 | NUR ---
MOWER SHARPENER NOTES RECEIVED PATIENT IN BED ASLEEP, AROUSABLE TO VERBAL AND TACTILE STIMULI. HOB ELEVATED. NO SOB. DENIES ANY C/O PAIN NOR DISCOMFORT. ON TELE MONITORING SB. A&0 X2. NOVAK CATHETER INTACT AND PATENT DRAINING YELLOW COLORED URINE VIA BEDSIDE. RIGHT AC #20 SL INTACT AND PATENT. BED IN LOWEST POSITION, LOCKED BED ALARM ON. CALL LIGHT WITHIN REACH. ABLE TO VERBALIZE NEED.
[2020-07-09] MEDS: Z GUARD REMEDY 2 OZ OINT TP SCH (09:00)
[2020-07-09] MEDS: TOPIRAMATE 100 MG TABLET PO SCH ×2 (09:32→16:48)
[2020-07-09] MEDS: BENZTROPINE MESYLATE (1 MG) 1 MG TABLET PO SCH ×4 (09:32→21:25)
[2020-07-09] MEDS: PANTOPRAZOLE 40 MG TABLET.DR PO SCH (09:32)
[2020-07-09] MEDS: LORAZEPAM 1 MG TABLET PO SCH ×2 (09:33→16:48)
[2020-07-09] MEDS: ASCORBIC ACID 500 MG TABLET PO SCH (09:34)
[2020-07-09] MEDS: CLOTRIMAZOLE 1% 15 GM TUBE TP SCH ×2 (09:35→16:49)
--- NOTE | 2020-07-09 11:10 | NUR ---
WHEEL FITTER NOTES REPORT GIVEN TO TIMOTHY OJEDA FOR CONTINUATION OF CARE.
--- NOTE | 2020-07-09 11:10 | NUR ---
BIOINFORMATICS ANALYST NOTES PATIENT TRANSFERRED TO [facility] PER [facility]OT[facility]OL. PATIENT IN STABLE CONDITION.
--- NOTE | 2020-07-09 11:15 | NUR ---
CONTROL DIRECTOR NOTES PATIENT RECEIVED FROM RN. ALERT AND ORIENTED X 2-3 WITH PERIODS OF AGITATION. PATIENT ON ROOM AIR WITH NO SIGNS OF RESPIRATORY DISTRESS AT THIS TIME, WITH EVEN NON-LABORED BREATHING AND NO SIGNS OF SOB NOTED AT THIS TIME. PATIENT SKIN WARM AND DRY TO TOUCH. IV ACCESS INTACT AND PATENT SALINE LOCK. PATIENT NOVAK CATHETER INTACT WITH YELLOW URINE OUTPUT FLOWING BY GRAVITY. ON RIM TURNING MACHINE OPERATOR SINUS RHYTHM/ SINUS BRADYCARDIA 53. SAFETY PRECAUTIONS IMPLEMENTED WITH THE BED LOCKED, BED IN THE LOWEST POSITION, BILATERAL SIDE RAILS UP, BED ALARM ON, AND CALL LIGHT WITHIN EASY REACH. WILL CONTINUE TO MONITOR PATIENT.
[2020-07-09] MEDS: CEFTRIAXONE 1 G in IV D5W 50 ML IV SCH (13:20)
[2020-07-09] MEDS: SOD FERRIC GLUC 125 MG in IV NS 0.9% 100 ML IV SCH (15:25)
--- NOTE | 2020-07-09 18:38 | NUR ---
TECHNICAL ASST NOTES PATIENT ALERT AND ORIENTED IN BED. RESTING COMFORTABLY WITH PERIODS OF AGITATION PRESENT. PATIENT ON ROOM AIR WITH NO SIGNS OF RESPIRATORY DISTRESS PRESENT AT THIS TIME WITH EVEN NON-LABORED BREATHING, AND NO SIGNS OF SOB. ON CARD HAND, SINUS RHYTHM SINUS BRADYCARDIA 57. PATIENT SKIN WARM AND DRY TO TOUCH. IV ACCESS INTACT AND PATENT SALINE LOCK. SAFETY PRECAUTION IMPLEMENTED WITH BED LOCKED, BED IN THE LOWEST POSITION, BILATERAL SIDE RAILS UP, BED ALARM ON, AND CALL LIGHT WITHIN EASY REACH OF PATIENT. WILL ENDORSE PLAN OF CARE TO UPCOMING NURSE.
--- NOTE | 2020-07-09 19:20 | NUR ---
RECEIVED PT IN BED. AGITATED. A/O X 4. PT EXPRESSES FREQUENT PERIODS OF AGITATION. IS ON RA WITH NO SIGNS OF RESPIRATORY DISTRESS OR SOB. ON TELE MONITOR, PT IS SB 49. RAC #20 FLUSHED INTACT. NOVAK CATHETER PRESENT, DRAINING YELLOW URINE. SAFETY PRECAUTIONS IMPLEMENTED. CALL LIGHT WITHIN REACH. WILL CONTINUE TO MONITOR.
--- NOTE | 2020-07-09 19:30 | NUR ---
PULL UP HAND NOTE PT VERBALIZED HEAD PAIN 01/07. GAVE 650MG TYLENOL PRN ORDERED. PT VERBALIZED SHE DID NOT WANT SCD ON. EXPLAINED RISKS AND BENEFITS AND SHE STILL REFUSED.
[2020-07-09] MEDS: SENNOSIDES 8.6 MG TABLET PO SCH (21:25)
[2020-07-10] VITALS (7 sets, daily range): BP systolic 117–185; BP diastolic 38–87
--- NOTE | 2020-07-10 00:30 | NUR ---
TIMOTHY SANCHEZ BP WAS RECHECKED Addendum: 07/10/20 at 0738 by ASHWIN BRADY RN 130/60 HR 38 TEMP 97.9 SPO2 98% VIA ROOM AIR
[2020-07-10] MEDS: ACETAMINOPHEN 325 MG TABLET PO PRN ×2 (05:22→14:04)
--- NOTE | 2020-07-10 06:51 | NUR ---
SALICYLIC ACID BLENDER NOTE PT CURRENTLY RESTING IN BED. SLEPT INTERMITTENTLY THROUGHOUT THE NIGHT WITH PERIODS OF AGITATION AND CONFUSION. NEEDS CONSTANT REDIRECTION. ON RA, SATURATING AT 98. NO SOB OR DISTRESS AT THIS TIME. TELE MONITOR SHOWS SB 45 WITH PVCS AND BBB. ISOLATIONS PRECAUTIONS FOR MRSA OF NARES MAINTAINED. SAFETY MEASURES IN PLACE. CALL LIGHT WITHIN REACH. WILL ENDORSE TO ONCOMING NURSE FOR CONTINUATION OF CARE.
[2020-07-10 06:54] LABS: BASOPHILS # (AUTO) 0.1 /CMM (0.0-0.2); BASOPHILS % (AUTO) 0.8 % (0.0-2.0); EOSINOPHILS % (AUTO) 1.9 % (0.0-6.0); HEMATOCRIT 39 % (33-45); HEMOGLOBIN 12.9 g/dL (11.5-14.8); LYMPHOCYTES # (AUTO) 0.9 /CMM (0.8-4.8); LYMPHOCYTES % (AUTO) 6.8 % (20.0-44.0); MEAN CORPUSCULAR HGB CONC 33 g/dl (31.0-36.0); MEAN CORPUSCULAR VOLUME 89 fL (82-100); MONOCYTES # (AUTO) 1.3 /CMM (0.1-1.30); NEUTROPHILS # (AUTO) 10.2 /CMM (1.8-8.9); NEUTROPHILS % (AUTO) 80.5 % (43.0-81.0); PLATELET COUNT (AUTO) 229 /CMM (150-450); RED BLOOD CELL COUNT(AUTO) 4.44 MIL/uL (4.0-5.2); WHITE BLOOD COUNT (AUTO) 12.6 K/uL (4.3-11.0)
[2020-07-10 07:14] LABS: CALCIUM, SERUM 8.2 mg/dL (8.5-10.1); CREATININE 0.9 mg/dL (0.6-1.3); POTASSIUM 3.5 mmol/L (3.5-5.1)
--- NOTE | 2020-07-10 07:35 | NUR ---
RN OPENING NOTES Received patient in bed, A/Ox3, agitated,on room air, saturating 99%, nos/sx of resp distress,no SOB noted. Tele-monitor readings SB 51-52. Patient skin intact, on bed rest , able to do passive range of motion; IV line is noted on R AC G#20, Rosales cath in place draining yellow clear urine by gravity. Diet order is reviewed (REGULAR) . Safety measures in place, bed in lowest position, HOB elevated, call light in reach, will cont to monitor closely
[2020-07-10] MEDS: LORAZEPAM 1 MG TABLET PO SCH ×2 (08:27→16:55)
[2020-07-10] MEDS: ASCORBIC ACID 500 MG TABLET PO SCH (08:28)
[2020-07-10] MEDS: CLOTRIMAZOLE 1% 15 GM TUBE TP SCH ×2 (08:29→16:55)
[2020-07-10] MEDS: Z GUARD REMEDY 2 OZ OINT TP SCH (08:29)
[2020-07-10] MEDS: BENZTROPINE MESYLATE (1 MG) 1 MG TABLET PO SCH ×4 (08:29→20:58)
[2020-07-10] MEDS: PANTOPRAZOLE 40 MG TABLET.DR PO SCH (08:29)
[2020-07-10] MEDS: MAGNESIUM HYDROXIDE 30 ML UDC PO PRN (08:53)
[2020-07-10] MEDS: TOPIRAMATE 100 MG TABLET PO SCH ×2 (08:54→16:55)
[2020-07-10] MEDS: CEFTRIAXONE 1 G in IV D5W 50 ML IV SCH (12:31)
--- NOTE | 2020-07-10 14:00 | NUR ---
PATIENT COMPLAINS ON ABDOMINAL PAIN , 5/10, ASKING FOR PAIN MEDICATION, WILL ADMINISTER PRN ACCORDING TO PAIN LEVEL
[2020-07-10] MEDS: SOD FERRIC GLUC 125 MG in IV NS 0.9% 100 ML IV SCH (14:04)
--- NOTE | 2020-07-10 19:20 | NUR ---
RN CLOSING NOTES PATIENT REMAINS IN ROOM, YELLING OUT OCCASIONALLY, AGITATED, DENIES PAIN OR DISCOMFORT, NO S/SX OF DISTRESS NOTED, BLOOD PRESSURE IS STABLE, HR IS BETWEEN 50-60 ALL DAY ,IV LINES INTACTR AND PATENT, FLUSHED, ALL NEEDS ARE MET, MEDICATIONS GIVEN, SAFETY MEASURES IN PLACE, BED ALARM IS ON, BED IS LOCKED, SIDE RAILS UP X2, WILL ENDORSE TO PM SHIFT RN FOR RICHARD
--- NOTE | 2020-07-10 20:30 | NUR ---
RN OPENING NOTES Received the client resting in bed, the client is verbally active, alert to simple commands but not oriented to time nor place. The client remains active and independent with minimum assistance for ADL's. The client is on external telemonitor, BP and HR WNL. Will continue to monitor the client for continuity of care. Safety measures provided, all comfort measures in place.
[2020-07-10] MEDS: MUPIROCIN OINT 2% 22 GM TUBE NS SCH (20:58)
--- NOTE | 2020-07-10 21:00 | NUR ---
the client requested pain medication, rating pain at 8/10. Will provide pain medication as requested. HR at 79, BP 140/60.
[2020-07-10] MEDS: NITROFURANTOIN/NITROFURAN MAC 100 MG CAPSULE PO SCH (21:26)
[2020-07-10] MEDS: SENNOSIDES 8.6 MG TABLET PO SCH (21:26)
[2020-07-10] MEDS: HYDROCODONE/APAP 5/325MG TABLET PO PRN (22:09)
[2020-07-11] VITALS: BP 149/55
--- NOTE | 2020-07-11 00:29 | NUR ---
at 0008 the client experienced a decrease in HR to 30's. Client HR is maintaining the 48 to 54's at this moment. The client is asymptomatic. No s/s of distress manifested. no labored breathing. BP 140/80. The client verbally expresses to have no pain or distress.
--- NOTE | 2020-07-11 01:00 | NUR ---
HR of the client remains in the 40's with s/s of distress. The client is peacefully sleeping. Sturation remains at 98% on 3L of O2 NC. Will continue to monitor.
--- NOTE | 2020-07-11 02:00 | NUR ---
the client continues to have HR in the 40's. CLient has no symptoms of distress, will continue to monitor.
--- NOTE | 2020-07-11 03:02 | NUR ---
Continue to monitor the client for any sign of distress, client remains stable with a HR of 42 -48 bpm. BP 130/78. Will continue to monitor the client. NO s/s of distress are present at this time. Charge nurse mikhail remains updated and following closely the status of the client.
[2020-07-11 04:00] VITALS: BP 109/47
--- NOTE | 2020-07-11 04:32 | NUR ---
the client refuses to have bed bath or to have any linen hammond at this moment will try again later.
--- NOTE | 2020-07-11 06:46 | NUR ---
RN CLOSING NOTE The client remains visibly stable with a HR in the 40's. NO s/s of distress at this time. No respiratory distress present, saturation 98% on 2L NC. The client is easily agitated when asked if it is okay to change the bed linen. Client is alert and verbal. Understands and follows simple commands as of this moment. Comfort measures provide. Safety mechanisms in place. Will endorse the incoming shit for continuity of care.
--- NOTE | 2020-07-11 06:50 | NUR ---
0650 DR. JASMINE IN THE UNIT AND MADE AWARE OF PATIENT'S PERSISTENT BRADYCARDIA IN THE 30S EVEN WHEN AWAKE WITH ORDER FOR PT EVAL TO AMBULATE. NO ORDER REGARDING BRADYCARDIA. HE WENT INSIDE PATIENT ROOM AND EXAMINED PATIENT.
[2020-07-11 06:58] LABS: CALCIUM, SERUM 7.7 mg/dL (8.5-10.1); CREATININE 0.8 mg/dL (0.6-1.3); POTASSIUM 4.1 mmol/L (3.5-5.1)
[2020-07-11 08:00] VITALS: BP 156/62
--- NOTE | 2020-07-11 08:15 | NUR ---
AL LIV RN NOTES RECEIVED PT IN BED. ALERT AND ORIENTED X2.PT IS SINUS TOÑO IN HER 40 'S AFTER BLOOD PRESSURE MEDS WERE GIVEN IN SHELTER. PT HAS NOVAK CAT. PT IS ON STRICT FLUIF 1000CC DAILY. RAL #20 TKO 3CC/HR IS FLUSHING WELL, INTACT AND NO INFILTRATION NOTED. PT IS ON RA SAT 98%.NO RESPIRATORY DISTRESS NOTED. SAFETY MEASUREMENTS ARE IMPLEMENTED. BED IS IN THE LOWEST POSITION RAILS ARE UP X2. WILL CONTUNIE TO MONITOR
[2020-07-11] MEDS: BENZTROPINE MESYLATE (1 MG) 1 MG TABLET PO SCH ×2 (08:22→13:12)
[2020-07-11] MEDS: NITROFURANTOIN/NITROFURAN MAC 100 MG CAPSULE PO SCH (08:22)
[2020-07-11] MEDS: PANTOPRAZOLE 40 MG TABLET.DR PO SCH (08:22)
[2020-07-11] MEDS: LORAZEPAM 1 MG TABLET PO SCH (08:23)
[2020-07-11] MEDS: ASCORBIC ACID 500 MG TABLET PO SCH (08:23)
[2020-07-11] MEDS: MAGNESIUM HYDROXIDE 30 ML UDC PO PRN ×3 (08:23→15:34)
[2020-07-11] MEDS: TOPIRAMATE 100 MG TABLET PO SCH (08:23)
[2020-07-11 08:59] LABS: BASOPHILS # (AUTO) 0.1 /CMM (0.0-0.2); BASOPHILS % (AUTO) 0.5 % (0.0-2.0); EOSINOPHILS % (AUTO) 1.8 % (0.0-6.0); HEMATOCRIT 37 % (33-45); HEMOGLOBIN 12.1 g/dL (11.5-14.8); LYMPHOCYTES # (AUTO) 0.9 /CMM (0.8-4.8); LYMPHOCYTES % (AUTO) 7.3 % (20.0-44.0); MEAN CORPUSCULAR HGB CONC 33 g/dl (31.0-36.0); MEAN CORPUSCULAR VOLUME 90 fL (82-100); MONOCYTES # (AUTO) 1.1 /CMM (0.1-1.30); MONOCYTES % (AUTO) 8.8 % (2.0-12.0); NEUTROPHILS # (AUTO) 9.9 /CMM (1.8-8.9); NEUTROPHILS % (AUTO) 81.6 % (43.0-81.0); PLATELET COUNT (AUTO) 225 /CMM (150-450); RED BLOOD CELL COUNT(AUTO) 4.13 MIL/uL (4.0-5.2); WHITE BLOOD COUNT (AUTO) 12.1 K/uL (4.3-11.0)
[2020-07-11] MEDS ORDERED: ERGOCALCIFEROL (VITAMIN D 2) 50,000 UNIT CAPSULE PO SCH (09:00)
[2020-07-11] MEDS: MUPIROCIN OINT 2% 22 GM TUBE NS SCH (09:23)
[2020-07-11] MEDS: CLOTRIMAZOLE 1% 15 GM TUBE TP SCH (09:23)
[2020-07-11] MEDS: Z GUARD REMEDY 2 OZ OINT TP SCH (09:24)
[2020-07-11 12:00] VITALS: BP 171/79
[2020-07-11] MEDS: HYDROCODONE/APAP 5/325MG TABLET PO PRN (12:14)
--- NOTE | 2020-07-11 12:47 | NUR ---
patient seen and evaluated by physical therapist,per PT patient unable to tolerate sitting heart rate 60,s while having PT. MADE AWARE.
[2020-07-11] MEDS ORDERED: NITR100C15 PO (13:33)
--- NOTE | 2020-07-11 14:10 | NUR ---
patient refused iv meds and discussed she is being discharge back to [facility] around 4pm.
--- NOTE | 2020-07-11 14:10 | NUR ---
luca coronel notified and ok not to give ferlicit.pharmacy made aware.
[2020-07-11 16:00] VITALS: BP_SYST 138; BP_DIAS 53; BP_DIAS 65
--- NOTE | 2020-07-11 16:00 | NUR ---
patient refused to have discharge photo taken.
--- NOTE | 2020-07-11 16:00 | NUR ---
KEITH RN NOTES GAVE REPORT TO NURSE IN FOUR SEASON. PT IS RETURNING BACK TO HER FACILITY. PT VS WNL. PT IS ON RA IN HER 98%. NO RESPIRATORY DISTRESS NOTED . ALL MEDS ARE GIVEN. PAIN MED AND MAGNESIUM WAS GIVEN. PT HAD 2 BOWEL MOVEMENTS. PT NEEDS WERE MET. SAFETY MEASUREMENTS WERE IMPLEMENTED. AMBULANCE CREW TOOK THE LAST BP AND SAFELY TRANSPORTED HER TO THE CAR. PT DC SAFELY.
== END 2020-07-11 16:40 | DRG 644 ==
LOC: ER 13:17 → ICU 14:52 → TELE 07-09 12:46 → TELE1 07-09 19:24
PROVIDERS: ATTEND Nurse Practitioner Acute Care
DX: E22.2 Syndrome of inappropriate secretion of antidiuretic hormone (principal); N39.0 Urinary tract infection, site not specified; D68.69 Other thrombophilia; R00.1 Bradycardia, unspecified; I48.91 Unspecified atrial fibrillation; G20 Parkinson's disease; F02.80 Dementia in other diseases classified elsewhere, unspecified severity, without behavioral disturbance, psychotic disturbance, mood disturbance, and anxiety; D50.9 Iron deficiency anemia, unspecified; M21.612 Bunion of left foot; M21.611 Bunion of right foot; Z79.01 Long term (current) use of anticoagulants; E83.51 Hypocalcemia; E78.5 Hyperlipidemia, unspecified; E66.9 Obesity, unspecified; J44.9 Chronic obstructive pulmonary disease, unspecified; M20.42 Other hammer toe(s) (acquired), left foot; M20.41 Other hammer toe(s) (acquired), right foot; F20.9 Schizophrenia, unspecified; Z68.36 Body mass index [BMI] 36.0-36.9, adult; L89.526 Pressure-induced deep tissue damage of left ankle; L89.896 Pressure-induced deep tissue damage of other site; E86.1 Hypovolemia; L53.8 Other specified erythematous conditions; B96.20 Unspecified Escherichia coli [E. coli] as the cause of diseases classified elsewhere; Z96.641 Presence of right artificial hip joint; Z74.01 Bed confinement status; I10 Essential (primary) hypertension
CPT/HCPCS: 36415; 71045-TC; 80048-TC; 80053-TC; 80076-TC; 80162-TC; 81000-TC; 82728-TC; 83540-TC; 83605-TC; 83735-TC; 84100-TC; 84300-TC; 84443-TC; 84484-TC; 84550-TC; 85025-TC; 85730-TC; 87040-TC; 87081-TC; 87086-TC; 87186-TC; 97112-TC; 97530-TC; G0378; J0696; J1162; J2916; J7030; J7040; J7050; J7060; U0003-CS

== ENCOUNTER 2023-04-03 16:44 | Inpatient (IN) | payer MEDICARE, OTHER ==
[~2023-04-03] VITALS: Ht 170.2 cm; Wt 110.8 kg
[~2023-04-03 16:44] MED LIST changes: -AMIO200T4 PO; -DIGO250T PO; -DILT-4 PO; -METO25TA20 PO; +NITR100C15 PO; +PANT40TA2 PO; +ZOLP5TAB2 PO
[2023-04-03] MEDS ORDERED: methylPREDNISolone SOD SUCC 125 MG/2ML VIAL IV ONE (17:00)
[2023-04-03] MEDS ORDERED: IPRATROPIUM NEB FS 0.5 MG/2.5 ML AMPUL.NEB NEB ONE (17:00)
[2023-04-03] MEDS ORDERED: ALBUTEROL FS 2.5 MG/3 ML VIAL.NEB NEB ONE (17:00)
[2023-04-03] MEDS ORDERED: ACET-2605 PO (17:01)
[2023-04-03] MEDS ORDERED: CRAN425C6 PO (17:01)
[2023-04-03] MEDS ORDERED: RISP0.2515 PO (17:01)
[2023-04-03] MEDS ORDERED: METO50TA16 PO (17:01)
[2023-04-03] MEDS ORDERED: BISA10SU11 RC (17:01)
[2023-04-03] MEDS ORDERED: AMLO-212 PO (17:01)
[2023-04-03] MEDS ORDERED: MAGN400T26 PO (17:01)
[2023-04-03] MEDS ORDERED: methylPREDNISolone SOD SUCC 125 MG/2ML VIAL ONE (17:27)
[2023-04-03 17:43] LABS: BASOPHILS % (AUTO) 0.2 % (0.0-2.0); EOSINOPHILS % (AUTO) 0.1 % (0.0-6.0); HEMATOCRIT 32 % (33-45); HEMOGLOBIN 9.9 g/dL (11.5-14.8); LYMPHOCYTES # (AUTO) 0.4 K/uL (0.8-4.8); LYMPHOCYTES % (AUTO) 2.1 % (20.0-44.0); MEAN CORPUSCULAR HGB CONC 31 g/dl (31.0-36.0); MEAN CORPUSCULAR VOLUME 82 fL (82-100); MONOCYTES # (AUTO) 0.9 K/uL (0.1-1.30); MONOCYTES % (AUTO) 5.2 % (2.0-12.0); NEUTROPHILS # (AUTO) 15.3 K/uL (1.8-8.9); NEUTROPHILS % (AUTO) 92.4 % (43.0-81.0); PLATELET COUNT (AUTO) 209 K/uL (150-450); RED BLOOD CELL COUNT(AUTO) 3.83 MIL/uL (4.0-5.2); WHITE BLOOD COUNT (AUTO) 16.6 K/uL (4.3-11.0)
[2023-04-03] MEDS ORDERED: ALBUTEROL FS 2.5 MG/3 ML VIAL.NEB ONE (17:44)
[2023-04-03] MEDS ORDERED: IPRATROPIUM NEB FS 0.5 MG/2.5 ML AMPUL.NEB ONE (17:44)
[2023-04-03] MEDS ORDERED: ACETAMINOPHEN ES 500 MG TABLET ONE (17:58)
[2023-04-03] MEDS ORDERED: PIPERACI/TAZO 3.375GM/D5W 50ML PB IV ONE ×2 (17:58→22:54)
[2023-04-03] MEDS ORDERED: ACETAMINOPHEN ES 500 MG TABLET PO ONE (18:00)
[2023-04-03] MEDS ORDERED: VANCOMYCIN 1 GM in IV D5W 250 ML IV ONE (18:00)
[2023-04-03] MEDS ORDERED: PIPERACILLIN /TAZOBACTAM 3.375 G in IV D5W 50 ML IV ONE (18:00)
[2023-04-03 18:08] LABS: CALCIUM, SERUM 8.7 mg/dL (8.5-10.1); CARBON DIOXIDE 21 mmol/L (21-32); CHLORIDE 99 mmol/L (98-107); CREATININE 1.4 mg/dL (0.6-1.3); GLUCOSE 171 mg/dL (74-106); POTASSIUM 4.2 mmol/L (3.5-5.1); SODIUM SERUM 132 mmol/L (136-145); UREA NITROGEN, BLOOD 23 mg/dL (7-18)
[2023-04-03 18:22] LABS: ALANINE AMINOTRANSFERASE 17 U/L (12-78); ALKALINE PHOSPHATASE 56 U/L (46-116); ASPARTATE AMINOTRANSFERASE 10 U/L (15-37); BILIRUBIN,DIRECT 0.2 mg/dL (0.0-0.2); BILIRUBIN,TOTAL 0.6 mg/dL (0.2-1.0); TOTAL PROTEIN, SERUM 7.1 g/dL (6.4-8.2)
[2023-04-03] MEDS ORDERED: FUROSEMIDE 20 MG/2 ML VIAL IV ONE (19:30)
[2023-04-03] MEDS ORDERED: FUROSEMIDE 20 MG/2 ML VIAL ONE (19:33)
[2023-04-03] MEDS ORDERED: MAG HYDROX/AL HYDROX/SIMETH 30 ML UDC PO PRN (20:30)
[2023-04-03] MEDS ORDERED: BISACODYL SUPP (10 MG) 10 MG/SUPP.RECT SUPP.RECT RC PRN (20:30)
[2023-04-03] MEDS ORDERED: ZOLPIDEM TARTRATE 5 MG TABLET PO PRN (20:30)
[2023-04-03] MEDS ORDERED: Z GUARD REMEDY 4 OZ OINT TP PRN (20:30)
[2023-04-03] MEDS ORDERED: NA PHOS,M-B/NA PHOS,DI-BA 1 EA ENEMA RC PRN (20:30)
[2023-04-03] MEDS ORDERED: MAGNESIUM HYDROXIDE 30 ML UDC PO PRN ×2 (20:30)
[2023-04-03] MEDS ORDERED: HYDROCODONE/APAP 5/325MG TABLET PO PRN (20:30)
[2023-04-03] MEDS ORDERED: METOPROLOL TARTRATE INJ 5 MG/5 ML AMPUL IV ONE (20:30)
[2023-04-03] MEDS ORDERED: ONDANSETRON HCL/PF 4 MG/2 ML VIAL IVP PRN (20:30)
[2023-04-03 21:10] VITALS: BP 138/80
[2023-04-03 21:36] LABS: BILIRUBIN,URINE NEGATIVE (NEGATIVE); COLOR,URINE YELLOW (YELLOW); LEUKOCYTE ESTERASE ,URINE 1+ (NEGATIVE); NITRITE, URINE POSITIVE (NEGATIVE); PH,URINE 6.5 (5.0-8.0); PROTEIN,URINE NEGATIVE (NEGATIVE); UGLUCOSE NEGATIVE (NEGATIVE); UROBILINOGEN,URINE 0.2 EU/dL (0.2)
[2023-04-03 21:56] LABS: BACTERIA,URINE 2+ /HPF (None Seen)
[2023-04-03 21:57] LABS: MUCUS,URINE Few /LPF (None Seen)
[2023-04-03] MEDS ORDERED: ENOXAPARIN SODIUM 40 MG/0.4 ML DISP.SYRIN SQ SCH (22:00)
[2023-04-03] MEDS: SENNOSIDES 8.6 MG TABLET PO SCH (22:28)
[2023-04-03 23:17] VITALS: BP 138/80
[2023-04-03] MEDS: PIPERACILLIN /TAZOBACTAM 3.375 G in IV D5W 50 ML IV SCH (23:20)
[2023-04-04] VITALS: BP 136/57
[2023-04-04 04:00] VITALS: BP 142/85
[2023-04-04] MEDS ORDERED: PIPERACI/TAZO 3.375GM/D5W 50ML PB IV ONE (04:13)
[2023-04-04] MEDS ORDERED: METOPROLOL TARTRATE INJ 5 MG/5 ML AMPUL IVP PRN (05:00)
[2023-04-04] MEDS: PIPERACILLIN /TAZOBACTAM 3.375 G in IV D5W 50 ML IV SCH (05:03)
[2023-04-04 07:00] VITALS: BP 132/80
[2023-04-04 08:20] LABS: BASOPHILS % (AUTO) 0.1 % (0.0-2.0); HEMATOCRIT 33 % (33-45); HEMOGLOBIN 10.5 g/dL (11.5-14.8); LYMPHOCYTES # (AUTO) 0.4 K/uL (0.8-4.8); LYMPHOCYTES % (AUTO) 2.8 % (20.0-44.0); MEAN CORPUSCULAR HGB CONC 32 g/dl (31.0-36.0); MEAN CORPUSCULAR VOLUME 82 fL (82-100); MONOCYTES # (AUTO) 0.2 K/uL (0.1-1.30); MONOCYTES % (AUTO) 1.9 % (2.0-12.0); NEUTROPHILS # (AUTO) 12.2 K/uL (1.8-8.9); NEUTROPHILS % (AUTO) 95.2 % (43.0-81.0); PLATELET COUNT (AUTO) 203 K/uL (150-450); RED BLOOD CELL COUNT(AUTO) 4.06 MIL/uL (4.0-5.2); WHITE BLOOD COUNT (AUTO) 12.8 K/uL (4.3-11.0)
[2023-04-04] MEDS: METOPROLOL TARTRATE 50 MG TABLET PO SCH ×2 (08:21→16:59)
[2023-04-04] MEDS: MULTIVITAMIN/LUTEIN/MINERALS 1 TAB PO SCH (08:21)
[2023-04-04] MEDS: risperiDONE 1 MG TABLET PO SCH ×2 (08:21→16:25)
[2023-04-04] MEDS: CALCIUM CARB 600MG /VIT D 1 EACH TABLET PO SCH (08:21)
[2023-04-04] MEDS: TOPIRAMATE 100 MG TABLET PO SCH ×2 (08:22→16:25)
[2023-04-04] MEDS: BENZTROPINE MESYLATE (1 MG) 1 MG TABLET PO SCH ×2 (08:22→16:25)
[2023-04-04] MEDS: AMLODIPINE BESYLATE 5 MG TABLET PO SCH (08:22)
[2023-04-04] MEDS: ACETAMINOPHEN 325 MG TABLET PO PRN ×2 (08:26→22:47)
[2023-04-04 08:38] LABS: CALCIUM, SERUM 8.8 mg/dL (8.5-10.1); CREATININE 1.7 mg/dL (0.6-1.3); MAGNESIUM 2.2 mg/dL (1.8-2.4); PHOSPHORUS 3.1 mg/dL (2.5-4.9); POTASSIUM 3.6 mmol/L (3.5-5.1)
[2023-04-04] MEDS ORDERED: CRANBERRY EXT/C/L. SPOROGENES 405 MG/TAB TABLET PO SCH (09:00)
[2023-04-04] MEDS: IPRATROPIUM NEB FS 0.5 MG/2.5 ML AMPUL.NEB NEB SCH ×3 (10:00→19:30)
[2023-04-04] MEDS: ALBUTEROL HALF STRENGTH 1.25 MG/3 ML VIAL.NEB NEB SCH ×3 (10:00→19:30)
[2023-04-04] MEDS: methylPREDNISolone SOD SUCC 125 MG/2ML VIAL IV SCH ×2 (10:49→16:42)
[2023-04-04 11:40] LABS: ABG BASE EXCESS -3.9 mmol/L; ABG OXYGEN SATURATION 97.9 % (92.0-98.5); ABG PCO2 33.3 mmHg (35.0-45.0); ABG PH 7.399 (7.350-7.450); ABG PO2 102.4 mmHg (75.0-100.0); AaDO2 57.9 mmHg; COHb 1.2 % (0.5-1.5); MetHb 0.3 % (0.0-1.5); O2Hb 96.4 % (94.0-97.0); SITE, ABG Left Radial; VENT MODE, BG 2 LPM NC
[2023-04-04 12:00] VITALS: BP 122/66
[2023-04-04] MEDS ORDERED: PIPERACILLIN /TAZOBACTAM 3.375 G in IV D5W 50 ML IV SCH (12:00)
[2023-04-04] MEDS: ZOSYN IVPB 3.375 G in IV D5W 50ml IV SCH ×2 (12:16→17:03)
[2023-04-04 16:19] VITALS: BP 127/68
[2023-04-04] MEDS: GUAIFENESIN 300 MG/15 ML UDC PO PRN (16:26)
[2023-04-04 16:42] LABS: CREATININE, URINE 55.8 MG/DL (30.0-125.0)
[2023-04-04 17:00] LABS: BILIRUBIN,URINE NEGATIVE (NEGATIVE); COLOR,URINE YELLOW (YELLOW); LEUKOCYTE ESTERASE ,URINE 1+ (NEGATIVE); NITRITE, URINE NEGATIVE (NEGATIVE); PROTEIN,URINE 1+ mg/dl (NEGATIVE); UGLUCOSE NEGATIVE (NEGATIVE); UROBILINOGEN,URINE 0.2 EU/dL (0.2)
[2023-04-04 17:07] LABS: RBC,URINE 21-50 /HPF (0-2)
[2023-04-04 17:08] LABS: BACTERIA,URINE 1+ /HPF (None Seen); SQUAMOUS EPITHELIAL CELL,UR 0-2 /HPF (None Seen)
[2023-04-04] MEDS: DILTIAZEM HCL 30 MG TABLET PO SCH (18:00)
[2023-04-04] MEDS ORDERED: VANCOMYCIN 1 GM in IV D5W 250ml IV SCH (18:00)
[2023-04-04] MEDS: APIXABAN 5 MG TABLET PO SCH (19:20)
[2023-04-04 20:00] VITALS: BP 159/71
[2023-04-04] MEDS ORDERED: ENOXAPARIN SODIUM 30 MG/0.3 ML DISP.SYRIN SQ SCH (21:00)
[2023-04-04] MEDS: SENNOSIDES 8.6 MG TABLET PO SCH (21:49)
[2023-04-05] MEDS: ZOSYN IVPB 3.375 G in IV D5W 50ml IV SCH ×5 (00:24→23:49)
[2023-04-05] MEDS: DILTIAZEM HCL 30 MG TABLET PO SCH ×5 (00:27→23:48)
[2023-04-05] MEDS: ALBUTEROL HALF STRENGTH 1.25 MG/3 ML VIAL.NEB NEB SCH ×4 (01:30→19:30)
[2023-04-05] MEDS: IPRATROPIUM NEB FS 0.5 MG/2.5 ML AMPUL.NEB NEB SCH ×4 (01:30→19:30)
[2023-04-05 04:00] VITALS: BP 152/76
[2023-04-05 08:00] VITALS: BP 142/46
[2023-04-05] MEDS: methylPREDNISolone SOD SUCC 125 MG/2ML VIAL IV SCH ×2 (09:03→15:00)
[2023-04-05] MEDS: CALCIUM CARB 600MG /VIT D 1 EACH TABLET PO SCH (09:04)
[2023-04-05] MEDS: APIXABAN 5 MG TABLET PO SCH ×2 (09:07→18:52)
[2023-04-05 09:08] LABS: BASOPHILS % (AUTO) 0.1 % (0.0-2.0); HEMATOCRIT 36 % (33-45); LYMPHOCYTES # (AUTO) 0.8 K/uL (0.8-4.8); LYMPHOCYTES % (AUTO) 4.1 % (20.0-44.0); MEAN CORPUSCULAR HGB CONC 31 g/dl (31.0-36.0); MEAN CORPUSCULAR VOLUME 84 fL (82-100); MONOCYTES # (AUTO) 0.9 K/uL (0.1-1.30); MONOCYTES % (AUTO) 4.8 % (2.0-12.0); NEUTROPHILS # (AUTO) 16.7 K/uL (1.8-8.9); PLATELET COUNT (AUTO) 235 K/uL (150-450); RED BLOOD CELL COUNT(AUTO) 4.28 MIL/uL (4.0-5.2); WHITE BLOOD COUNT (AUTO) 18.4 K/uL (4.3-11.0)
[2023-04-05] MEDS: METOPROLOL TARTRATE 50 MG TABLET PO SCH ×2 (09:09→18:51)
[2023-04-05] MEDS: AMLODIPINE BESYLATE 5 MG TABLET PO SCH (09:10)
[2023-04-05] MEDS: MULTIVITAMIN/LUTEIN/MINERALS 1 TAB PO SCH (09:11)
[2023-04-05] MEDS: TOPIRAMATE 100 MG TABLET PO SCH ×2 (09:16→18:51)
[2023-04-05] MEDS: BENZTROPINE MESYLATE (1 MG) 1 MG TABLET PO SCH ×2 (09:17→18:51)
[2023-04-05] MEDS: risperiDONE 1 MG TABLET PO SCH ×2 (09:19→18:51)
[2023-04-05 09:51] LABS: CREATININE 1.3 mg/dL (0.6-1.3); POTASSIUM 4.2 mmol/L (3.5-5.1)
[2023-04-05 09:57] LABS: ALBUMIN 3.1 g/dL (3.4-5.0); BILIRUBIN,TOTAL 0.2 mg/dL (0.2-1.0); MAGNESIUM 2.3 mg/dL (1.8-2.4); PHOSPHORUS 2.8 mg/dL (2.5-4.9); TOTAL PROTEIN, SERUM 7.9 g/dL (6.4-8.2)
[2023-04-05 15:41] VITALS: BP 135/60
[2023-04-05] MEDS: VANCOMYCIN 1.25 GM in IV D5W 250 ML IV SCH (19:01)
[2023-04-05 20:00] VITALS: BP 115/65
[2023-04-05] MEDS: SENNOSIDES 8.6 MG TABLET PO SCH (22:00)
[2023-04-06] VITALS: BP 139/82
[2023-04-06] MEDS: IPRATROPIUM NEB FS 0.5 MG/2.5 ML AMPUL.NEB NEB SCH ×4 (01:30→19:30)
[2023-04-06] MEDS: ALBUTEROL HALF STRENGTH 1.25 MG/3 ML VIAL.NEB NEB SCH ×4 (01:30→19:30)
[2023-04-06] MEDS: ZOSYN IVPB 3.375 G in IV D5W 50ml IV SCH ×3 (05:21→17:06)
[2023-04-06] MEDS: DILTIAZEM HCL 30 MG TABLET PO SCH ×2 (05:24→12:24)
[2023-04-06 06:20] LABS: BASOPHILS % (AUTO) 0.1 % (0.0-2.0); EOSINOPHILS % (AUTO) 0.1 % (0.0-6.0); HEMATOCRIT 32 % (33-45); HEMOGLOBIN 10.2 g/dL (11.5-14.8); LYMPHOCYTES # (AUTO) 1.5 K/uL (0.8-4.8); LYMPHOCYTES % (AUTO) 10.1 % (20.0-44.0); MEAN CORPUSCULAR HGB CONC 31 g/dl (31.0-36.0); MEAN CORPUSCULAR VOLUME 82 fL (82-100); MONOCYTES # (AUTO) 1.2 K/uL (0.1-1.30); MONOCYTES % (AUTO) 8.2 % (2.0-12.0); NEUTROPHILS # (AUTO) 12.3 K/uL (1.8-8.9); NEUTROPHILS % (AUTO) 81.5 % (43.0-81.0); PLATELET COUNT (AUTO) 250 K/uL (150-450); RED BLOOD CELL COUNT(AUTO) 3.94 MIL/uL (4.0-5.2); WHITE BLOOD COUNT (AUTO) 15.1 K/uL (4.3-11.0)
[2023-04-06 06:34] LABS: CALCIUM, SERUM 8.8 mg/dL (8.5-10.1); CREATININE 1.3 mg/dL (0.6-1.3); POTASSIUM 4.1 mmol/L (3.5-5.1)
[2023-04-06 07:30] VITALS: BP 131/70
[2023-04-06] MEDS: TOPIRAMATE 100 MG TABLET PO SCH ×2 (09:08→17:30)
[2023-04-06] MEDS: methylPREDNISolone SOD SUCC 125 MG/2ML VIAL IV SCH (09:08)
[2023-04-06] MEDS: CALCIUM CARB 600MG /VIT D 1 EACH TABLET PO SCH (09:08)
[2023-04-06] MEDS: METOPROLOL TARTRATE 50 MG TABLET PO SCH ×2 (09:09→17:38)
[2023-04-06] MEDS: MULTIVITAMIN/LUTEIN/MINERALS 1 TAB PO SCH (09:10)
[2023-04-06] MEDS: risperiDONE 1 MG TABLET PO SCH ×2 (09:10→17:30)
[2023-04-06] MEDS: BENZTROPINE MESYLATE (1 MG) 1 MG TABLET PO SCH ×2 (09:10→17:30)
[2023-04-06] MEDS: APIXABAN 5 MG TABLET PO SCH ×2 (09:12→17:31)
[2023-04-06] MEDS: AMLODIPINE BESYLATE 5 MG TABLET PO SCH (09:17)
[2023-04-06 12:00] VITALS: BP 128/77
[2023-04-06 16:00] VITALS: BP 115/77
[2023-04-06] MEDS: VANCOMYCIN 1.25 GM in IV D5W 250 ML IV SCH (18:41)
[2023-04-06 18:52] VITALS: BP 115/77
[2023-04-06 20:00] VITALS: BP 114/57
[2023-04-06] MEDS: SENNOSIDES 8.6 MG TABLET PO SCH (22:01)
[2023-04-07] VITALS: BP 139/84
[2023-04-07] MEDS: ZOSYN IVPB 3.375 G in IV D5W 50ml IV SCH ×5 (00:06→23:47)
[2023-04-07] MEDS: DILTIAZEM HCL 30 MG TABLET PO SCH ×4 (00:09→17:07)
[2023-04-07] MEDS: IPRATROPIUM NEB FS 0.5 MG/2.5 ML AMPUL.NEB NEB SCH ×4 (01:42→20:26)
[2023-04-07] MEDS: ALBUTEROL HALF STRENGTH 1.25 MG/3 ML VIAL.NEB NEB SCH ×4 (01:42→20:26)
[2023-04-07 04:00] VITALS: BP 135/98
[2023-04-07 07:00] VITALS: BP 135/87
[2023-04-07 07:09] LABS: BASOPHILS % (AUTO) 0.2 % (0.0-2.0); EOSINOPHILS % (AUTO) 0.5 % (0.0-6.0); HEMATOCRIT 39 % (33-45); HEMOGLOBIN 11.4 g/dL (11.5-14.8); LYMPHOCYTES % (AUTO) 8.7 % (20.0-44.0); MEAN CORPUSCULAR HGB CONC 29 g/dl (31.0-36.0); MEAN CORPUSCULAR VOLUME 89 fL (82-100); MONOCYTES # (AUTO) 1.1 K/uL (0.1-1.30); MONOCYTES % (AUTO) 9.6 % (2.0-12.0); NEUTROPHILS # (AUTO) 9.3 K/uL (1.8-8.9); PLATELET COUNT (AUTO) 238 K/uL (150-450); RED BLOOD CELL COUNT(AUTO) 4.39 MIL/uL (4.0-5.2); WHITE BLOOD COUNT (AUTO) 11.5 K/uL (4.3-11.0)
[2023-04-07 07:27] LABS: CALCIUM, SERUM 8.9 mg/dL (8.5-10.1); CREATININE 1.4 mg/dL (0.6-1.3); MAGNESIUM 2.3 mg/dL (1.8-2.4); PHOSPHORUS 3.1 mg/dL (2.5-4.9); POTASSIUM 4.1 mmol/L (3.5-5.1)
[2023-04-07] MEDS: MULTIVITAMIN/LUTEIN/MINERALS 1 TAB PO SCH (08:40)
[2023-04-07] MEDS: BENZTROPINE MESYLATE (1 MG) 1 MG TABLET PO SCH ×2 (08:40→16:11)
[2023-04-07] MEDS: risperiDONE 1 MG TABLET PO SCH ×2 (08:40→16:01)
[2023-04-07] MEDS: TOPIRAMATE 100 MG TABLET PO SCH ×2 (08:40→16:01)
[2023-04-07] MEDS: METOPROLOL TARTRATE 50 MG TABLET PO SCH ×2 (08:40→16:01)
[2023-04-07] MEDS: CALCIUM CARB 600MG /VIT D 1 EACH TABLET PO SCH (08:41)
[2023-04-07] MEDS: predniSONE 20 MG TABLET PO SCH (08:41)
[2023-04-07] MEDS: APIXABAN 5 MG TABLET PO SCH ×2 (08:42→16:01)
[2023-04-07 12:00] VITALS: BP 133/83
[2023-04-07] MEDS: GUAIFENESIN 300 MG/15 ML UDC PO PRN (13:46)
[2023-04-07 16:00] VITALS: BP 121/74
[2023-04-07] MEDS: VANCOMYCIN 1.25 GM in IV D5W 250 ML IV SCH (17:08)
[2023-04-07 20:14] VITALS: BP 109/62
[2023-04-07] MEDS: SENNOSIDES 8.6 MG TABLET PO SCH (21:09)
[2023-04-08] MEDS: DILTIAZEM HCL 30 MG TABLET PO SCH ×3 (00:04→12:51)
[2023-04-08] MEDS: IPRATROPIUM NEB FS 0.5 MG/2.5 ML AMPUL.NEB NEB SCH ×3 (01:30→13:30)
[2023-04-08] MEDS: ALBUTEROL HALF STRENGTH 1.25 MG/3 ML VIAL.NEB NEB SCH ×3 (01:30→13:30)
[2023-04-08] MEDS: ACETAMINOPHEN 325 MG TABLET PO PRN (03:46)
[2023-04-08 04:21] VITALS: BP 139/67
[2023-04-08] MEDS: ZOSYN IVPB 3.375 G in IV D5W 50ml IV SCH ×2 (05:38→12:51)
[2023-04-08 07:36] LABS: BASOPHILS # (AUTO) 0.1 K/uL (0.0-0.2); BASOPHILS % (AUTO) 0.4 % (0.0-2.0); EOSINOPHILS % (AUTO) 1.6 % (0.0-6.0); HEMATOCRIT 35 % (33-45); LYMPHOCYTES # (AUTO) 1.3 K/uL (0.8-4.8); LYMPHOCYTES % (AUTO) 9.6 % (20.0-44.0); MEAN CORPUSCULAR HGB CONC 32 g/dl (31.0-36.0); MEAN CORPUSCULAR VOLUME 83 fL (82-100); MONOCYTES # (AUTO) 1.2 K/uL (0.1-1.30); NEUTROPHILS # (AUTO) 10.6 K/uL (1.8-8.9); NEUTROPHILS % (AUTO) 79.4 % (43.0-81.0); PLATELET COUNT (AUTO) 249 K/uL (150-450); RED BLOOD CELL COUNT(AUTO) 4.19 MIL/uL (4.0-5.2); WHITE BLOOD COUNT (AUTO) 13.4 K/uL (4.3-11.0)
[2023-04-08] MEDS ORDERED: APIX5TAB PO (09:13)
[2023-04-08] MEDS ORDERED: DILT240T12 PO (09:13)
[2023-04-08] MEDS ORDERED: METO50TA16 PO (09:13)
[2023-04-08] MEDS ORDERED: VANC1.2526 IV (09:13)
[2023-04-08] MEDS ORDERED: PRED20TA PO (09:13)
[2023-04-08] MEDS: TOPIRAMATE 100 MG TABLET PO SCH (09:50)
[2023-04-08] MEDS: risperiDONE 1 MG TABLET PO SCH (09:50)
[2023-04-08] MEDS: CALCIUM CARB 600MG /VIT D 1 EACH TABLET PO SCH (09:50)
[2023-04-08] MEDS: predniSONE 20 MG TABLET PO SCH (09:50)
[2023-04-08] MEDS: MULTIVITAMIN/LUTEIN/MINERALS 1 TAB PO SCH (09:50)
[2023-04-08] MEDS: BENZTROPINE MESYLATE (1 MG) 1 MG TABLET PO SCH (09:51)
[2023-04-08] MEDS: METOPROLOL TARTRATE 50 MG TABLET PO SCH (09:51)
[2023-04-08] MEDS: APIXABAN 5 MG TABLET PO SCH (09:53)
[2023-04-08 11:30] LABS: CALCIUM, SERUM 8.9 mg/dL (8.5-10.1); CREATININE 1.4 mg/dL (0.6-1.3); MAGNESIUM 2.2 mg/dL (1.8-2.4); PHOSPHORUS 2.9 mg/dL (2.5-4.9); POTASSIUM 3.5 mmol/L (3.5-5.1)
[2023-04-08 12:00] VITALS: BP 109/72
[2023-04-08 15:09] VITALS: BP 115/76
== END 2023-04-08 15:40 | DRG 871 ==
LOC: ER 16:47 → TELE 20:39
PROVIDERS: ADMIT Nurse Practitioner Acute Care; ATTEND Internal Medicine
PROC: 05H633Z Insertion of Infusion Device into Left Subclavian Vein, Percutaneous Approach (ICD-10-PCS; principal; 2023-04-04)
PROC: B547ZZA Ultrasonography of Left Subclavian Vein, Guidance (ICD-10-PCS; 2023-04-04)
DX: A41.9 Sepsis, unspecified organism (principal); I50.33 Acute on chronic diastolic (congestive) heart failure; J96.01 Acute respiratory failure with hypoxia; N17.0 Acute kidney failure with tubular necrosis; E44.0 Moderate protein-calorie malnutrition; E87.1 Hypo-osmolality and hyponatremia; N39.0 Urinary tract infection, site not specified; J44.1 Chronic obstructive pulmonary disease with (acute) exacerbation; E87.20 Acidosis, unspecified; I21.A1 Myocardial infarction type 2; E66.2 Morbid (severe) obesity with alveolar hypoventilation; I13.0 Hypertensive heart and chronic kidney disease with heart failure and stage 1 through stage 4 chronic kidney disease, or unspecified chronic kidney disease; D63.8 Anemia in other chronic diseases classified elsewhere; E88.09 Other disorders of plasma-protein metabolism, not elsewhere classified; G40.909 Epilepsy, unspecified, not intractable, without status epilepticus; M19.90 Unspecified osteoarthritis, unspecified site; Z96.641 Presence of right artificial hip joint; I48.91 Unspecified atrial fibrillation; E78.5 Hyperlipidemia, unspecified; F03.90 Unspecified dementia, unspecified severity, without behavioral disturbance, psychotic disturbance, mood disturbance, and anxiety; E66.9 Obesity, unspecified; Z68.38 Body mass index [BMI] 38.0-38.9, adult; Z71.3 Dietary counseling and surveillance; F20.9 Schizophrenia, unspecified; Z86.73 Personal history of transient ischemic attack (TIA), and cerebral infarction without residual deficits; Z20.822 Contact with and (suspected) exposure to COVID-19; N18.9 Chronic kidney disease, unspecified
CPT/HCPCS: 36415; 36600; 71045-TC; 80048-TC; 80053-TC; 80061-TC; 80076-TC; 80202-TC; 81001; 82533; 82570-TC; 83605-TC; 83735-TC; 83880; 84100-TC; 84300-TC; 84443-TC; 84484-TC; 85025-TC; 87040-TC; 87081-TC; 87086-TC; 93307-TC; 94799-TC; A4223; A6407; C9803; G0378; J1650; J1940; J2543; J2930; J3370; J3490; J7040; J7060